=== PATIENT | male | born 1935 | race Caucasian/White ===

== ENCOUNTER 2017-01-25 05:20 | Day surgery (SDC) | payer OTHER, MEDICARE ==
[2017-01-24 17:25] VITALS: BMI 24.3
[2017-01-25 08:02] VITALS: TEMP 98.2
[2017-01-25] MEDS ORDERED: methylPREDNISolone ACET (DEPO) 80 MG/1 ML VIAL ONE (09:23)
[2017-01-25] MEDS ORDERED: BUPIVACAINE HCL/PF 0.25% (2.5MG/ML) 10 ML VIAL ONE (09:23)
[2017-01-25] MEDS ORDERED: BUPIVACAINE HCL/PF 0.5% (5MG/ML) 10 ML VIAL ONE (09:23)
[2017-01-25] MEDS ORDERED: methylPREDNISolone ACET (DEPO) 80 MG/1 ML VIAL IJ ONE ×2 (09:42→09:46)
[2017-01-25] MEDS ORDERED: LIDOCAINE HCL 1%, 10 MG/ML (50 mL VIAL) IJ ONE ×2 (09:42→09:44)
[2017-01-25] MEDS ORDERED: BUPIVACAINE HCL/PF 0.5% (5MG/ML) 10 ML VIAL IJ ONE ×2 (09:43→09:46)
[2017-01-25 12:53] VITALS: BP 100/60; PULSE 85
--- NOTE | 2017-01-25 22:59 | OP ---
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 ATTENDING SURGEON: Jorden Stone M.D. PROCEDURE: Right L5 epidural steroid injection under intraoperative fluoroscopy. ANESTHESIA: Local anesthesia with monitored anesthesia care. ANESTHESIOLOGIST: Radha Dutton M.D. INDICATION: The patient is a 81-year-old male with intractable lower back pain, lumbar radiculopathy. He has previously undergone 1 epidural steroid injection with partial relief of his symptoms. The pain has now recurred. He did experience some urinary incontinence after last injection, but he did receive IV anesthetic agent at that time. He is going to try this injection without IV sedation. The risks of procedure including but not limited to bleeding, infection, spinal headache, and neurologic injury. The patient understands indication for the procedure, procedure in detail, risks and benefits and alternative for treatment of his lumbar condition and wishes to proceed. No guarantee was given for a favorable outcome. PROCEDURE IN DETAIL: The patient was taken to the operating room. He was placed in prone position with a pillow under his hips. Lumbar region was cleaned with alcohol and prepped with Betadine. A skin wheal was raised with 5 mL of 1% Xylocaine. A 22-gauge spinal needle was inserted under AP and lateral fluoroscopic guidance from right-sided approach to L5-S1. Loss of resistance technique was utilized. There was no CSF or blood backflow. Then 80 mg of Depo-Medrol and 1 mL of 0.25% Marcaine was injected. The needle was withdrawn and sterile bandage applied. The patient tolerated the procedure well and was returned back into the supine position, moving both upper and lower extremities well. He did not complain of headache. Interlaminar approach was used with this L5-S1 injection. OR timeout procedure was followed. JORDEN STONE M.D. [id number]
== END 2017-01-25 11:30 | disposition home or self-care (01) ==
LOC: JASU-SURG 05:20
PROVIDERS: ATTEND Neurological Surgery
PROC: 3E0S33Z Introduction of Anti-inflammatory into Epidural Space, Percutaneous Approach (ICD-10-PCS; 2017-01-25)
PROC: B01BYZZ Fluoroscopy of Spinal Cord using Other Contrast (ICD-10-PCS; 2017-01-25)
PROC: 3E0S3BZ Introduction of Anesthetic Agent into Epidural Space, Percutaneous Approach (ICD-10-PCS; principal; 2017-01-25 09:00)
DX: M51.16 Intervertebral disc disorders with radiculopathy, lumbar region (principal)
CPT/HCPCS: 76000-TC

== ENCOUNTER 2017-03-07 12:03 | Inpatient (IN) | payer OTHER, MEDICARE ==
--- NOTE | 2017-03-07 12:18 | PDOC ---
History of Present Illness - General History Source: Patient, Family Exam Limitations: No Limitations - History of Present Illness Initial Comments: 03/07/17 14:06 The patient is a 81 year old male, with significant past medical history of Parkinsons disease, BPH, chronic back pain, who presents today complaining of a left hip injury s/p fall. The patient explains that he was in the backyard when he accidentally tripped on a pail and fell onto his left side onto a scalloped brick garden bed. He states that the left hip pain is 8/10 in severity and notes that he has some scrapes on the lateral left thigh. He denies head trauma and LOC. He denies chest pain, palpitations, SOB. He denies dizziness, lightheadedness, changes in vision. He denies fever, nausea, vomiting, chills. Allergies: none reported Surgical Hx: hernia repairs, ulcer repairs PCP- Dr. Vogel <Haritha Parra - Last Filed: 03/07/17 18:31> - General History Source: Patient Exam Limitations: No Limitations <Lizzie Cardoza - Last Filed: 03/09/17 07:56> - General Stated Complaint: FELL Time Seen by Provider: 03/07/17 12:16 Past History <Haritha Parra - Last Filed: 03/07/17 18:31> - Past Medical History Anemia: No Asthma: No Cancer: No Cardiac Disorders: No CVA: No COPD: No CHF: No Dementia: No Diabetes: No GI Disorders: No Disorders: No HTN: No Hypercholesterolemia: No Liver Disease: No Seizures: No Thyroid Disease: No - Surgical History Abdominal Surgery: Yes (HERNIA X2) Appendectomy: No Cardiac Surgery: No Cholecystectomy: No Lung Surgery: No Neurologic Surgery: No Orthopedic Surgery: No - Psycho/Social/Smoking Cessation Hx Anxiety: No Suicidal Ideation: No Smoking History: Never smoked Hx Alcohol Use: No Drug/Substance Use Hx: No Hx Substance Use Treatment: No <Lizzie Cardoza - Last Filed: 03/09/17 07:56> - Past Medical History Allergies/Adverse Reactions: Allergies Allergy/AdvReac Type Severity Reaction Status Date / Time No Known Allergies Allergy Verified 03/07/17 12:28 Home Medications: Ambulatory Orders Carbidopa/Levodopa [Carbidopa-Levodopa 25-250 Tab] 1 each PO TID 03/07/17 Entacapone [Comtan -] 200 mg PO TID 03/07/17 Pramipexole Di-HCl [Pramipexole ER] 1.5 mg PO TID 03/07/17 Review of Systems - Review of Systems Able to Perform ROS?: Yes Comments:: 03/07/17 14:09 GENERAL/CONSTITUTIONAL: No: fever, chills, weakness, loss of appetite. HEAD, EYES, EARS, NOSE AND THROAT: No: change in vision, ear pain, discharge, sore throat, throat swelling. CARDIOVASCULAR: No: chest pain, lightheadedness, palpitations, syncope RESPIRATORY: No: cough, shortness of breath, wheezing, hemoptysis, stridor. GASTROINTESTINAL: No: nausea, vomiting, abdominal cramping, diarrhea, rectal bleeding, constipation. GENITOURINARY: No: dysuria, hematuria, frequency, urgency, flank pain. MUSCULOSKELETAL: +left hip injury s/p fall. No: back pain, neck pain, joint pain, muscle swelling or pain SKIN: No: lesions, pallor, rash or easy bruising. NEUROLOGIC: No: headache, vertigo, paresthesias, weakness ENDOCRINE: No: unexplained weight gain or loss HEMATOLOGIC/LYMPHATIC: No: anemia, easy bleeding, swelling nodes <Haritha Parra - Last Filed: 03/07/17 18:31> *Physical Exam - Vital Signs Last Vital Signs Temp Pulse Resp BP Pulse Ox 97.5 F L 83 17 151/81 100 03/07/17 12:25 03/07/17 12:25 03/07/17 12:25 03/07/17 12:25 03/07/17 12:25 - Physical Exam Comments: 03/07/17 14:09 GENERAL: The patient is in no acute distress. HEAD: Normal with no signs of trauma. EYES: PERRLA, EOMI, sclera anicteric, conjunctiva clear. ENT: Ears normal, nares patent, oropharynx clear without exudates. Moist mucous membranes. NECK: Normal range of motion, supple without lymphadenopathy, JVD, or masses. LUNGS: Breath sounds equal, clear to auscultation bilaterally. No wheezes, and no crackles. HEART:Regular rate and rhythm, normal S1 and S2 without murmur, rub or gallop. ABDOMEN: Soft, nontender, normoactive bowel sounds. No guarding, no rebound. EXTREMITIES: +Left hip deformity. no edema. No clubbing or cyanosis. No erythema.. NEUROLOGICAL: +Baseline non-intentional tremor. Cranial nerves II through XII grossly intact. Normal speech. MUSCULOSKELETAL: Back nontender to palpation, no CVA tenderness SKIN: Warm, Dry, normal turgor, no rashes or lesions noted. <Haritha Parra - Last Filed: 03/07/17 18:31> Heart Score/ECG Review #1 ECG reviewed & interpreted by me at: 15:16 03/07/17 15:16 Twelve-lead EKG was performed and reviewed by me. There is normal sinus rhythm with a normal rate of 76 bpm. The intervals are abnormal - pr: 184ms, QRS:142ms , QTc:490ms. RBBB <Lizzie Cardoza - Last Filed: 03/09/17 07:56> ED Treatment Course - LABORATORY CBC & Chemistry Diagram: 03/07/17 13:00 03/07/17 13:00 - ADDITIONAL ORDERS Additional order review: Laboratory Results 03/07/17 13:00 Sodium 139 Potassium 4.1 Chloride 103 Carbon Dioxide 25 Anion Gap 11 BUN 19 H Creatinine 0.9 Creat Clearance w eGFR > 60 Random Glucose 120 H Calcium 8.8 Total Bilirubin 0.6 AST 27 ALT 13 Alkaline Phosphatase 193 H Creatine Kinase 234 Troponin I < 0.02 Total Protein 7.2 Albumin 4.0 03/07/17 13:00 RBC 4.22 MCV 91.7 MCHC 33.4 RDW 12.5 MPV 6.6 L Neutrophils % 84.5 H D Lymphocytes % 8.9 D Monocytes % 6.1 Eosinophils % 0.1 D Basophils % 0.4 - RADIOLOGY Radiograph Interpretation: 03/07/17 15:07 EXAM#: TYPE/EXAM: RESULT: [id number] CT/CERVICAL SPINE CT W/O CONTR Reason for the study. Fall with hip trauma CT scan of the cervical spine C-. Direct axial images were obtained from the base of the skull through T1-T2. The study was supplemented with computer-generated sagittal, coronal reconstruction images. Findings. No acute fracture, compression deformity, of subluxation is seen. Normal spinolaminar line. Normal relationship of odontoid to anterior arch of C1. Intact odontoid. Normal symmetrical articulation of atlantoaxial and occipito atlantal joints. A normal variant unfused posterior arch of C1 is noted The visualized portion of the posterior fossa, skull base, and uppermost of the thoracic spine show no abnormality. Normal height of vertebral bodies. No evidence of central spinal canal stenosis. Normal alignment of the facet joints. The intraspinal contents cannot be adequately evaluated due to the beam hardening artifacts. The airways are patent. No evidence of prevertebral soft tissue swelling. The lung apices are clear. Impression. No evidence of acute fracture, compression deformities, subluxation, prevertebral soft tissue swelling. Reported By: Dmitry Rodriguez MD 03/07/17 1432 EXAM#: TYPE/EXAM: RESULT: [id number] CT/HEAD CT WITHOUT CONTRAST CT scan of the brain c-. Status post fall. Findings. Serial axial images of the brain were obtained from foramen magnum to the cranial vertex without intravenous contrast. The study was supplemented with computer-generated coronal and sagittal reconstruction images. [employer] image was reviewed. There is no evidence of acute subarachnoid hemorrhage, acute intra-axial or extra-axial fluid collection consistent with subdural or epidural hematoma. No mass effect, midline shift, acute territorial ischemic changes, herniation or edema is present. Normal tam matter white matter differentiation. Age-related involutional changes are noted. Examination of the bone windows show no fracture. The visualized paranasal sinuses and mastoid air cells are clear. Hypoplastic right matter sinus. Intact facial bones Symmetrical ocular globes. Unremarkable retro-orbital soft tissues. Impression. No evidence of acute intracranial hemorrhage, edema, midline shift, mass effect , or skull fracture. No CT evidence of acute territorial infarction. Reported By: Dmitry Rodriguez MD 03/07/17 1413 EXAM#: TYPE/EXAM: RESULT: [id number] RAD/HIP PELVIS-LEFT Fall with hip pain. Single AP of the pelvis. 2. Views of the left hip. Chronic discogenic disease with scoliosis is seen in the visualized lower lumbosacral spine. Comminuted intertrochanteric fracture is seen with avulsion of the lesser trochanter. The left femoral head maintains normal relationship to the acetabulum. No acute bony abnormality seen in the visualized osseous structure and pelvis. Normal articulation of the right hip joint. Impression. Left intertrochanteric comminuted fracture with avulsion of the lesser trochanter. The left femoral head maintains normal relationship to the acetabulum. Reported By: Dmitry Rodriguez MD 03/07/17 1445 EXAM#: TYPE/EXAM: RESULT: [id number] RAD/KNEE 3 POS-LEFT Fall from standing. Left knee 2 views. No acute bony abnormalities are seen. Normal articular surfaces. No meniscal calcifications are seen. No large suprapatellar joint effusion is seen. Impression. No acute bony abnormalities are seen Reported By: Dmitry Rodriguez MD 03/07/17 [id number] - Medications Given in the ED: ED Medications Discontinued Medications Generic Name Dose Route Start Last Admin Trade Name Freq PRN Reason Stop Dose Admin Acetaminophen 975 mg 03/07/17 12:45 03/07/17 12:56 Tylenol - PO 03/07/17 12:46 975 mg ONCE ONE Administration <Haritha Parra - Last Filed: 03/07/17 18:31> - LABORATORY CBC & Chemistry Diagram: 03/08/17 06:20 03/08/17 06:20 <Lizzie Cardoza - Last Filed: 03/09/17 07:56> Medical Decision Making - Medical Decision Making 03/07/17 18:31 Dr. Mcfarlane was paged via office at 2:03pm. Dr. Munson is space controller. Awaiting call back. Dr. Munson was paged at 2:18pm. Dr. Munson called back at 2:20pm and spoke with Dr. Cardoza regarding the patient's care. <Haritha Parra - Last Filed: 03/07/17 18:31> - Medical Decision Making 03/07/17 12:17 A portion of this note was documented by scribe services under my direction. I have reviewed the details of the note, within reason, and agree with the documentation with the following case summary and management plan written by me. Nursing documentation reviewed and incorporated into medical decision making 03/07/17 13:06 This patient is a 81-year-old male with a history of Parkinson's disease, BPH, spinal stenosis/chronic back pain. Patient presents emergency department from home status post a fall from standing. Patient hit a pail by accident fell to the side landing on a [employer] garden bed. Patient denies head trauma. He denies loss of consciousness. Patient states he had no preceding headache, chest pain, palpitations, shortness of breath, focal weakness or numbness. In general patient is ambulatory with an unsteady gait. Currently patient complains of left hip pain, left knee pain. Will do: Basic labs CT head and Cervical spine Xray Hip and left knee Will give tylenol for pain (pt initially refused pain medications) 03/07/17 14:32 xray demonstrates left inter trochanteric fracture Case reviewed with Dr. Munson the patient will be seen by Dr Parsons this evening 03/07/17 14:33 Laboratory Tests 03/07/17 03/07/17 13:00 13:00 WBC 11.3 H D Hgb 12.9 Hct 38.7 Plt Count 253 Neutrophils % 84.5 H D Lymphocytes % 8.9 D BUN 19 H Creatinine 0.9 Creatine Kinase 234 Troponin I < 0.02 Pt in NPO 03/07/17 14:34 Case reviewed with admitting team Will admit to med surg Pending: Jovanny MADDOX PT/Type and screen Clinical Impression: Left hip fracture <Lizzie Cardoza - Last Filed: 03/09/17 07:56> *DC/Admit/Observation/Transfer - Attestations Scribe Attestion: 03/07/17 14:09 Documentation prepared by RAPHAEL Carver, acting as medical scientific officer for Lizzie Cardoza MD. <Haritha Parra - Last Filed: 03/07/17 18:31> - Discharge Dispostion Admit: Yes <Lizzie Cardoza - Last Filed: 03/09/17 07:56> Diagnosis at time of Disposition: Hip fracture, left Qualifiers: Encounter type: initial encounter Fracture type: closed Qualified Code(s): S72.002A - Fracture of unspecified part of neck of left femur, initial encounter for closed fracture - Discharge Dispostion Condition at time of disposition: Stable - Referrals
[2017-03-07 12:28] VITALS: BMI 25.8
[2017-03-07] MEDS ORDERED: ACETAMINOPHEN 325 MG TABLET (FP) PO ONE ×2 (12:45→19:00)
[2017-03-07] MEDS ORDERED: ACETAMINOPHEN 325 MG TABLET (FP) ONE ×2 (12:56→18:10)
[2017-03-07 13:21] LABS: BASOPHIL 0.4 % (0-2.0); EOSINOPHIL 0.1 % (0-4.5); MCH 30.6 pg (25.7-33.7); MCHC 33.4 g/dl (32.0-35.9); MEAN CELL VOLUME 91.7 fl (80-96); MEAN PLT VOLUME 6.6 fl (7.5-11.1); NEUTROPHILS 84.5 % (42.8-82.8); PLATELET COUNT 253 K/MM3 (134-434); RDW 12.5 % (11.9-15.9); WHITE BLOOD COUNT 11.3 K/mm3 (4.0-10.0)
[2017-03-07 13:47] LABS: ANION GAP 11 (8-16); CALCIUM 8.8 mg/dL (8.5-10.1); CO2 25 mmol/L (21-32); COCKROFT - GAULT 70.45; CREATININE 0.9 mg/dL (0.7-1.3); GLUCOSE,RANDOM 120 mg/dL (74-106); SGOT/AST 27 U/L (15-37); SGPT/ALT 13 U/L (12-78)
[2017-03-07 13:51] LABS: ALK PHOS 193 U/L (45-117); BILIRUBIN,TOTAL 0.6 mg/dL (0.2-1.0); TOT PROT 7.2 g/dl (6.4-8.2); TROPONIN I < 0.02 ng/ml (0.00-0.05)
--- NOTE | 2017-03-07 14:22 | HP ---
CHIEF COMPLAINT: "My left hip hurts." PCP: Lela HISTORY OF PRESENT ILLNESS: This is a 81 yo man with PMH Parkinson's and BPH who present for care today with left hip pain s/p trip and fall over bucket onto scalloped garden bricks. HE states that he landed on his left hip and did not strike his head. He then tried to stand but was unable to bear weight. He denies head trauma, LOC, dizziness, SOB or chest pain prior to fall. ER course was notable for: (1) Left trochanter fx (2) negative head CT (3) mild leukocytosis Recent Travel: denies PAST MEDICAL HISTORY: Parkinson's, BPH PAST SURGICAL HISTORY: inguinal hernia repair x2, appendectomy Social History: Smoking: denies Alcohol: denies Drugs: denies Family History: noncontributory Allergies No Known Allergies Allergy (Verified 03/07/17 12:28) HOME MEDICATIONS: Home Medications 3 Medication Instructions Recorded Carbidopa/Levodopa [Carbidopa-Levo 1 each PO Q3H 02/06/14 25-250 Tab] Entacapone [Comtan -] 200 mg PO Q3H 02/06/14 Pramipexole Dihydrochloride 1.5 mg PO TID 02/06/14 [Mirapex -] Ubidecarenone [Co Q-10] 300 mg PO DAILY 01/24/17 Tamsulosin HCl [Flomax] 0.4 mg PO HS 01/25/17 REVIEW OF SYSTEMS CONSTITUTIONAL: Absent: fever, chills, diaphoresis, generalized weakness, malaise, loss of appetite, weight change HEENT: Absent: rhinorrhea, nasal congestion, throat pain, throat swelling, difficulty swallowing, mouth swelling, ear pain, eye pain, visual changes CARDIOVASCULAR: Absent: chest pain, syncope, palpitations, irregular heart rate, lightheadedness , peripheral edema RESPIRATORY: Absent: cough, shortness of breath, dyspnea with exertion, orthopnea, wheezing, stridor, hemoptysis GASTROINTESTINAL: Absent: abdominal pain, abdominal distension, nausea, vomiting, diarrhea, constipation, melena, hematochezia GENITOURINARY: Absent: dysuria, frequency, urgency, hesitancy, hematuria, flank pain, genital pain MUSCULOSKELETAL: left hip pain Absent: myalgia, joint swelling, back pain, neck pain SKIN: Absent: rash, itching, pallor HEMATOLOGIC/IMMUNOLOGIC: Absent: easy bleeding, easy bruising, lymphadenopathy, frequent infections ENDOCRINE: Absent: unexplained weight gain, unexplained weight loss, heat intolerance, cold intolerance NEUROLOGIC: Absent: headache, focal weakness or paresthesias, dizziness, unsteady gait, seizure, mental status changes, bladder or bowel incontinence PSYCHIATRIC: Absent: anxiety, depression, suicidal or homicidal ideation, hallucinations. PHYSICAL EXAMINATION Vital Signs - 24 hr 3 03/07/17 12:25 Temperature 97.5 F L Pulse Rate 83 Respiratory 17 Rate Blood Pressure 151/81 O2 Sat by Pulse 100 Oximetry (%) GENERAL: Awake, alert, and fully oriented, in no acute distress. HEAD: Normal with no signs of trauma. EYES: Pupils equal, round and reactive to light, extraocular movements intact, sclera anicteric, conjunctiva clear. No lid lag. EARS, NOSE, THROAT: Ears normal, nares patent, oropharynx clear without exudates. Moist mucous membranes. NECK: Normal range of motion, supple without lymphadenopathy, JVD, or masses. LUNGS: Breath sounds equal, clear to auscultation bilaterally. No wheezes, and no crackles. No accessory muscle use. HEART: Regular rate and rhythm, normal S1 and S2 without murmur, rub or gallop. ABDOMEN: Soft, nontender, not distended, normoactive bowel sounds, no guarding, no rebound, no masses. No hepatomegaly or splenomegaly. MUSCULOSKELETAL: Normal range of motion at all joints. No bony deformities or tenderness. No CVA tenderness. UPPER EXTREMITIES: 2+ pulses, warm, well-perfused. No cyanosis. No clubbing. No peripheral edema. LOWER EXTREMITIES: 2+ pulses, warm, well-perfused. No calf tenderness. No peripheral edema. LLE shortened and externally rotated. Posterior deformity palpated with crepitus. NEUROLOGICAL: Cranial nerves II-XII intact. Normal speech. Gait not tested. Tremulous. PSYCHIATRIC: Cooperative. Good eye contact. Appropriate mood and affect. SKIN: Warm, dry, normal turgor, no rashes or lesions noted, normal capillary refill. Laboratory Results - last 24 hr 3 03/07/17 03/07/17 13:00 13:00 WBC 11.3 H D RBC 4.22 Hgb 12.9 Hct 38.7 MCV 91.7 MCHC 33.4 RDW 12.5 Plt Count 253 MPV 6.6 L Neutrophils % 84.5 H D Lymphocytes % 8.9 D Monocytes % 6.1 Eosinophils % 0.1 D Basophils % 0.4 Sodium 139 Potassium 4.1 Chloride 103 Carbon Dioxide 25 Anion Gap 11 BUN 19 H Creatinine 0.9 Creat Clearance w eGFR > 60 Random Glucose 120 H Calcium 8.8 Total Bilirubin 0.6 AST 27 ALT 13 Alkaline Phosphatase 193 H Creatine Kinase 234 CK-MB (CK-2) 2.439 Troponin I < 0.02 Total Protein 7.2 Albumin 4.0 IMAGING: CTH as read by MD Rodriguez: No evidence of acute intracranial hemorrhage, edema, midline shift, mass effect or skull fracture. No CT evidence of territorial infarction. CT c-spine as read by MD Rodriguez: No evidence of acute fracture, compression deformities, subluxation or prevertebral soft tissue swelling. Left hip/pelvis: LEft intertrochanteric comminuted fracture with avulsion of the lesser trochanter. The left femoral head maintains relationship to the acetabulum. ASSESSMENT/PLAN: A: This is a 81 yo man with PMH Parkinson's and BPH who present for care today with left hip pain s/p trip and fall over bucket onto scalloped garden bricks. He states that he landed on his left hip and did not strike his head. He then tried to stand but was unable to bear weight. He denies head trauma, LOC, dizziness, SOB or chest pain prior to fall. Given deformity and radiologic findings, pt has fractured left trochanter. P: 1. left trochanter fracture -rest -ice -tylenol PRN -ortho Oh consulted -NPO for ORIF 2. Leukocytosis -likely inflammatory response from trauma -trend WBC 3. Parkinson's disease -home meds 4. BPH -home Flomax 5. F/E/N -NS@75 -NPO for ORIF 03/08 6. PPX -hold Lovenox until after surgery Dispo: This patient requires inpatient admission for acute medical condition. Code Status: FULL CODE Visit type - Emergency Visit Emergency Visit: Yes ED Registration Date: 03/07/17 Care time: The patient presented to the Emergency Department on the above date and was hospitalized for further evaluation of their emergent condition. - New Patient This patient is new to me today: Yes Date on this admission: 03/08/17 - Critical Care Critical Care patient: No
[2017-03-07] MEDS ORDERED: SODIUM CHLORIDE 1,000 ML IV STA (14:33)
[2017-03-07] MEDS ORDERED: morphine CARPU-JECT 2 MG/1 ML DISP.SYRIN IVPUSH ONE (15:09)
[2017-03-07 15:26] LABS: INR 1.1 (0.82-1.09); PROTHROMBIN TIME (PATIENT) 12.1 SEC (9.98-11.88)
[2017-03-07] MEDS ORDERED: morphine CARPU-JECT 2 MG/1 ML DISP.SYRIN ONE (15:36)
[2017-03-07 16:16] LABS: URINE APPEARANCE CLEAR; URINE BILIRUBIN NEGATIVE (NEGATIVE); URINE BLOOD NEGATIVE (NEGATIVE); URINE COLOR AMBER; URINE GLUCOSE (UA) NEGATIVE (NEGATIVE); URINE KETONE 1+ (NEGATIVE); URINE LEUK ESTERASE NEGATIVE (NEGATIVE); URINE NITRITE NEGATIVE (NEGATIVE); URINE PROTEIN NEGATIVE (NEGATIVE); URINE UROBILINOGEN NEGATIVE E.U./dl (0.2-1.0)
--- NOTE | 2017-03-07 17:07 | CONSULT ---
Consult - text type - Consultation Consultation Note: HISTORY OF PRESENT ILLNESS: Asked to eval this 81M who sustained a left hip fracture after fall onto bricks doing work outside his house. In ER with daughter, , and brother at bedside PAST MEDICAL HISTORY: Parkinson's, BPH PAST SURGICAL HISTORY: inguinal hernia repair x2, appendectomy Social History: Smoking: denies Alcohol: denies Drugs: denies Family History: noncontributory Allergies: NKDA ROS: No recent fevers/chills/weight loss PHYSICAL EXAMINATION: AOx3 in no apparent distress, breathing comfortably, obvious tremor No obvious skin lesions, NTTP through spine B/L UE FROM without pain, distal pulses 2+, no deficits LLE shortened B/L LE well hydrated, NTTP, no peripheral edema, distal pulses 2+ RLE hip ROM without pain IMAGING: Left displaced Intertrochanteric Prox Femur Fracture, Unstable PLAN: For IMN in the morning pending medical clearance venodynes b/L for DVT prophylaxis, hold pharmacologic anticoagulation until post op NPO p midnight R/B/A discussed with patient and family: Risks include anesthesia complications , infection, non union, malunion, limb length discrepancy, persistent pain, hardware failure, NV injury.
[2017-03-07] MEDS ORDERED: oxyCODONE HCL 5 MG TABLET PO PRN (20:14)
[2017-03-07] MEDS ORDERED: ACETAMINOPHEN 325 MG TABLET (FP) PO PRN (20:14)
[2017-03-08 07:16] LABS: BASOPHIL 0.3 % (0-2.0); EOSINOPHIL 0.2 % (0-4.5); MCH 30.6 pg (25.7-33.7); MCHC 33.5 g/dl (32.0-35.9); MEAN CELL VOLUME 91.3 fl (80-96); MEAN PLT VOLUME 6.8 fl (7.5-11.1); NEUTROPHILS 70.4 % (42.8-82.8); PLATELET COUNT 246 K/MM3 (134-434); RDW 12.8 % (11.9-15.9); WHITE BLOOD COUNT 8.6 K/mm3 (4.0-10.0)
[2017-03-08 07:35] LABS: CALCIUM 8.6 mg/dL (8.5-10.1)
[2017-03-08 07:38] LABS: COCKROFT - GAULT 73.73; CREATININE 0.8 mg/dL (0.7-1.3)
[2017-03-08] MEDS ORDERED: morphine CARPU-JECT 2 MG/1 ML DISP.SYRIN IVPUSH PRN ×2 (08:16→13:21)
[2017-03-08] MEDS ORDERED: ENOXAPARIN NA (PORCINE) 40 MG/0.4 ML DISP.SYRIN SQ SCH (10:00)
[2017-03-08] MEDS ORDERED: LIDOCAINE HCL/PF 2% SDV 5ML VIAL ONE (11:24)
[2017-03-08] MEDS ORDERED: PROPOFOL 20 ML ONE (11:25)
[2017-03-08] MEDS ORDERED: MIDAZOLAM HCL 2 MG/2 ML SINGLE DOSE VIAL ONE (11:26)
[2017-03-08] MEDS ORDERED: ceFAZolin SODIUM 1 GM VIAL ONE (11:26)
[2017-03-08] MEDS ORDERED: ceFAZolin SODIUM 1 GM VIAL IVPB ONE ×2 (11:36)
[2017-03-08] MEDS ORDERED: DEXAMETHASONE SOD PHOSPHATE 4 MG/1 ML VIAL ONE (11:42)
--- NOTE | 2017-03-08 12:35 | EKG ---
Test Reason : Blood Pressure : / mmHG Vent. Rate : 076 BPM Atrial Rate : 076 BPM P-R Int : 184 ms QRS Dur : 142 ms QT Int : 436 ms P-R-T Axes : 026 003 031 degrees QTc Int : 490 ms NORMAL SINUS RHYTHM RIGHT BUNDLE BRANCH BLOCK ABNORMAL ECG NO PREVIOUS ECGS AVAILABLE Confirmed by LISA WILDE, MAGDY ([id number]) on 03/08/2017 12:34:30 PM Referred By: Confirmed By:MAGDY GONZALEZ MD
[2017-03-08] MEDS ORDERED: IBUPROFEN 800 MG/8 ML IJ IVPB PRN (13:07)
[2017-03-08] MEDS ORDERED: ACETAMINOPHEN 1000 MG/100 ML VIAL (NON FORMULARY) IVPB PRN (13:08)
[2017-03-08] MEDS ORDERED: LORAZEPAM CARPU-JECT 2 MG/ML DISP.SYRIN IVPUSH ONE (13:10)
[2017-03-08] MEDS ORDERED: SODIUM CHLORIDE 0.45% 1,000 ML IV SCH (13:15)
[2017-03-08] MEDS ORDERED: oxyCODONE HCL 5 MG TABLET PO PRN (13:21)
[2017-03-08] MEDS ORDERED: ENTACAPONE 200 MG TABLET PO SCH (14:00)
[2017-03-08] MEDS ORDERED: PRAMIPEXOLE DI HCL 1.5 MG PO SCH (14:00)
[2017-03-08] MEDS ORDERED: CARBIDOPA/LEVODOPA 25/250 TABLET (FP) PO SCH (14:00)
[2017-03-08] MEDS: CARBIDOPA/LEVODOPA 25/250 TABLET (FP) PO SCH ×2 (14:26→21:09)
[2017-03-08] MEDS: ENTACAPONE 200 MG TABLET PO SCH ×2 (14:26→21:10)
[2017-03-08] MEDS ORDERED: ACETAMINOPHEN INJECTION 100 ML IVPB ONE (14:35)
--- NOTE | 2017-03-08 16:05 | PN ---
Physical Exam: SUBJECTIVE: Patient seen and examined after hip surgery. He is obtunded given ativan in PACU d/t restlessness. Now calm, family at bedside. OBJECTIVE: Vital Signs Period Temp Pulse Resp BP Sys/Bonner Pulse Ox Last 24 Hr 97.3 F-99.1 F 72-87 12-20 119-141/63-76 97 PE Neuro: arousable to touch Pulm: clear anteriorly CV: s1 s2 rrr no mrg Abd: s nt nd + bs Ext: L hip dressing, warm +dp Laboratory Results - last 24 hr 03/08/17 03/08/17 06:20 06:20 WBC 8.6 RBC 3.94 L Hgb 12.1 Hct 36.0 MCV 91.3 MCHC 33.5 RDW 12.8 Plt Count 246 MPV 6.8 L Neutrophils % 70.4 Lymphocytes % 19.1 D Monocytes % 10.0 Eosinophils % 0.2 D Basophils % 0.3 Sodium 140 Potassium 4.2 Chloride 105 Carbon Dioxide 27 Anion Gap 8 BUN 14 D Creatinine 0.8 Random Glucose 123 H Calcium 8.6 Urine Color Urine Appearance Urine pH Ur Specific [place] Urine Protein Urine Glucose (UA) Urine Ketones Urine Blood Urine Nitrite Urine Bilirubin Urine Urobilinogen Ur Leukocyte Esterase Blood Type Antibody Screen Current Medications Generic Name Dose Route Start Last Admin Trade Name Rejiq PRN Reason Stop Dose Admin Acetaminophen 1,000 mg 03/08/17 13:08 03/08/17 14:36 Ofirmev Injection - IVPB 03/09/17 07:09 1,000 mg Q6H PRN Administration FEVER OR PAIN Acetaminophen 650 mg 03/08/17 13:21 Tylenol - PO Q6H PRN FEVER OR PAIN Carbidopa/Levodopa 1 each 03/08/17 14:00 03/08/17 14:26 Sinemet 25/250 - PO Not Given TID NASIR Docusate Sodium 100 mg 03/08/17 22:00 Colace - PO BID NASIR Enoxaparin Sodium 40 mg 03/09/17 10:00 Lovenox - SQ DAILY NASIR Entacapone 200 mg 03/08/17 14:00 03/08/17 14:26 Comtan - PO Not Given TID NASIR Fentanyl 50 mcg 03/08/17 13:07 03/08/17 13:20 Sublimaze Injection - IVPUSH 03/11/17 13:08 50 mcg [id number] PRN Administration PAIN Cefazolin Sodium 50 mls @ 100 mls/hr 03/08/17 18:00 Ancef 1gm Ivpb (Pre-Docked) IVPB 03/09/17 17:59 Q8H-IV NASIR Sodium Chloride 1,000 mls @ 75 mls/hr 03/08/17 16:15 Normal Saline - IV ASDIR NASIR Ibuprofen 800 mg 03/08/17 13:07 Caldolor Injection - IVPB Q6H PRN PAIN Morphine Sulfate 1 mg 03/08/17 13:21 Morphine Injection - IVPUSH Q4H PRN PAIN Non-Formulary Medication 1.5 mg 03/08/17 14:00 Pramipexole Di-Hcl [Pramipexole Er] PO TID NASIR Oxycodone HCl 5 mg 03/08/17 13:21 Roxicodone - PO Q4H PRN PAIN Imaging: CTH : No evidence of acute intracranial hemorrhage, edema, midline shift, mass effect or skull fracture. No CT evidence of territorial infarction. CT c-spine : No evidence of acute fracture, compression deformities, subluxation or prevertebral soft tissue swelling. Left hip/pelvis: Left intertrochanteric comminuted fracture with avulsion of the lesser trochanter. The left femoral head maintains relationship to the acetabulum. Assessment: 81 year old male with PMH Parkinson's and BPH admitted s/p fall over bucket onto scalloped garden bricks. Plan: 1. Left Trochanter Fracture - Post op Left IMN - Pain control - Lovenox 40mg daily 2. Leukocytosis - Likely inflammatory response from trauma, resolved 3. Parkinson's disease - Continue Sinemet TID - Continue Entacapone TID - Continue Pramipexole Di-Hcl 4. BPH - Continue Flomax 5. F/E/N - NS @75 - Soft diet Visit type - Emergency Visit Emergency Visit: Yes ED Registration Date: 03/07/17 Care time: The patient presented to the Emergency Department on the above date and was hospitalized for further evaluation of their emergent condition. - New Patient This patient is new to me today: Yes Date on this admission: 03/08/17 - Critical Care Critical Care patient: No
[2017-03-08] MEDS ORDERED: SODIUM CHLORIDE 1,000 ML IV SCH (16:15)
[2017-03-08] MEDS: CEFAZOLIN (PRE-DOCKED) 50 ML IVPB SCH (17:13)
[2017-03-08] MEDS: PRAMIPEXOLE DIHYDROCHLORIDE 1.5 MG TABLET PO SCH (21:08)
[2017-03-08] MEDS: DOCUSATE SODIUM 100 MG CAPSULE (FP) PO SCH (21:08)
[2017-03-09] MEDS: CEFAZOLIN (PRE-DOCKED) 50 ML IVPB SCH ×2 (02:30→10:58)
[2017-03-09] MEDS: CARBIDOPA/LEVODOPA 25/250 TABLET (FP) PO SCH ×5 (05:39→21:13)
[2017-03-09] MEDS: PRAMIPEXOLE DIHYDROCHLORIDE 1.5 MG TABLET PO SCH ×3 (05:39→21:16)
[2017-03-09] MEDS: ENTACAPONE 200 MG TABLET PO SCH ×5 (05:39→21:14)
--- NOTE | 2017-03-09 08:11 | PN ---
Progress Note (short form) - Note Progress Note: Anesthesia POD#1 S/P Left Hip Gamma nail under GA VSS,sitting in the bed,no N/V ,pain is bearable. A/P No complications seen. Mae Michelle MD.
--- NOTE | 2017-03-09 10:20 | PN ---
Progress Note (short form) - Note Progress Note: S: Patient feeling well. Pain well controlled. Minimal pain. Notes some soreness at the surgical site. Was able to walk with the assistance of a walker in PT today. Denies calf pain, CP, SOB, N/V/D, abd pain, fever/chills. O: Vital Signs Temperature 97.8 F 03/09/17 08:00 Pulse Rate 76 03/09/17 08:00 Respiratory Rate 18 03/09/17 08:00 Blood Pressure 109/61 03/09/17 08:00 O2 Sat by Pulse Oximetry (%) 97 03/08/17 15:52 NAD. VSS. Afebrile. L hip exam: Dressings C/D/I. Limited ROM of the hip. FROM knee, ankle and foot. Calves soft, NT. EHL/FHL 5/5 Distal sensation intact. CBC, BMP 03/08/17 06:20 03/08/17 06:20 A/P: 81 y/o male POD #1 s/p IM nail placement left hip -patient doing well -ortho stable -OOB/PT with walker assistance -continue pain control -continue SCDS and anti-coagulation for DVT prophylaxis -dispo planning
[2017-03-09] MEDS ORDERED: PT OWN MED DRAWER 7, Y5N ONE ×3 (10:32→21:06)
[2017-03-09] MEDS: ACETAMINOPHEN 325 MG TABLET (FP) PO PRN (10:48)
[2017-03-09] MEDS: ENOXAPARIN NA (PORCINE) 40 MG/0.4 ML DISP.SYRIN SQ SCH (10:58)
[2017-03-09] MEDS: DOCUSATE SODIUM 100 MG CAPSULE (FP) PO SCH ×2 (10:59→21:14)
--- NOTE | 2017-03-09 11:26 | PN ---
Physical Exam: SUBJECTIVE: Patient seen and examined. He feeling well, he is oob to wheel chair. Denies calf pain, sob. No signs of tremors, tolerating diet. Family at bedside OBJECTIVE: Vital Signs Period Temp Pulse Resp BP Sys/Bonner Pulse Ox Last 24 Hr 97.2 F-99.1 F 73-87 11-20 109-162/61-76 97-99 PE Neuro: alert, awake, cn 2-12intact, oriented to person place time Pulm: CTAB + NC CV: s1 s2 rrr no mrg Abd: s nt nd + bs Ext: L hip dressing, warm, no le edema Active Medications Generic Name Dose Route Start Last Admin Trade Name Freq PRN Reason Stop Dose Admin Acetaminophen 650 mg 03/08/17 13:21 03/09/17 10:48 Tylenol - PO 650 mg Q6H PRN Administration FEVER OR PAIN Carbidopa/Levodopa 1 each 03/09/17 12:00 Sinemet 25/250 - PO Q3H6XD NASIR Docusate Sodium 100 mg 03/08/17 22:00 03/09/17 10:59 Colace - PO 100 mg BID NASIR Administration Enoxaparin Sodium 40 mg 03/09/17 10:00 03/09/17 10:58 Lovenox - SQ 40 mg DAILY NASIR Administration Entacapone 200 mg 03/09/17 12:00 Comtan - PO Q3H6XD NASIR Fentanyl 50 mcg 03/08/17 13:07 03/08/17 13:20 Sublimaze Injection - IVPUSH 03/11/17 13:08 50 mcg [id number] PRN Administration PAIN Cefazolin Sodium 50 mls @ 100 mls/hr 03/08/17 18:00 03/09/17 10:58 Ancef 1gm Ivpb (Pre-Docked) IVPB 03/09/17 17:59 100 mls/hr Q8H-IV NASIR Administration Ibuprofen 800 mg 03/08/17 13:07 Caldolor Injection - IVPB Q6H PRN PAIN Oxycodone HCl 5 mg 03/08/17 13:21 Roxicodone - PO Q4H PRN PAIN Pramipexole Dihydrochloride 1.5 mg 03/08/17 22:00 03/09/17 05:39 Mirapex - PO 1.5 mg TID NASIR Administration Tamsulosin HCl 0.4 mg 03/09/17 11:30 Flomax - PO DAILY@0830 [facility] Assessment: 81 year old male with PMH Parkinson's and BPH admitted s/p fall over bucket onto scalloped garden bricks. Plan: 1. Left Trochanter Fracture - s/p IM nail placement left hip 03/08 - Pain control, transition to PO - Lovenox 40mg daily - Discontinue fluids - PT daily and DC planning 2. Leukocytosis - Resolved 3. Parkinson's disease - Continue Sinemet q3hr - Continue Entacapone q3hr - Continue Mirapex TID 4. BPH - Continue Flomax daily Visit type - Emergency Visit Emergency Visit: Yes ED Registration Date: 03/07/17 Care time: The patient presented to the Emergency Department on the above date and was hospitalized for further evaluation of their emergent condition. - New Patient This patient is new to me today: No - Critical Care Critical Care patient: No
[2017-03-09] MEDS: TAMSULOSIN HCL 0.4 MG CAP.ER.24H (FP) PO SCH (11:31)
[2017-03-09 12:40] LABS: MCH 30.8 pg (25.7-33.7); MCHC 33.5 g/dl (32.0-35.9); MEAN CELL VOLUME 91.9 fl (80-96); MEAN PLT VOLUME 7.1 fl (7.5-11.1); PLATELET COUNT 257 K/MM3 (134-434); WHITE BLOOD COUNT 11.9 K/mm3 (4.0-10.0)
[2017-03-09 13:08] LABS: ALBUMIN 3.5 g/dl (3.4-5.0); ALK PHOS 167 U/L (45-117); ANION GAP 8 (8-16); BILIRUBIN,TOTAL 0.7 mg/dL (0.2-1.0); CALCIUM 8.7 mg/dL (8.5-10.1); CO2 27 mmol/L (21-32); COCKROFT - GAULT 55.98; CREATININE 1.1 mg/dL (0.7-1.3); GLUCOSE,RANDOM 208 mg/dL (74-106); SGOT/AST 37 U/L (15-37); SGPT/ALT 14 U/L (12-78); TOT PROT 7.1 g/dl (6.4-8.2)
--- NOTE | 2017-03-09 15:00 | OP ---
DATE OF OPERATION: 03/08/2017 PREOPERATIVE DIAGNOSIS: Left intertrochanteric proximal femur fracture. POSTOPERATIVE DIAGNOSIS: Left intertrochanteric proximal femur fracture. PROCEDURE PERFORMED: Operative fixation of left intertrochanteric proximal femur fracture with intramedullary device. SURGEON: Enmanuel Parsons MD ANESTHESIA: General. INDICATION: The patient is a 81-year-old male who presented to the emergency room after a fall at home. He sustained a left displaced intertrochanteric proximal femoral fracture. He is indicated for operative fixation. Risks, benefits, and alternatives of the surgery were discussed in detail with the patient and his family. Informed consent was obtained. They understand that the risks inherent to the procedure include but are not limited to infection, neurovascular injury, nonunion, malunion, hardware failure, persistent pain. There is a significant risk of leg length discrepancy and malrotation. All questions were answered, informed consent was obtained. DESCRIPTION OF PROCEDURE: The patient was brought into the operating room by stretcher and transferred onto the fracture table. General endotracheal anesthesia was administered by the anesthesiologist. The left lower extremity was then placed in traction and internal rotation and the right lower extremity in flexion and external rotation. A fluoroscopic C-arm was brought in, and AP and lateral fluoroscopic radiographs showed excellent reduction. The hip was then prepped and draped in the usual sterile fashion and appropriate prophylactic antibiotics were administered. Timeout was performed. An incision was made in line with the proximal femur. A guidewire was then inserted under fluoroscopic guidance into the greater trochanter. A reamer was then passed with a soft tissue protector, and the assembled nail ([place] Gamma nail, 170-mm x 10-mm x 125 degrees) was assembled and passed across the proximal femur. Once it seated to appropriate level, the jig was used to place the guide for the lag screw. A small stab wound was made in the thigh and the guide was inserted. A guidewire was inserted into the center/center position, and the cannulated reamer was then passed. A 100-mm screw was then passed. The set screw was then inserted and tightened all the way and backed out 1/4 turn. The guide for the distal locking screw was then inserted under the jig through a small stab wound, and a 37.5-mm screw was then inserted. All hardware and reduction were in excellent position. The wounds were then copiously irrigated. The deep fascia was closed with No. 1 Vicryl suture. The deep dermal tissues were approximated with 2-0 Vicryl suture, and the skin was closed with hua. A sterile dressing was applied. The patient tolerated the procedure well without complications. Cuco [id number]
[2017-03-09] MEDS: POLYETHYLENE GLYCOL 3350 119 GM BTL PO SCH ×2 (18:59→21:17)
[2017-03-10] MEDS: ACETAMINOPHEN 325 MG TABLET (FP) PO PRN (01:56)
[2017-03-10] MEDS: ENTACAPONE 200 MG TABLET PO SCH ×4 (05:42→14:05)
[2017-03-10] MEDS: PRAMIPEXOLE DIHYDROCHLORIDE 1.5 MG TABLET PO SCH ×2 (05:43→13:25)
[2017-03-10] MEDS: CARBIDOPA/LEVODOPA 25/250 TABLET (FP) PO SCH ×4 (05:43→14:04)
[2017-03-10 06:47] LABS: BASOPHIL 0.7 % (0-2.0); EOSINOPHIL 0.7 % (0-4.5); MCH 31.1 pg (25.7-33.7); MCHC 33.8 g/dl (32.0-35.9); MEAN CELL VOLUME 91.9 fl (80-96); MEAN PLT VOLUME 6.8 fl (7.5-11.1); NEUTROPHILS 58.1 % (42.8-82.8); PLATELET COUNT 226 K/MM3 (134-434); WHITE BLOOD COUNT 8.3 K/mm3 (4.0-10.0)
[2017-03-10 07:21] LABS: CALCIUM 8.7 mg/dL (8.5-10.1)
[2017-03-10 07:22] LABS: COCKROFT - GAULT 74.69; CREATININE 0.8 mg/dL (0.7-1.3)
[2017-03-10] MEDS ORDERED: PT OWN MED DRAWER 7, Y5N ONE ×3 (07:37→12:00)
[2017-03-10] MEDS: TAMSULOSIN HCL 0.4 MG CAP.ER.24H (FP) PO SCH (08:12)
[2017-03-10] MEDS: ENOXAPARIN NA (PORCINE) 40 MG/0.4 ML DISP.SYRIN SQ SCH (09:00)
[2017-03-10] MEDS: POLYETHYLENE GLYCOL 3350 119 GM BTL PO SCH ×2 (09:00)
[2017-03-10] MEDS: DOCUSATE SODIUM 100 MG CAPSULE (FP) PO SCH (09:00)
--- NOTE | 2017-03-10 09:42 | PN ---
Progress Note (short form) - Note Progress Note: Subjective: The patient was seen and examined at the bedside, he has no complaints at this time. He is observed using his incentive spirometer. Current Medications Generic Name Dose Route Start Last Admin Trade Name Freq PRN Reason Stop Dose Admin Acetaminophen 650 mg 03/08/17 13:21 03/10/17 01:56 Tylenol - PO 650 mg Q6H PRN Administration FEVER OR PAIN Carbidopa/Levodopa 1 each 03/09/17 12:00 03/10/17 08:13 Sinemet 25/250 - PO 1 each Q3H6XD NASIR Administration Docusate Sodium 100 mg 03/08/17 22:00 03/10/17 09:00 Colace - PO 100 mg BID NASIR Administration Enoxaparin Sodium 40 mg 03/09/17 10:00 03/10/17 09:00 Lovenox - SQ 40 mg DAILY NASIR Administration Entacapone 200 mg 03/09/17 12:00 03/10/17 08:13 Comtan - PO 200 mg Q3H6XD NASIR Administration Ibuprofen 800 mg 03/08/17 13:07 Caldolor Injection - IVPB Q6H PRN PAIN Oxycodone HCl 5 mg 03/08/17 13:21 Roxicodone - PO Q4H PRN PAIN Polyethylene Glycol 17 gm 03/09/17 19:00 03/10/17 09:00 Miralax (For Daily Use) - PO 17 grams DAILY NASIR Administration Polyethylene Glycol 17 gm 03/09/17 19:15 03/10/17 09:00 Miralax (For Daily Use) - PO Not Given DAILY NASIR Pramipexole Dihydrochloride 1.5 mg 03/08/17 22:00 03/10/17 05:43 Mirapex - PO 1.5 mg TID NASIR Administration Tamsulosin HCl 0.4 mg 03/09/17 11:30 03/10/17 08:12 Flomax - PO 0.4 mg DAILY@0830 NASIR Administration Objective: Vital Signs Period Temp Pulse Resp BP Sys/Bonner Pulse Ox Last 24 Hr 98.0 F-98.7 F 70-75 17-20 92-138/41-74 Physical Exam: General: NAD, A&Ox3 Lungs: CTA bilaterally Heart: RRR, S1S2 Abd: Soft, non-tender, non-distended. Normoactive bowel sounds Ext: Left lateral proximal upper extremity with dressing, c/d/i. 2+ DP/PT bilaterally Neuro: CN 2-12 intact CBCD WBC 8.3 K/mm3 (4.0-10.0) D 03/10/17 06:20 RBC 3.75 M/mm3 (4.00-5.60) L 03/10/17 06:20 Hgb 11.6 GM/dL (11.7-16.9) L 03/10/17 06:20 Hct 34.5 % (35.4-49) L 03/10/17 06:20 MCV 91.9 fl (80-96) 03/10/17 06:20 MCHC 33.8 g/dl (32.0-35.9) 03/10/17 06:20 RDW 13.0 % (11.9-15.9) 03/10/17 06:20 Plt Count 226 K/MM3 (134-434) 03/10/17 06:20 MPV 6.8 fl (7.5-11.1) L 03/10/17 06:20 CMP Sodium 141 mmol/L (136-145) 03/10/17 06:20 Potassium 4.2 mmol/L (3.5-5.1) 03/10/17 06:20 Chloride 104 mmol/L (98-107) 03/10/17 06:20 Carbon Dioxide 29 mmol/L (21-32) 03/10/17 06:20 Anion Gap 8 (8-16) 03/10/17 06:20 BUN 17 mg/dL (7-18) 03/10/17 06:20 Creatinine 0.8 mg/dL (0.7-1.3) D 03/10/17 06:20 Creat Clearance w eGFR > 60 (>60) 03/09/17 12:10 Random Glucose 133 mg/dL (74-106) H D 03/10/17 06:20 Calcium 8.7 mg/dL (8.5-10.1) 03/10/17 06:20 Total Bilirubin 0.7 mg/dL (0.2-1.0) 03/09/17 12:10 AST 37 U/L (15-37) D 03/09/17 12:10 ALT 14 U/L (12-78) 03/09/17 12:10 Alkaline Phosphatase 167 U/L (45-117) H 03/09/17 12:10 Total Protein 7.1 g/dl (6.4-8.2) 03/09/17 12:10 Albumin 3.5 g/dl (3.4-5.0) 03/09/17 12:10 CARDIAC ENZYMES Creatine Kinase 234 IU/L (39-308) 03/07/17 13:00 Troponin I < 0.02 ng/ml (0.00-0.05) 03/07/17 13:00 Microbiology 03/07/17 15:36 Urine - Urine Petty Urine Culture - Final NO GROWTH OBTAINED Assessment: This is a 81 year old male with PMHx of Parkinson's disease, BPH, who presented to the ED s/p fall over bucket onto scalloped garden bricks. Plan: 1) Ortho: Left intertrocanteric fracture - S/p IM nail placement left hip on 03/08 - Pain management - Appreciate ortho consult 2) Neuro: Parkinson's disease - Continue Sinemet q3h - Continue Entacapone q3hr - Continue Mirapex TID 3) : BPH - Continue Flomax 4) F/E/N: - Monitor electrolytes - Soft diet 5) Prophylaxis: - Lovenox 40mg sq daily - PT 6) Dispo: - Awaiting SNF placement CODE STATUS: FULL CODE Visit type - Emergency Visit Emergency Visit: Yes ED Registration Date: 03/07/17 Care time: The patient presented to the Emergency Department on the above date and was hospitalized for further evaluation of their emergent condition. - New Patient This patient is new to me today: Yes Date on this admission: 03/10/17 - Critical Care Critical Care patient: No
[2017-03-10 14:03] VITALS: BP 110/65; PULSE 73; TEMP 98.4
--- NOTE | 2017-03-10 14:09 | DS ---
Physical Examination Vital Signs: Vital Signs Temperature 98.4 F 03/10/17 14:01 Pulse Rate 73 03/10/17 14:01 Respiratory Rate 18 03/10/17 14:01 Blood Pressure 110/65 03/10/17 14:01 O2 Sat by Pulse Oximetry (%) 96 03/10/17 09:00 Labs: CBC, BMP 03/10/17 06:20 03/10/17 06:20 Discharge Summary Reason For Visit: FRACTURE OF LEFT FEMUR Current Active Problems Hip fracture, left (Acute) Condition: Improved - Instructions Diet, Activity, Other Instructions: Please return to the ED with new, persistent, or worsening symptoms. Please follow-up with providers as indicated. Continue SCDs in the rehab facility. Referrals: Chema Vogel MD [Primary Care Provider] - 1 Week Enmanuel Parsons MD [Staff Physician] - (Please follow-up with Dr. Parsons within 2-3 days for post op evaluation) [facility] - Home Medications Comprehensive Discharge Medication List: Ambulatory Orders Carbidopa/Levodopa [Carbidopa-Levodopa 25-250 Tab] 1 each PO Q3H6XD 03/07/17 Entacapone [Comtan -] 200 mg PO Q3H6XD 03/07/17 Pramipexole Di-HCl [Pramipexole ER] 1.5 mg PO TID 03/07/17 Tamsulosin HCl 0.4 mg PO DAILY 03/09/17 Docusate Sodium [Colace -] 100 mg PO BID tab 03/10/17 Enoxaparin [Lovenox -] 40 mg SQ DAILY syr 03/10/17 Oxycodone HCl [Roxicodone -] 5 mg PO Q4H PRN #0 tablet MDD 20mg 03/10/17
== END 2017-03-10 15:51 | DRG 482 ==
LOC: JER 12:03 → JERBED 14:35 → J6S 18:18
PROVIDERS: ADMIT Internal Medicine; ATTEND Registered Nurse
PROC: 0QS706Z Reposition Left Upper Femur with Intramedullary Internal Fixation Device, Open Approach (ICD-10-PCS; principal; 2017-03-08 11:00)
DX: S72.142A Displaced intertrochanteric fracture of left femur, initial encounter for closed fracture (principal); W01.0XXA Fall on same level from slipping, tripping and stumbling without subsequent striking against object, initial encounter; Y93.89 Activity, other specified; Y92.238 Other place in hospital as the place of occurrence of the external cause; G20 Parkinson's disease; N40.0 Benign prostatic hyperplasia without lower urinary tract symptoms; D72.829 Elevated white blood cell count, unspecified
CPT/HCPCS: 36415; 70450-TC; 72125-TC; 73523-TC; 73562-TC-LT; 76000-TC; 80048; 80053; 81003; 82550; 82553; 84484; 85025; 85027; 85610; 86850; 86900; 86901; 87086; 93005; 93010; 94760; 97116-GP; 97161-GP; 99282-25

== ENCOUNTER 2020-05-11 07:05 | Emergency (ER) | payer OTHER, MEDICARE ==
[2020-05-11 07:25] VITALS: BMI 21.9
--- NOTE | 2020-05-11 07:28 | PDOC ---
History of Present Illness - General Chief Complaint: Urinary Problem Stated Complaint: URINARY PROBLEM Time Seen by Provider: 05/11/20 07:28 - History of Present Illness Initial Comments: 84 YOM h/o Parkinson disease presents with decreased urinary frequency of one day duration. Patient reports that last night he had the urge to urinate but was unable to produce much urine. He also experienced some pain and burning with urination. Does mention some chronic constipation as well as lower back pain. He denies blood in urine, fever/chills, chest pain, SOB, nausea, vomiting or diarrhea. Past History - Medical History Allergies/Adverse Reactions: Allergies Allergy/AdvReac Type Severity Reaction Status Date / Time No Known Allergies Allergy Verified 05/11/20 07:20 Home Medications: Ambulatory Orders Carbidopa/Levodopa [Carbidopa-Levodopa 25-250 Tab] 1 each PO Q3H6XD 03/07/17 Entacapone [Comtan -] 200 mg PO Q3H6XD 03/07/17 Pramipexole Di-HCl [Pramipexole ER] 1.5 mg PO TID 03/07/17 Tamsulosin HCl 0.4 mg PO DAILY 03/09/17 Docusate Sodium [Colace -] 100 mg PO BID tab 03/10/17 Enoxaparin [Lovenox -] 40 mg SQ DAILY syr 03/10/17 oxyCODONE HCL [Roxicodone -] 5 mg PO Q4H PRN #0 tablet MDD 20mg 03/10/17 Anemia: No Asthma: No Cancer: No Cardiac Disorders: No CVA: No COPD: No CHF: No Dementia: No Diabetes: No GI Disorders: No Disorders: Yes (PROSTATE ISSUE, UNSURE) HTN: No Hypercholesterolemia: No Liver Disease: No Seizures: No Thyroid Disease: No Other medical history: PARKINSONS - Surgical History Abdominal Surgery: Yes (HERNIA X2) Appendectomy: No Cardiac Surgery: No Cholecystectomy: No Lung Surgery: No Neurologic Surgery: No Orthopedic Surgery: No - Immunization History Immunization Up to Date: Yes - Psycho-Social/Smoking History Smoking History: Never smoked Have you smoked in the past 12 months: No - Substance Abuse Hx (Audit-C & DAST Scrn) How often the patient has a drink containing alcohol: Never Score: In Men: 4 or > Positive; In Women: 3 or > Positive: 0 Screen Result (Pos requires Nsg. Audit-10AR): Negative In the last yr the pt used illegal drug/Rx for NonMed reason: No Score: Yes response is considered Positive: 0 Screen Result (Positive result requires Nsg. DAST-10): Negative Review of Systems - Review of Systems Constitutional: No: Chills, Diaphoresis, Fever, Loss of Appetite, Night Sweats HEENTM: No: Eye Pain, Blurred Vision, Tearing, Recent change in vision, Double Vision, Cataracts Respiratory: No: Cough, Orthopnea, Shortness of Breath, SOB with Exertion, SOB at Rest, Stridor Cardiac (ROS): No: Chest Pain, Edema, Irregular Heart Rate, Lightheadedness, Palpitations ABD/GI: No: Abdominal Distended, Abd. Pain w/ defecation, Blood Streaked Bowels, Constipated, Diarrhea, Difficulty Swallowing : Yes: Burning, Dysuria Musculoskeletal: No: Back Pain, Gout, Joint Pain, Joint Swelling Neurological: No: Headache, Numbness, Paresthesia Psychiatric: No: Frequent Crying, Stressors, Sleep Pattern Change, Change in Appetite Endocrine: No: Excessive Sweating, Flushing Hematologic/Lymphatic: No: Anemia, Blood Clots, Easy Bleeding, Easy Bruising, Bleeding Diathesis *Physical Exam - Vital Signs Last Vital Signs Temp Pulse Resp BP Pulse Ox 98.5 F 120 H 20 120/79 100 05/11/20 07:20 05/11/20 07:20 05/11/20 07:20 05/11/20 07:20 05/11/20 07:20 - Physical Exam General Appearance: Yes: Appropriately Dressed, Cachetic HEENT: positive: EOMI, NAZ, Normal ENT Inspection, Normal Voice, Symmetrical Neck: positive: Trachea midline, Normal Thyroid Respiratory/Chest: positive: Lungs Clear, Normal Breath Sounds Cardiovascular: positive: Regular Rhythm, Regular Rate, S1, S2 Gastrointestinal/Abdominal: positive: Flat, Soft Extremity: positive: Normal Capillary Refill, Normal Inspection Integumentary: positive: Normal Color, Dry, Warm Neurologic: positive: director of gift planning II-XII NML intact, Fully Oriented, Alert, Normal Mood/Affect, Normal Response, Motor Strength 5/5 Medical Decision Making - Medical Decision Making 84 YOM h/o Parkinson disease presents with decreased urinary frequency of one day duration. Patient reports that last night he had the urge to urinate but was unable to produce much urine. He also experienced some pain and burning with urination. Does mention some chronic constipation as well as lower back pain. He denies blood in urine, fever/chills, chest pain, SOB, nausea, vomiting or diarrhea. Patient tachy to 120 on arrival, vitals otherwise wnl. Physical exam revealing of cachetic patient who persistently leans to right side to avoid aggravation of back pain. Physical exam otherwise wnl. ddx includes but is not limited to: UTI, BPH, urinary retention 2/2 medication. plan: UA, UC, cooper catheter, bladder scan reassess: UA and UC were wnl, cathether drained 800mls of urine, post void bladder scan reveals 0ml retained urine. Will d/c patient to home. Dispo: d/c patient to home 05/11/20 18:38 Discharge - Discharge Information Problems reviewed: Yes Clinical Impression/Diagnosis: Acute urinary retention, Urinary retention Condition: Improved Disposition: HOME - Admission No - Follow up/Referral Referrals: Mahad Harmon MD [Primary Care Provider] - - Patient Discharge Instructions Patient Printed Discharge Instructions: DI for Urinary Retention in Men Additional Instructions: You were seen in the emergency department for urinary discomfort/ retention. You received a urinanalysis which showed no evidence of infection. You also received a cooper catheter which was able to completely empty your bladder. You were considered medically stable and safe for discharge. Please follow up with your urologist/ primary care physician for further management. Please return to the emergency department for worsening of symptoms including fever, chills, nausea, vomiting, chest pain, or shortness of breath, or blood in urine or stool. - Post Discharge Activity
[2020-05-11] MEDS ORDERED: ACETAMINOPHEN 325 MG TABLET (FP) PO ONE (07:58)
--- NOTE | 2020-05-11 08:48 | PDOC ---
Attending Attestation - Resident Resident Name: Praveen Miranda - ED Attending Attestation I have performed the following: I have examined & evaluated the patient, The case was reviewed & discussed with the resident, I agree w/resident's findings & plan - HPI HPI: 05/11/20 08:31 84-year-old male with history of BPH on tamsulosin daily presents with urinary retention since last night around 9 PM. Patient was in his usual state of normal health, urinating normally throughout the day, starting at 9 PM had difficulty urinating with increasing suprapubic discomfort throughout the night, no associated nausea/vomiting/fever/dysuria/hematuria. Has had similar episodes in the past, presents for evaluation. Urologist is at [facility] in [place], cannot recall name. - Physicial Exam PE: 05/11/20 08:32 Tachycardia, afebrile, blood pressure normal Well-appearing pleasant gentleman lying in stretcher status post Petty placement Feels markedly improved Heart is regular, lungs are clear Abdomen is soft/nondistended. Previously noted suprapubic discomfort resolved 800 cc of clear urine removed from Petty catheter No CVA tenderness no edema - Medical Decision Making 05/11/20 08:33 84-year-old male with history of BPH presents with urinary retention for less than 12 hours, nonseptic appearing but with suprapubic discomfort, resolved after Petty placement. Urinalysis and urine culture Petty catheter to leg bag Monitor urine output, disposition accordingly with urology 05/11/20 09:14 hematuria without evidence of infection on UA Discharge - Discharge Information Problems reviewed: Yes Clinical Impression/Diagnosis: Acute urinary retention - Follow up/Referral Referrals: Mahad Harmon MD [Primary Care Provider] - - Patient Discharge Instructions - Post Discharge Activity
[2020-05-11 08:54] LABS: EPI CELLS 3 /uL (0-25.1); HYALINE CASTS 0 /uL (0-3.1); PH,URINE 6.5 (5.0-8.0); URINE APPEARANCE CLEAR; URINE BACTERIA 35 /uL (0-1359); URINE BILIRUBIN NEGATIVE (NEGATIVE); URINE COLOR DK YELLOW; URINE GLUCOSE (UA) NEGATIVE (NEGATIVE); URINE KETONE NEGATIVE (NEGATIVE); URINE LEUK ESTERASE NEGATIVE (NEGATIVE); URINE NITRITE NEGATIVE (NEGATIVE); URINE PROTEIN NEGATIVE (NEGATIVE); URINE RBC 220 /uL (0-23.9); URINE UROBILINOGEN 0.2 mg/dL (0.2-1.0); URINE WBC 2 /uL (0-25.8)
[2020-05-11 10:27] VITALS: BP 124/67; PULSE 92; TEMP 98
== END 2020-05-11 10:28 | disposition home or self-care (01) ==
LOC: JER 07:05
DX: R33.9 Retention of urine, unspecified (principal)
CPT/HCPCS: 81003; 87086; 99283-25

== ENCOUNTER 2020-05-25 18:30 | Inpatient (IN) | payer OTHER, MEDICARE ==
--- NOTE | 2020-05-25 18:42 | PDOC ---
Rapid Medical Evaluation Time Seen by Provider: 05/25/20 18:40 Medical Evaluation: Allergies Allergy/AdvReac Type Severity Reaction Status Date / Time No Known Allergies Allergy Verified 05/25/20 18:40 05/25/20 18:40 Pt presents for evaluation of urinary retention. Pt last urinated at 9am when cooper was removed Exam: suprapubic discomfort Orders: cooper Pt to proceed to the ER for further evaluation Discharge Disposition - Diagnosis Acute urinary retention - Referrals - Patient Instructions - Post Discharge Activity
--- NOTE | 2020-05-25 19:20 | PDOC ---
Attending Attestation - Resident Resident Name: Catherine Linder - ED Attending Attestation I have performed the following: I have examined & evaluated the patient, The case was reviewed & discussed with the resident, I agree w/resident's findings & plan - HPI HPI: 05/25/20 19:30 see resident hpi - Physicial Exam PE: 05/25/20 19:30 see resident exam - Medical Decision Making 05/25/20 19:30 84-year-old male with urinary retention after passing voiding trial earlier today at his doctor's office Petty placed by nursing without incident with immediate return of 900 cc of urine Plan for urinalysis/basic labs and eventual DC home pending results with urology outpatient follow-up 05/25/20 19:32 05/25/20 19:33 Discharge - Discharge Information Problems reviewed: Yes Clinical Impression/Diagnosis: Acute urinary retention - Follow up/Referral Referrals: Mahad Harmon MD [Primary Care Provider] - - Patient Discharge Instructions - Post Discharge Activity
--- NOTE | 2020-05-25 19:21 | PDOC ---
History of Present Illness - General Chief Complaint: Urinary Problem Stated Complaint: TROUBLE URINATING Time Seen by Provider: 05/25/20 18:40 - History of Present Illness Initial Comments: Pt is 84yo M with PMH Parkinson disease, BPH who presents with urinary retention. Patient was seen 2 weeks prior here for urinary retention and sent home with a Cooper in place. Since then, he has followed up with a urologist (Dr. Corea?). Today, the urologist removed the cooper @9am, for the patient to attempt urination. Pt was unable to urinate today and had increased suprapubic pressure/pain, told by urologist to come to ED. Reports hx of constipation, but states that he has been having regular BM. [id number] states urine has appeared dark-yellow/orange, but denies any gross hematuria, clots, cloudiness to urine. Denies any f/c, chest pain, SOB, abdominal pain, n/v, loss of appetite. PCP: Aylinucaliza Urologist: Anmol PMH: Parkinson disease, BPH Meds: see chart Allergies: NKDA Speaks Persian, [id number] by bedside Review of Systems CONSTITUTIONAL:denies fever, chills, diaphoresis, generalized weakness, malaise, loss of appetite HEENT:denies rhinorrhea, nasal congestion, sore throat CARDIOVASCULAR:denies chest pain, palpitations, irregular heart rate, lightheadedness RESPIRATORY:denies cough, shortness of breath GASTROINTESTINAL: denies abdominal pain, nausea, vomiting, diarrhea, constipation GENITOURINARY:denies dysuria, frequency, urgency MUSCULOSKELETAL:denies myalgia, arthralgia HEMATOLOGIC/IMMUNOLOGIC:denies easy bleeding, easy bruising ENDOCRINE: denies unexplained weight gain, unexplained weight loss NEUROLOGIC:denies headache, loss of consciousness, mental status changes SKIN:denies rash, itching, pallor Physical Exam General: awake, alert, in no acute distress, well developed, well nourished Head: normocephalic, atraumatic Eyes: PERRL, EOMI, anicteric sclera, conjunctiva clear ENT: Auricles normal inspection, hearing grossly normal, oropharynx clear without exudates. No nasal congestion Moist mucous membranes Neck: supple, normal ROM Lung: equal breath sounds b/l, CTA b/l, no crackles, wheezes; no distress, speaks full sentences Heart: RRR, normal S1, S2, no murmurs appreciated Abdomen: soft, non tender, normoactive bowel sounds, no guarding, rebound, masses Extremities: no edema, no erythema or tenderness, DP/PT pulses 2+ and symmetric Neuro: CN2-12 grossly intact, moves all extremities, normal speech, sensation intact Skin: warm, dry, no rashes or lesions noted MDM Pt is 84yo M with PMH Parkinson disease, BPH who presents with urinary retention. On arrival was tachycardic (120s) DDx including but not limited to: urinary retention, UTI Workup: labs (cbc, cmp, ua) TX: cooper placement ED course - Patient well appearing following placement of cooper - labs: leukocytosis, no anemia, electrolytes WNL, UA with bacteriuria, +LE - given initial HR 120, leukocytosis - Will order blood cultures, lactate - Will give 1g Rocephin Admission discussed with pt and his family who agreed with plan. Spoke with Dr. Harmon who accepted care of patient. Disposition: Admit Past History - Medical History Allergies/Adverse Reactions: Allergies Allergy/AdvReac Type Severity Reaction Status Date / Time No Known Allergies Allergy Verified 05/25/20 18:40 Home Medications: Ambulatory Orders Carbidopa/Levodopa [Carbidopa-Levodopa 25-250 Tab] 1 each PO Q3H6XD 03/07/17 Entacapone [Comtan -] 200 mg PO Q3H6XD 03/07/17 Pramipexole Di-HCl [Pramipexole ER] 1.5 mg PO TID 03/07/17 Tamsulosin HCl 0.4 mg PO DAILY 03/09/17 Docusate Sodium [Colace -] 100 mg PO BID tab 03/10/17 Enoxaparin [Lovenox -] 40 mg SQ DAILY syr 03/10/17 oxyCODONE HCL [Roxicodone -] 5 mg PO Q4H PRN #0 tablet MDD 20mg 03/10/17 Anemia: No Asthma: No Cancer: No Cardiac Disorders: No CVA: No COPD: No CHF: No Dementia: No Diabetes: No GI Disorders: No Disorders: Yes (PROSTATE ISSUE, UNSURE) HTN: No Hypercholesterolemia: No Liver Disease: No Seizures: No Thyroid Disease: No - Surgical History Abdominal Surgery: Yes (HERNIA X2) Appendectomy: No Cardiac Surgery: No Cholecystectomy: No Lung Surgery: No Neurologic Surgery: No Orthopedic Surgery: No - Immunization History Immunization Up to Date: Yes - Psycho-Social/Smoking History Smoking History: Never smoked Have you smoked in the past 12 months: No - Substance Abuse Hx (Audit-C & DAST Scrn) How often the patient has a drink containing alcohol: Never Score: In Men: 4 or > Positive; In Women: 3 or > Positive: 0 Screen Result (Pos requires Nsg. Audit-10AR): Negative In the last yr the pt used illegal drug/Rx for NonMed reason: No Score: Yes response is considered Positive: 0 Screen Result (Positive result requires Nsg. DAST-10): Negative *Physical Exam - Vital Signs Last Vital Signs Temp Pulse Resp BP Pulse Ox 99.0 F 125 H 20 127/82 100 05/25/20 18:40 05/25/20 18:40 05/25/20 18:40 05/25/20 18:40 05/25/20 18:40 ED Treatment Course - LABORATORY CBC & Chemistry Diagram: 05/27/20 08:10 05/27/20 08:10 Discharge - Discharge Information Problems reviewed: Yes Clinical Impression/Diagnosis: Acute urinary retention Condition: Stable Disposition: HOME - Admission Yes - Follow up/Referral - Patient Discharge Instructions - Post Discharge Activity
[2020-05-25 20:04] LABS: BASO % 0.4 % (0-2.0); EOS % 0.1 % (0-4.5); HEMATOCRIT 35.8 % (35.4-49); HEMOGLOBIN 11.8 GM/dL (11.7-16.9); LYMPH % 7.2 % (8-40); MCH 30.7 pg (25.7-33.7); MONO % 6.1 % (3.8-10.2); NEUT % 86.2 % (42.8-82.8); PLATELET COUNT 361 K/MM3 (134-434); RBC 3.85 M/mm3 (4.00-5.60); RDW 13.4 % (11.9-15.9); WHITE BLOOD COUNT 11.7 K/mm3 (4.0-10.0)
[2020-05-25 20:08] LABS: EPI CELLS 21 /uL (0-25.1); HYALINE CASTS 7 /uL (0-3.1); URINE APPEARANCE TURBID; URINE BACTERIA >9,000 /uL (0-1359); URINE BILIRUBIN NEGATIVE (NEGATIVE); URINE COLOR YELLOW; URINE GLUCOSE (UA) NEGATIVE (NEGATIVE); URINE KETONE NEGATIVE (NEGATIVE); URINE LEUK ESTERASE 3+ (NEGATIVE); URINE NITRITE NEGATIVE (NEGATIVE); URINE PROTEIN NEGATIVE (NEGATIVE); URINE RBC 18 /uL (0-23.9); URINE UROBILINOGEN 0.2 mg/dL (0.2-1.0); URINE WBC 1599 /uL (0-25.8)
[2020-05-25 20:23] LABS: ALBUMIN 3.4 g/dl (3.4-5.0); BILIRUBIN,TOTAL 0.6 mg/dL (0.2-1); BLOOD UREA NITROGEN 26.7 mg/dL (7-18); CALCIUM 8.8 mg/dL (8.5-10.1); CREATININE 0.9 mg/dL (0.55-1.3); POTASSIUM 4.2 mmol/L (3.5-5.1); TOT PROT 6.7 g/dl (6.4-8.2)
[2020-05-25] MEDS ORDERED: CEFTRIAXONE 1 GM in DEXTROSE 5%-WATER - 50 ML IVPB ONE ×2 (21:03→22:53)
[2020-05-25] MEDS ORDERED: CEFTRIAXONE 1 GM/50 ML BAG ONE (21:07)
[2020-05-25] MEDS ORDERED: ALPRAZolam 0.25 MG TABLET PO PRN (22:46)
[2020-05-25] MEDS ORDERED: ENTACAPONE 200 MG TABLET PO STA (22:57)
[2020-05-25] MEDS ORDERED: SODIUM CHLORIDE 0.45% 1,000 ML IV SCH (23:15)
[2020-05-25] MEDS ORDERED: CARBIDOPA/LEVODOPA 25/250 TABLET (FP) ONE (23:19)
[2020-05-25] MEDS: PRAMIPEXOLE DIHYDROCHLORIDE 1.5 MG TABLET PO SCH (23:37)
[2020-05-25] MEDS: CARBIDOPA/LEVODOPA 25/250 TABLET (FP) PO SCH (23:37)
[2020-05-26] MEDS ORDERED: CARBIDOPA/LEVODOPA 25/250 TABLET (FP) ONE (01:59)
[2020-05-26] MEDS: CARBIDOPA/LEVODOPA 25/250 TABLET (FP) PO SCH ×5 (02:15→21:35)
[2020-05-26 04:59] VITALS: BMI 19.3
[2020-05-26] MEDS: PRAMIPEXOLE DIHYDROCHLORIDE 1.5 MG TABLET PO SCH ×3 (06:36→21:35)
[2020-05-26 08:15] LABS: HEMATOCRIT 33.9 % (35.4-49); HEMOGLOBIN 11.5 GM/dL (11.7-16.9); MCH 31.4 pg (25.7-33.7); MCHC 33.8 g/dl (32.0-35.9); MEAN CELL VOLUME 92.8 fl (80-96); MEAN PLT VOLUME 6.1 fl (7.5-11.1); PLATELET COUNT 349 K/MM3 (134-434); RBC 3.65 M/mm3 (4.00-5.60); RDW 13.4 % (11.9-15.9)
[2020-05-26 08:33] LABS: BLOOD UREA NITROGEN 21.4 mg/dL (7-18); CALCIUM 8.5 mg/dL (8.5-10.1); CREATININE 0.7 mg/dL (0.55-1.3)
[2020-05-26] MEDS ORDERED: PT OWN MED DRAWER 7, Y5N ONE ×2 (09:53→13:44)
[2020-05-26] MEDS: ENOXAPARIN NA (PORCINE) 40 MG/0.4 ML DISP.SYRIN SQ SCH (10:03)
[2020-05-26] MEDS: ENTACAPONE 200 MG TABLET PO SCH ×4 (10:04→21:35)
--- NOTE | 2020-05-26 10:16 | EKG ---
Test Reason : Blood Pressure : / mmHG Vent. Rate : 095 BPM Atrial Rate : 095 BPM P-R Int : 160 ms QRS Dur : 142 ms QT Int : 392 ms P-R-T Axes : 016 -44 028 degrees QTc Int : 492 ms SINUS RHYTHM WITH PREMATURE ATRIAL COMPLEXES LEFT AXIS DEVIATION RIGHT BUNDLE BRANCH BLOCK SEPTAL INFARCT , AGE UNDETERMINED ABNORMAL ECG WHEN COMPARED WITH ECG OF 07-MAR-2017 14:49, PREMATURE ATRIAL COMPLEXES ARE NOW PRESENT QRS AXIS SHIFTED LEFT SEPTAL INFARCT IS NOW PRESENT Confirmed by MD Tj, Ramsey ([id number]) on 05/26/2020 10:16:35 AM Referred By: Confirmed By:Ramsey Spencer MD
--- NOTE | 2020-05-26 18:30 | HP ---
Admitting History and Physical - Primary Care Physician PCP: Mahad Harmon - Admission Chief Complaint: unable to void History of Present Illness: 84 yo M with PMH advanced Parkinson disease/mobility impaired, Hx BPH who presents with urinary retention. Patient was seen 2 weeks prior here for urinary retention and sent home with a Cooper in place. Since then, he has followed up with a urologist (Dr. Corea at [facility]) who has been straight catheterizing him when he stops voiding (with the intent of him regaining ability to void on his own). Today, the urologist removed the cooper @9am, for the patient to attempt urination. Pt was unable to urinate today and had increased suprapubic pressure/pain, told by urologist to come to ED. Denies any f/c, chest pain, SOB, abdominal pain, n/v, loss of appetite. 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 Gastrointestinal: Yes: Constipation Psych: Yes: Anxiety Musculoskeletal: Yes: Chronic low back pain - Past Surgical History Additional Past Surgical History: Hip ORIF - Smoking History Smoking history: Never smoked Have you smoked in the past 12 months: No - Alcohol/Substance Use Hx Alcohol Use: No History of Substance Use: reports: None - Social History Usual Living Arrangement: Yes: With Spouse ADL: Family Assistance History of Recent Travel: No Home Medications - Allergies Allergies/Adverse Reactions: Allergies Allergy/AdvReac Type Severity Reaction Status Date / Time No Known Allergies Allergy Verified 05/25/20 18:40 - Home Medications Home Medications: Ambulatory Orders Carbidopa/Levodopa [Carbidopa-Levodopa 25-250 Tab] 1 each PO Q3H6XD 03/07/17 Entacapone [Comtan -] 200 mg PO Q3H6XD 03/07/17 Pramipexole Di-HCl [Pramipexole ER] 1.5 mg PO TID 03/07/17 Tamsulosin HCl 0.4 mg PO DAILY 03/09/17 Docusate Sodium [Colace -] 100 mg PO BID tab 03/10/17 Enoxaparin [Lovenox -] 40 mg SQ DAILY syr 03/10/17 oxyCODONE HCL [Roxicodone -] 5 mg PO Q4H PRN #0 tablet MDD 20mg 03/10/17 Family Medical History Family History: Unremarkable Review of Systems - Review of Systems Constitutional: reports: Unintentional Wgt. Loss, Weakness Eyes: reports: No Symptoms HENT: reports: No Symptoms Neck: reports: No Symptoms Cardiovascular: reports: No Symptoms Respiratory: reports: No Symptoms Gastrointestinal: reports: No Symptoms Musculoskeletal: reports: No Symptoms Neurological: reports: No Symptoms Endocrine: reports: No Symptoms Hematology/Lymphatic: reports: No Symptoms Psychiatric: reports: Anxiety Physical Examination Vital Signs: Vital Signs Temperature 97.3 F L 05/26/20 13:12 Pulse Rate 71 05/26/20 13:12 Respiratory Rate 18 05/26/20 13:12 Blood Pressure 94/50 L 05/26/20 13:12 O2 Sat by Pulse Oximetry (%) 100 05/26/20 10:00 Findings/Remarks: skin--no acute lesions head--NC eyes-midline; anicteric oral--no mucosal elsions appreciated neck--no masses lungs--clear heart--RR abd--soft, NT, ND --NL anatomy; with Cooper in place back--no yuni tenderness ext--no CCE; degen changes; DP bilat palpable neuro--alert; verbal, a bit listless, no invol movements appreciated; no resting tremors, some cogwheeling noted; no gross focal motor Laboratory Results - last 24 hr 05/25/20 05/25/20 05/25/20 19:45 19:45 19:51 WBC 11.7 H RBC 3.85 L Hgb 11.8 Hct 35.8 MCV 93.0 MCH 30.7 MCHC 33.0 RDW 13.4 Plt Count 361 D MPV 6.0 L D Absolute Neuts (auto) 10.1 H Neutrophils % 86.2 H D Lymphocytes % 7.2 L D Monocytes % 6.1 Eosinophils % 0.1 D Basophils % 0.4 Nucleated RBC % 0 Sodium 137 Potassium 4.2 Chloride 103 Carbon Dioxide 26 Anion Gap 8 BUN 26.7 H Creatinine 0.9 Est GFR (CKD-EPI)AfAm 91.86 Est GFR (CKD-EPI)NonAf 79.26 Random Glucose 155 H Hemoglobin A1c % Lactic Acid Calcium 8.8 Total Bilirubin 0.6 AST 21 ALT 10 L Alkaline Phosphatase 102 Creatine Kinase Creatine Kinase Index CK-MB (CK-2) Total Protein 6.7 Albumin 3.4 Urine Color Yellow Urine Appearance Turbid Urine pH 6.0 Ur Specific [place] 1.006 L Urine Protein Negative Urine Glucose (UA) Negative Urine Ketones Negative Urine Blood 2+ H Urine Nitrite Negative Urine Bilirubin Negative Urine Urobilinogen 0.2 Ur Leukocyte Esterase 3+ H Urine WBC (Auto) 1599 Urine RBC (Auto) 18 Urine Casts (Auto) 7 U Pathogenic Cast Auto 0-2 U Epithel Cells (Auto) 21 Urine Bacteria (Auto) >9,000 05/25/20 05/26/20 05/26/20 21:20 07:46 07:46 WBC 9.0 RBC 3.65 L Hgb 11.5 L Hct 33.9 L MCV 92.8 MCH 31.4 MCHC 33.8 RDW 13.4 Plt Count 349 MPV 6.1 L Absolute Neuts (auto) Neutrophils % Lymphocytes % Monocytes % Eosinophils % Basophils % Nucleated RBC % Sodium 143 Potassium 4.0 Chloride 106 Carbon Dioxide 28 Anion Gap 8 BUN 21.4 H Creatinine 0.7 Est GFR (CKD-EPI)AfAm 101.86 Est GFR (CKD-EPI)NonAf 87.88 Random Glucose 93 Hemoglobin A1c % Lactic Acid 0.8 Calcium 8.5 Total Bilirubin AST ALT Alkaline Phosphatase Creatine Kinase 163 Creatine Kinase Index 3.5 CK-MB (CK-2) 5.8 H Total Protein Albumin Urine Color Urine Appearance Urine pH Ur Specific [place] Urine Protein Urine Glucose (UA) Urine Ketones Urine Blood Urine Nitrite Urine Bilirubin Urine Urobilinogen Ur Leukocyte Esterase Urine WBC (Auto) Urine RBC (Auto) Urine Casts (Auto) U Pathogenic Cast Auto U Epithel Cells (Auto) Urine Bacteria (Auto) 05/26/20 07:46 WBC RBC Hgb Hct MCV MCH MCHC RDW Plt Count MPV Absolute Neuts (auto) Neutrophils % Lymphocytes % Monocytes % Eosinophils % Basophils % Nucleated RBC % Sodium Potassium Chloride Carbon Dioxide Anion Gap BUN Creatinine Est GFR (CKD-EPI)AfAm Est GFR (CKD-EPI)NonAf Random Glucose Hemoglobin A1c % 5.8 Lactic Acid Calcium Total Bilirubin AST ALT Alkaline Phosphatase Creatine Kinase Creatine Kinase Index CK-MB (CK-2) Total Protein Albumin Urine Color Urine Appearance Urine pH Ur Specific [place] Urine Protein Urine Glucose (UA) Urine Ketones Urine Blood Urine Nitrite Urine Bilirubin Urine Urobilinogen Ur Leukocyte Esterase Urine WBC (Auto) Urine RBC (Auto) Urine Casts (Auto) U Pathogenic Cast Auto U Epithel Cells (Auto) Urine Bacteria (Auto) deficits Labs: CBC, BMP 05/26/20 07:46 05/26/20 07:46 Imaging - Results Chest X-ray: Report Reviewed EKG: Report Reviewed Problem List - Problems (1) Acute urinary retention Assessment/Plan: 2nd prostatic enlargement; has been under Urologic care howver, now unable to void at all inspite of Max dose Flomax. Condition not new and has been slowly worsening over the last few yrs. PLAN: may need surg intervention. Code(s): R33.8 - OTHER RETENTION OF URINE (2) Bacteriuria with pyuria Assessment/Plan: together w/ obstructive Uropathy, likely 2/2 instrumentation, afebrile. PLAN: IV Abs Code(s): R82.71 - BACTERIURIA; R82.81 - PYURIA (3) Parkinson disease, symptomatic Assessment/Plan: advanced w/ severe Movement dz; not new and has been under Neurol care. PLAN: cont all 3 agents he has been taking for now. Code(s): G20 - PARKINSON'S DISEASE (4) Abnormal EKG Assessment/Plan: RBBB, but now describes the presence of an (non acute infarct pattern) No Hx of Htn PLAN: check ECHO Code(s): R94.31 - ABNORMAL ELECTROCARDIOGRAM [ECG] [EKG] (5) Weight loss, unintentional Assessment/Plan: eats well (according to family); likely 2nd in creased caloric consumption, as he is very hyperkinetic 2/2 his movement disorder (is constantly in motion) though his ability to ambulate has deteriorated: Plan: may need BUCKLE ASSEMBLER eval Code(s): R63.4 - ABNORMAL WEIGHT LOSS (6) Declining mobility Assessment/Plan: 2/2 to his advanced movement Dz; and has been more dependent on his for his ADLs. PLAN: Pt eval. Code(s): Z74.09 - OTHER REDUCED MOBILITY (7) Anxiety and depression Assessment/Plan: likley in reaction to his decling condition; will Rx trial of SSRI Code(s): F41.9 - ANXIETY DISORDER, UNSPECIFIED; F32.9 - MAJOR DEPRESSIVE DISORDER, SINGLE EPISODE, UNSPECIFIED (8) Dehydration Assessment/Plan: mild; will start IVF Code(s): E86.0 - DEHYDRATION Assessment/Plan debilitated and mobil;ity impaired M with Obstructive Uropathy and UTI who will need further intervention; Mgmt as outlined above. ~~~~~~~~~~~~~~~~~~~~~~~~~~ D/w daughter ````````````````````` Dr Harmon
[2020-05-26] MEDS ORDERED: POLYETHYLENE GLYCOL 3350 119 GM BTL PO PRN (18:48)
[2020-05-26] MEDS ORDERED: CEFTRIAXONE 1 GM in DEXTROSE 5%-WATER - 50 ML IVPB ONE (20:00)
[2020-05-26] MEDS ORDERED: BISACODYL 10 MG SUPP.RECT PR ONE (20:20)
[2020-05-26] MEDS ORDERED: SENNOSIDES 8.6MG TABLET (FP) PO PRN (20:20)
[2020-05-26] MEDS ORDERED: cefTRIAXone SODIUM 1 GM VIAL ONE (21:00)
[2020-05-26] MEDS ORDERED: DEXTROSE 5%-WATER - 50 ML IVPB ONE (21:00)
[2020-05-27] MEDS ORDERED: SODIUM CHLORIDE 0.45% 1,000 ML IV SCH (00:19)
[2020-05-27] MEDS: CARBIDOPA/LEVODOPA 25/250 TABLET (FP) PO SCH ×6 (01:21→21:04)
[2020-05-27] MEDS: ENTACAPONE 200 MG TABLET PO SCH ×6 (01:21→21:06)
[2020-05-27] MEDS: PRAMIPEXOLE DIHYDROCHLORIDE 1.5 MG TABLET PO SCH ×3 (06:53→21:05)
[2020-05-27 09:36] LABS: HEMOGLOBIN 11.9 GM/dL (11.7-16.9); MCH 31.5 pg (25.7-33.7); MEAN CELL VOLUME 92.8 fl (80-96); MEAN PLT VOLUME 6.3 fl (7.5-11.1); PLATELET COUNT 368 K/MM3 (134-434); RBC 3.77 M/mm3 (4.00-5.60); RDW 13.3 % (11.9-15.9); WHITE BLOOD COUNT 6.8 K/mm3 (4.0-10.0)
[2020-05-27] MEDS ORDERED: ESCITALOPRAM OXALATE 10 MG TABLET PO ONE (10:00)
[2020-05-27 10:08] LABS: BLOOD UREA NITROGEN 19.1 mg/dL (7-18); CALCIUM 8.5 mg/dL (8.5-10.1); CREATININE 0.7 mg/dL (0.55-1.3); POTASSIUM 4.4 mmol/L (3.5-5.1)
--- NOTE | 2020-05-27 10:15 | CONSULT ---
Admitting History and Physical - Admission History of Present Illness: 84 yo M with PMH advanced Parkinson disease/mobility impaired, Hx BPH who presents with urinary retention. Patient was seen 2 weeks prior here for urinary retention and sent home with a Cooper in place. Since then, he has followed up with a urologist (Dr. Corea at [facility]) who has been straight catheterizing him when he stops voiding (with the intent of him regaining ability to void on his own). Today, the urologist removed the cooper @9am, for the patient to attempt urination. Pt was unable to urinate today and had increased suprapubic pressure/pain, told by urologist to come to ED. Denies any f/c, chest pain, SOB, abdominal pain, n/v, loss of appetite. Selected Entries 05/26/20 05/26/20 05/26/20 04:00 09:27 13:12 Breakfast 75% Eating (Feeding Independent ) Ability Lunch 100% Supper Temperature Pulse Rate Blood Pressure 05/26/20 05/27/20 05/27/20 23:00 02:00 06:00 Breakfast Eating (Feeding ) Ability Lunch Supper 75% Temperature 97.5 F L 97.6 F Pulse Rate 69 74 Blood Pressure 142/80 126/90 Laboratory Tests 05/25/20 05/26/20 05/27/20 19:45 07:46 08:10 WBC 11.7 H 9.0 6.8 Laboratory Tests 05/25/20 21:20 COVID-19 (KENISHA) Pending This is my first consult with this pt Family report pt on reg diet/thin liquids at home and they would like diet up graded History Source: Medical Record Limitations to Obtaining History: Clinical Condition, Language Barrier - Past Medical History 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 Gastrointestinal: Yes: Constipation Psych: Yes: Anxiety Musculoskeletal: Yes: Chronic low back pain - Past Surgical History Additional Past Surgical History: Hip ORIF - Smoking History Smoking history: Never smoked Have you smoked in the past 12 months: No - Alcohol/Substance Use Hx Alcohol Use: No History of Substance Use: reports: None - Social History ADL: Family Assistance History of Recent Travel: No History - Admission Reason For Visit: COMPLICATED UTI,RETENSION OF URINE,SEPSIS - Diagnostics X-ray: Report Reviewed - General Mental Status: Awake and Alert, Able to Follow Commands, Intermittently Confused Attention: Intact Ability to Follow Directions: Fair Head/Neck Control: Fair - Hearing Hearing: Functional Hearing: Normal Speech Evaluation - Communication Primary Language: MALAYSIAN Communication: Yes: Within Normal Limits - Speech Production Able to Make Needs Known: Yes: WNL Intelligibility: Yes: WNL - Speech Characteristics Voice Loudness: Normal Voice Pitch: Yes: Normal Voice Phonatory-based Quality: Yes: Normal Speech Pattern: Normal Speech Clarity: < 100% Nasal Resonance: Normal Articulation: Yes: Precise Rate of Speech: Intact - Language/Auditory Comprehension Follows: Yes: 1 Stage Simple Commands Observation: Able to respond to yes/no queries: Yes, Yes/No Confusion: No, Comprehends Conversational Speech: Yes - Language/Verbal Expression Able to Communicate Wants and Needs: Yes: WNL (in [place]itanian) - Swallow Evaluation/Bedside Assessment Current Nutritional Intake: Dysphagia Pureed, Meridian Textured Liquids Oral Secretions: Yes: WFL Dentition: Yes: Adequate Facial Symmetry at Rest: Symmetrical Facial Symmetry on Retraction: Symmetrical Facial Movement: Controlled Against Resistance Opening: Normal Against Resistance Closing: Normal Pucker Lips: Normal Smile: Normal Lingual Movement: Normal, Symmetric Lingual Speed of Movement: Normal Lingual Movement Strgth Against Opposition: Normal Lingual Movement Characteristics: Normal Velopharyngeal Movement: Normal Laryngeal Elevation: WFL Laryngeal Movement: Able to Palpate Rate of Intake: WFL Bolus Size: WFL Labial Seal: WFL Chewing: WFL Oral Prep Time: WFL A-P Transit: WFL Pocketing: None Timing of Swallow: WFL Coughing/Throat Clear: No Change in Voice: No Recommendations - Speech Evaluation, Impression/Plan Impression: Verbal in Mauritanian.Choreic movements, feeds self. Overtly good mastication and tolerance of thin liquid with (-) 3 oz water test. - Disposition Discharge to: Rehabilitation Center - Dysphagia Impressions/Plan Dysphagia Impressions: Minimal Impairment, Ongoing Evaluation *Silent aspiration: cannot be R/O at bedside Dysphagia Treatment Plan: OOB for meals (if possible. Pt continuously pulls himself to midline in bed), OOB for 1 h. after meals Recommendations: Modified Barium Swallow (if cough, congestion, fever) - Recommendations Diet Consistency: Regular (soft) Medication Administration: Whole with water Liquids: Thin Liquids
[2020-05-27] MEDS ORDERED: PT OWN MED DRAWER 7, Y5N ONE ×3 (10:38→20:48)
[2020-05-27] MEDS: ENOXAPARIN NA (PORCINE) 40 MG/0.4 ML DISP.SYRIN SQ SCH (10:45)
--- NOTE | 2020-05-27 11:00 | ECHO ---
Version: 1 Name: DELIA ALAS Exam: Adult Echocardiogram Study Date: 05/27/2020, 9:17 AM Age: 84 Years MMode/2D Measurements & Calculations IVSd: 0.97 cm LVIDs: 2.5 cm LVIDd: 3.9 cm LVPWd: 0.92 cm LAV (MOD-bp): 79.5 ml LVOT diam: 2.37 cm Ao root diam: 3.2 cm LA dimension: 3.8 cm Doppler Measurements & Calculations MV E max paul: 34.9 cm/sec Med E/e': 7.1 MV A max paul: 46.5 cm/sec Med Peak E' Paul: 4.9 cm/sec MV E/A: 0.75 Lat E/e': 3.5 Lat Peak E' Paul: 9.9 cm/sec Ao max P.2 mmHg Ao V2 max: 134.4 cm/sec TR max paul: 217.2 cm/sec TR max P.9 mmHg Left Ventricle The left ventricular size, thickness and function are normal. EF 66%. Abnormal diastolic compliance (Grade 1). Right Ventricle The right ventricle is normal in size and function. Atria Normal left and right atrial size and function. Mitral Valve The mitral valve is normal in structure and function. Tricuspid Valve The tricuspid valve is normal in structure and function. Mild TR, PASP 24 mmHg. Aortic Valve The aortic valve is normal in structure and function. Pulmonic Valve The pulmonic valve is normal in structure and function. Great Vessels The aortic root is normal size. Pericardium/Pleura There is no pericardial effusion. Summary Statements The left ventricular size, thickness and function are normal Abnormal diastolic compliance (Grade 1) The right ventricle is normal in size and function. Normal left and right atrial size and function. The mitral valve is normal in structure and function. The tricuspid valve is normal in structure and function. The aortic valve is normal in structure and function. Mild TR, PASP 24 mmHg EF 66% MD Ramsey Spencer 05/27/2020, 10:59 AM Ordering Physician: Mahad Harmon Performed By: Kiara Ziegler
[2020-05-27] MEDS ORDERED: CEFTRIAXONE 1 GM in DEXTROSE 5%-WATER 100 ML IVPB SCH (15:30)
[2020-05-27] MEDS ORDERED: SODIUM CHLORIDE 1,000 ML IV SCH (15:30)
--- NOTE | 2020-05-27 15:33 | PN ---
Progress Note (short form) - Note Progress Note: Active Medications Carbidopa/Levodopa (Sinemet 25/250 -) 1 each PO Q4HPO [facility] Last Admin: 05/27/20 13:44 Dose: 1 each Documented by: Enoxaparin Sodium (Lovenox -) 40 mg SQ DAILY [facility] Last Admin: 05/27/20 10:45 Dose: 40 mg Documented by: Entacapone (Comtan -) 200 mg PO Q4HPO [facility] Last Admin: 05/27/20 13:44 Dose: 200 mg Documented by: Ceftriaxone Sodium 1 gm/ (Dextrose) 100 mls @ 200 mls/hr IVPB DAILY [facility] Ceftriaxone Sodium 1 gm/ (Dextrose) 50 mls @ 200 mls/hr IVPB DAILY [facility]; Protocol Sodium Chloride (Normal Saline -) 1,000 mls @ 50 mls/hr IV ASDIR NASIR Stop: 05/28/20 15:23 Pramipexole Dihydrochloride (Mirapex -) 1.5 mg PO TID [facility] Last Admin: 05/27/20 13:44 Dose: 1.5 mg Documented by: Senna (Senna -) 2 tab PO HS PRN PRN Reason: CONSTIPATION Laboratory Results - last 24 hr 05/25/20 05/27/20 05/27/20 21:20 08:10 08:10 WBC 6.8 RBC 3.77 L Hgb 11.9 Hct 35.0 L MCV 92.8 MCH 31.5 MCHC 34.0 RDW 13.3 Plt Count 368 MPV 6.3 L Sodium 142 Potassium 4.4 Chloride 106 Carbon Dioxide 28 Anion Gap 7 L BUN 19.1 H Creatinine 0.7 Est GFR (CKD-EPI)AfAm 101.86 Est GFR (CKD-EPI)NonAf 87.88 Random Glucose 116 H Calcium 8.5 Troponin I TSH 1.00 COVID-19 (KENISHA) Not detected 05/27/20 08:10 WBC RBC Hgb Hct MCV MCH MCHC RDW Plt Count MPV Sodium Potassium Chloride Carbon Dioxide Anion Gap BUN Creatinine Est GFR (CKD-EPI)AfAm Est GFR (CKD-EPI)NonAf Random Glucose Calcium Troponin I 0.11 H TSH COVID-19 ([facility]ISHA) Vital Signs Temperature 97.8 F 05/27/20 15:03 Pulse Rate 70 05/27/20 15:03 Respiratory Rate 18 05/27/20 15:03 Blood Pressure 85/53 L 05/27/20 15:03 O2 Sat by Pulse Oximetry (%) 95 05/27/20 06:00 CC: none ````````````````` skin--IV w/o redness heart--RR lungs--clear abd--benign ext--no edema Neuro--awake; confused (lapses in and out); good eye contact; follows commands; moves all Extrem; displays choreiform movements at times. `````````````````````````````````````````````````````````````` Summ > Obstructive Uropath--unable to void; has failed on high dose Flomax and has been given trial off Petty w/o success. PLAN: Urol consult > Dehydration--improved with IVF > Hypotension--episodic; likely 2/2 Parkinson meds > High Tropinin--mild with high CKmB; echo appears benign; no Hx of Htn or high Lipids as OP; ASHD; will get Cardio consult. 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 (PD), cont PD meds ```````````````````````````````````` d/w daughter at bedside ~~~~~~~~~~~~~~~~~~~~~~~ End Dr Harmon Problem List - Problems (1) Acute urinary retention Code(s): R33.8 - OTHER RETENTION OF URINE (2) Bacteriuria with pyuria Code(s): R82.71 - BACTERIURIA; R82.81 - PYURIA (3) Parkinson disease, symptomatic Code(s): G20 - PARKINSON'S DISEASE (4) Abnormal EKG Code(s): R94.31 - ABNORMAL ELECTROCARDIOGRAM [ECG] [EKG] (5) Weight loss, unintentional Code(s): R63.4 - ABNORMAL WEIGHT LOSS (6) Declining mobility Code(s): Z74.09 - OTHER REDUCED MOBILITY (7) Anxiety and depression Code(s): F41.9 - ANXIETY DISORDER, UNSPECIFIED; F32.9 - MAJOR DEPRESSIVE DISORDER, SINGLE EPISODE, UNSPECIFIED (8) Dehydration Code(s): E86.0 - DEHYDRATION
--- NOTE | 2020-05-27 16:07 | CON.CARD ---
Consult Consult Specialty:: Cardiology - History of Present Illness History of Present Illness: Pt is 84yo M with PMH Parkinson disease, BPH who presents with urinary retention. Patient was seen 2 weeks prior here for urinary retention and sent home with a Cooper in place. Since then, he has followed up with a urologist (Dr. Corea?). Today, the urologist removed the cooper @9am, for the patient to att empt urination. Pt was unable to urinate today and had increased suprapubic pressure/pain, told by urologist to come to ED. Reports hx of constipation, but states that he has been having regular BM. Wzdwjoka-[id number] states urine has appeared dark-yellow/orange, but denies any gross hematuria, clots, cloudiness to urine. Denies any f/c, chest pain, SOB, abdominal pain, n/v, loss of appetite. 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 Gastrointestinal: Yes: Constipation Psych: Yes: Anxiety Musculoskeletal: Yes: Chronic low back pain - Alcohol/Substance Use Hx Alcohol Use: No History of Substance Use: reports: None - Smoking History Smoking history: Never smoked Have you smoked in the past 12 months: No - Social History ADL: Family Assistance History of Recent Travel: No Home Medications - Allergies Allergies/Adverse Reactions: Allergies Allergy/AdvReac Type Severity Reaction Status Date / Time No Known Allergies Allergy Verified 05/25/20 18:40 - Home Medications Home Medications: Ambulatory Orders Carbidopa/Levodopa [Carbidopa-Levodopa 25-250 Tab] 1 each PO Q3H6XD 03/07/17 Entacapone [Comtan -] 200 mg PO Q3H6XD 03/07/17 Pramipexole Di-HCl [Pramipexole ER] 1.5 mg PO TID 03/07/17 Tamsulosin HCl 0.4 mg PO DAILY 03/09/17 Docusate Sodium [Colace -] 100 mg PO BID tab 03/10/17 Enoxaparin [Lovenox -] 40 mg SQ DAILY syr 03/10/17 oxyCODONE HCL [Roxicodone -] 5 mg PO Q4H PRN #0 tablet MDD 20mg 03/10/17 Family Medical History Family History: Unremarkable Review of Systems - Review of Systems Constitutional: reports: No Symptoms Eyes: reports: No Symptoms HENT: reports: No Symptoms Neck: reports: No Symptoms Cardiovascular: reports: No Symptoms Gastrointestinal: reports: No Symptoms Genitourinary: reports: Other (urinary retention) Breasts: reports: No Symptoms Reported Musculoskeletal: reports: No Symptoms Integumentary: reports: No Symptoms Neurological: reports: No Symptoms Endocrine: reports: No Symptoms Hematology/Lymphatic: reports: No Symptoms Psychiatric: reports: No Symptoms Vital Signs: Vital Signs Temperature 97.8 F 05/27/20 15:03 Pulse Rate 70 05/27/20 15:03 Respiratory Rate 18 05/27/20 15:03 Blood Pressure 85/53 L 05/27/20 15:03 O2 Sat by Pulse Oximetry (%) 95 05/27/20 06:00 Constitutional: Yes: Well Nourished, No Distress, Calm Eyes: Yes: WNL, Conjunctiva Clear, EOM Intact HENT: Yes: WNL, Atraumatic, Normocephalic Neck: Yes: WNL, Supple, Trachea Midline Respiratory: Yes: WNL, Regular, CTA Bilaterally Gastrointestinal: Yes: WNL, Normal Bowel Sounds Renal/: Yes: WNL Cardiovascular: Yes: WNL, Regular Rate and Rhythm Musculoskeletal: Yes: WNL Extremities: Yes: WNL Integumentary: Yes: WNL Psychiatric: Yes: Alert, Oriented - Other Data Labs, Other Data: CBC, BMP 05/27/20 08:10 05/27/20 08:10 Troponin, BNP 05/27/20 08:10 Troponin I 0.11 H Troponin, BNP 05/27/20 08:10 Troponin I 0.11 H Imaging - Results Chest X-ray: Image Reviewed (no i/e) EKG: Image Reviewed (sr apcs rbbb LDEA ne ?septal GA) Other: Report Reviewed (ECHO WNL) Problem List - Problems (1) Abnormal EKG Code(s): R94.31 - ABNORMAL ELECTROCARDIOGRAM [ECG] [EKG] (2) Acute urinary retention Code(s): R33.8 - OTHER RETENTION OF URINE (3) Anxiety and depression Code(s): F41.9 - ANXIETY DISORDER, UNSPECIFIED; F32.9 - MAJOR DEPRESSIVE DISORDER, SINGLE EPISODE, UNSPECIFIED (4) Bacteriuria with pyuria Code(s): R82.71 - BACTERIURIA; R82.81 - PYURIA (5) Declining mobility Code(s): Z74.09 - OTHER REDUCED MOBILITY (6) Dehydration Code(s): E86.0 - DEHYDRATION (7) Parkinson disease, symptomatic Code(s): G20 - PARKINSON'S DISEASE (8) Weight loss, unintentional Code(s): R63.4 - ABNORMAL WEIGHT LOSS (9) Hip fracture, left Code(s): S72.002A - FRACTURE OF UNSP PART OF NECK OF LEFT FEMUR, INIT Qualifiers: Encounter type: initial encounter Fracture type: closed Qualified Code(s): S72.002A - Fracture of unspecified part of neck of left femur, initial encounter for closed fracture (10) Urinary retention Code(s): R33.9 - RETENTION OF URINE, UNSPECIFIED Assessment/Plan Parkinson ds mildly elevated TNIs NO CP ECHO wnl new old septal GA on EKG Plan; Transfer to telemetry cycle enzymes serial EKG ASA 81 QD
[2020-05-27] MEDS ORDERED: cefTRIAXone SODIUM 1 GM VIAL ONE (16:45)
[2020-05-27] MEDS ORDERED: DEXTROSE 5%-WATER - 50 ML IVPB ONE (16:45)
[2020-05-27] MEDS: ASPIRIN COATED 81 MG TABLET.EC PO SCH (17:28)
[2020-05-27] MEDS: CEFTRIAXONE 1 GM in DEXTROSE 5%-WATER - 50 ML IVPB SCH (17:29)
[2020-05-28] MEDS: CARBIDOPA/LEVODOPA 25/250 TABLET (FP) PO SCH ×6 (01:12→23:36)
[2020-05-28] MEDS: ENTACAPONE 200 MG TABLET PO SCH ×6 (01:12→23:35)
[2020-05-28] MEDS: PRAMIPEXOLE DIHYDROCHLORIDE 1.5 MG TABLET PO SCH ×3 (06:29→23:35)
[2020-05-28 07:40] LABS: BLOOD UREA NITROGEN 23.3 mg/dL (7-18); CALCIUM 8.2 mg/dL (8.5-10.1); CREATININE 0.7 mg/dL (0.55-1.3)
[2020-05-28] MEDS ORDERED: PT OWN MED DRAWER 7, Y5N ONE (08:55)
[2020-05-28] MEDS ORDERED: cefTRIAXone SODIUM 1 GM VIAL ONE (08:55)
[2020-05-28] MEDS ORDERED: DEXTROSE 5%-WATER - 50 ML IVPB ONE (08:55)
[2020-05-28] MEDS ORDERED: CEFTRIAXONE 1 GM in DEXTROSE 5%-WATER - 50 ML IVPB SCH (10:00)
[2020-05-28] MEDS: CEFTRIAXONE 1 GM in DEXTROSE 5%-WATER - 50 ML IVPB SCH (10:18)
[2020-05-28] MEDS: ASPIRIN COATED 81 MG TABLET.EC PO SCH (10:18)
[2020-05-28] MEDS: ENOXAPARIN NA (PORCINE) 40 MG/0.4 ML DISP.SYRIN SQ SCH (10:19)
--- NOTE | 2020-05-28 10:47 | CON.GU ---
Consult - History of Present Illness History of Present Illness: 84 yo male with Parkinsons, h/o BPH on flomax for years. In the past 2 weeks has been having problems with recurrent urinary retention despite doubling dose of Flomax. Sees Dr Sams at [facility]. Now admitted with retention and tachycardia. 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 Gastrointestinal: Yes: Constipation Psych: Yes: Anxiety Musculoskeletal: Yes: Chronic low back pain - Alcohol/Substance Use Hx Alcohol Use: No History of Substance Use: reports: None - Smoking History Smoking history: Never smoked Have you smoked in the past 12 months: No - Social History ADL: Family Assistance History of Recent Travel: No Home Medications - Allergies Allergies/Adverse Reactions: Allergies Allergy/AdvReac Type Severity Reaction Status Date / Time No Known Allergies Allergy Verified 05/25/20 18:40 - Home Medications Home Medications: Ambulatory Orders Carbidopa/Levodopa [Carbidopa-Levodopa 25-250 Tab] 1 each PO Q3H6XD 03/07/17 Entacapone [Comtan -] 200 mg PO Q3H6XD 03/07/17 Pramipexole Di-HCl [Pramipexole ER] 1.5 mg PO TID 03/07/17 Tamsulosin HCl 0.4 mg PO DAILY 03/09/17 Docusate Sodium [Colace -] 100 mg PO BID tab 03/10/17 Enoxaparin [Lovenox -] 40 mg SQ DAILY syr 03/10/17 oxyCODONE HCL [Roxicodone -] 5 mg PO Q4H PRN #0 tablet MDD 20mg 03/10/17 Family Medical History Family History: Unremarkable Physical Exam- Vital Signs: Vital Signs Temperature 98.1 F 05/27/20 23:00 Pulse Rate 80 05/28/20 06:15 Respiratory Rate 20 05/28/20 06:15 Blood Pressure 141/76 05/28/20 06:15 O2 Sat by Pulse Oximetry (%) 95 05/28/20 00:01 Renal/: Yes: Cooper Present (urine clear) Labs: CBC, BMP 05/27/20 08:10 05/28/20 05:22 Problem List - Problems (1) Acute urinary retention Assessment/Plan: Urinary retention may be secondary to the BPH vs worsening of Parkinsons, or combo of both. Urine culture now positive. Recommend to continue cooper for now and treat uti. Once uti has cleared will f/u as outpt with either myself or Dr Sams for urodynamic testing and cysto before making any additional treatment recommendations Code(s): R33.8 - OTHER RETENTION OF URINE
--- NOTE | 2020-05-28 11:27 | PN ---
Progress Note, LOFTSMAN/WOMAN - Note Progress Note: Selected Entries 05/27/20 05/27/20 05/27/20 10:34 15:03 16:50 Breakfast 75% Diet Tolerated Well Well Well Lunch 75% Supper 75% Pulse Rate Blood Pressure 05/28/20 06:15 Breakfast Diet Tolerated Lunch Supper Pulse Rate 80 Blood Pressure 141/76 Laboratory Tests 05/27/20 08:10 WBC 6.8 Nursing feels unsafe to be OOB for meals with choreic movements - Recommendations Diet Consistency: Regular (soft) Medication Administration: Whole with water Liquids: Thin Liquids
--- NOTE | 2020-05-28 12:34 | EKG ---
Test Reason : Blood Pressure : / mmHG Vent. Rate : 064 BPM Atrial Rate : 064 BPM P-R Int : 166 ms QRS Dur : 136 ms QT Int : 470 ms P-R-T Axes : 048 -19 183 degrees QTc Int : 484 ms NORMAL SINUS RHYTHM RIGHT BUNDLE BRANCH BLOCK ABNORMAL ECG WHEN COMPARED WITH ECG OF 25-MAY-2020 22:30, PREMATURE ATRIAL COMPLEXES ARE NO LONGER PRESENT VENT. RATE HAS DECREASED BY 31 BPM CRITERIA FOR SEPTAL INFARCT ARE NO LONGER PRESENT NONSPECIFIC T WAVE ABNORMALITY, WORSE IN INFERIOR LEADS NONSPECIFIC T WAVE ABNORMALITY NOW EVIDENT IN LATERAL LEADS Confirmed by ROSEANNE MATOS MD ([id number]) on 05/28/2020 12:34:40 PM Referred By: LISA CURRAN DR Confirmed By:ROSEANNE MATOS MD
--- NOTE | 2020-05-28 15:49 | PN ---
Progress Note (short form) - Note Progress Note: Laboratory Results - last 24 hr 05/27/20 05/28/20 16:15 05:22 Sodium 140 Potassium 4.0 Chloride 107 Carbon Dioxide 30 Anion Gap 3 L BUN 23.3 H Creatinine 0.7 Est GFR (CKD-EPI)AfAm 101.86 Est GFR (CKD-EPI)NonAf 87.88 Random Glucose 93 Calcium 8.2 L Creatine Kinase 125 Troponin I 0.08 H 0.05 Triglycerides 69 Cholesterol 123 Total LDL Cholesterol 58 HDL Cholesterol 58 Active Medications Aspirin (Ecotrin -) 81 mg PO DAILY [facility] Last Admin: 05/28/20 10:18 Dose: 81 mg Documented by: Carbidopa/Levodopa (Sinemet 25/250 -) 1 each PO Q4HPO [facility] Last Admin: 05/28/20 14:02 Dose: 1 each Documented by: Enoxaparin Sodium (Lovenox -) 40 mg SQ DAILY [facility] Last Admin: 05/28/20 10:19 Dose: 40 mg Documented by: Entacapone (Comtan -) 200 mg PO Q4HPO [facility] Last Admin: 05/28/20 14:04 Dose: 200 mg Documented by: Ceftriaxone Sodium 1 gm/ (Dextrose) 50 mls @ 200 mls/hr IVPB DAILY [facility]; Protocol Last Admin: 05/28/20 10:18 Dose: 200 mls/hr Documented by: Pramipexole Dihydrochloride (Mirapex -) 1.5 mg PO TID [facility] Last Admin: 05/28/20 14:02 Dose: 1.5 mg Documented by: Senna (Senna -) 2 tab PO HS PRN PRN Reason: CONSTIPATION CC: none `````````````````` skin--NL color eyes--midline lungs--clear heart--RR abd--benign ext--no edema of the LE's neuro--awake; good eye contact; but confused; he does know his family; and is able to follow commands; displays choreiform movements at times ``````````````````````````` Summ > Obstructive Uropathy--2nd prost enlargement; seen by Urlogy who recommend keeping in Petty and to f/u as OP > UTI--sensitive E. coli; on Rocephin > High troponins--ECho shows NL Ej Fx and motion; ? diastolic issues. Lipids WNL, F/u Trp were WNL; will Rx Low dose BB to offset periods of Tachycardia > PD--progressing; w/ failure to thrive; has little ability to carry out his ADLs and requires much help from his . PLAN: will get Neuro eval > anxiety dz--Rx low dose Mirtazapine; in order to help him sleep better ~~~~~~~~~~~~~~~~~~~~~~~~~~~~~~~~~~~~~ DR Harmon (spoke w/ son at the Bedside Problem List - Problems (1) Acute urinary retention Code(s): R33.8 - OTHER RETENTION OF URINE (2) Bacteriuria with pyuria Code(s): R82.71 - BACTERIURIA; R82.81 - PYURIA (3) Parkinson disease, symptomatic Code(s): G20 - PARKINSON'S DISEASE (4) Abnormal EKG Code(s): R94.31 - ABNORMAL ELECTROCARDIOGRAM [ECG] [EKG] (5) Weight loss, unintentional Code(s): R63.4 - ABNORMAL WEIGHT LOSS (6) Declining mobility Code(s): Z74.09 - OTHER REDUCED MOBILITY (7) Anxiety and depression Code(s): F41.9 - ANXIETY DISORDER, UNSPECIFIED; F32.9 - MAJOR DEPRESSIVE DISORDER, SINGLE EPISODE, UNSPECIFIED (8) Dehydration Code(s): E86.0 - DEHYDRATION
[2020-05-28] MEDS ORDERED: ALPRAZolam 0.25 MG TABLET PO ONE (21:00)
[2020-05-28] MEDS ORDERED: MIRTAZAPINE 15 MG TABLET (FP) PO SCH (22:00)
[2020-05-29] MEDS: ENTACAPONE 200 MG TABLET PO SCH ×5 (03:00→17:56)
[2020-05-29] MEDS: CARBIDOPA/LEVODOPA 25/250 TABLET (FP) PO SCH ×5 (03:00→17:55)
[2020-05-29] MEDS ORDERED: QUEtiapine FUMARATE 25 MG TABLET PO ONE (04:00)
--- NOTE | 2020-05-29 04:53 | PN ---
Progress Note, Physician Chief Complaint: Pt confused; aggressive. History of Present Illness: Mr. Collins is an 84yo man (b. [place]) with PMH Parkinson disease, ,HTN, diastolic LV dysfunction, RBBB, BPH, who presents with urinary retention. Patient was seen 2 weeks prior here for urinary retention and sent home with a Cooper in place. Since then, he has followed up with a urologist (Dr. Corea?). Today, the urologist removed the cooper @9am, for the patient to attempt urination. Pt was unable to urinate today and had increased suprapubic pressure/pain, told by urologist to come to ED. Reports hx of constipation, but states that he has been having regular BM. Aavshngo-dc-vlc states urine has appeared dark-yellow/orange, but denies any gross hematuria, clots, cloudiness to urine. Denies any f/c, chest pain, SOB, abdominal pain, n/v, loss of appetite. - Current Medication List Current Medications: Active Medications Aspirin (Ecotrin -) 81 mg PO DAILY [facility] Last Admin: 05/28/20 10:18 Dose: 81 mg Documented by: Carbidopa/Levodopa (Sinemet 25/250 -) 1 each PO Q4HPO [facility] Last Admin: 05/29/20 03:00 Dose: 1 each Documented by: Enoxaparin Sodium (Lovenox -) 40 mg SQ DAILY [facility] Last Admin: 05/28/20 10:19 Dose: 40 mg Documented by: Entacapone (Comtan -) 200 mg PO Q4HPO [facility] Last Admin: 05/29/20 03:00 Dose: 200 mg Documented by: Ceftriaxone Sodium 1 gm/ (Dextrose) 50 mls @ 200 mls/hr IVPB DAILY [facility]; Protocol Last Admin: 05/28/20 10:18 Dose: 200 mls/hr Documented by: Metoprolol Succinate (Toprol Xl -) 12.5 mg PO DAILY [facility] Mirtazapine (Remeron -) 7.5 mg PO HS [facility] Last Admin: 05/28/20 23:36 Dose: 7.5 mg Documented by: Pramipexole Dihydrochloride (Mirapex -) 1.5 mg PO TID [facility] Last Admin: 05/28/20 23:35 Dose: 1.5 mg Documented by: Senna (Senna -) 2 tab PO HS PRN PRN Reason: CONSTIPATION - Objective Vital Signs: Vital Signs Temperature 97.6 F 05/29/20 02:00 Pulse Rate 61 05/29/20 02:00 Respiratory Rate 20 05/29/20 02:00 Blood Pressure 135/67 05/29/20 02:00 O2 Sat by Pulse Oximetry (%) 96 05/28/20 21:00 Constitutional: Yes: Anxious, Thin Eyes: Yes: WNL HENT: Yes: WNL Cardiovascular: Yes: S1, S2 (split), S4 Respiratory: Yes: Regular Gastrointestinal: Yes: Soft Genitourinary: Yes: Anuria Musculoskeletal: Yes: Muscle Weakness Extremities: Yes: Cool Edema: No Peripheral Pulses WNL: Yes Integumentary: Yes: WNL Psychiatric: Yes: Other Labs: CBC, BMP 05/27/20 08:10 05/28/20 05:22 - ....Imaging Chest X-ray: Image Reviewed EKG: Image Reviewed Assessment/Plan Parkinson's disease mildly elevated TNIs No chest pain ECHO wnl EKG: septal "AL" no longer present (? lead placement precordially); +nonspecific T wave abnormalities HTN UTI anxiety/depression Plan; Transferred to telemetry; f/u EKG. TNI 0.11-->0.05 Continue ASA 81 QD On metoprolol ER. On Sinemet. On antibiotics. Maintain hydration.
[2020-05-29] MEDS: PRAMIPEXOLE DIHYDROCHLORIDE 1.5 MG TABLET PO SCH ×2 (06:41→15:30)
[2020-05-29 08:09] LABS: BLOOD UREA NITROGEN 32.6 mg/dL (7-18); CALCIUM 8.8 mg/dL (8.5-10.1); CREATININE 1.3 mg/dL (0.55-1.3); MAGNESIUM 2.4 mg/dL (1.8-2.4); POTASSIUM 4.1 mmol/L (3.5-5.1)
--- NOTE | 2020-05-29 08:20 | PN ---
Progress Note, Physician History of Present Illness: Pt is 84yo M with PMH Parkinson disease, BPH who presents with urinary retention. Patient was seen 2 weeks prior here for urinary retention and sent home with a Cooper in place. Since then, he has followed up with a urologist (Dr. Corea?). Today, the urologist removed the cooper @9am, for the patient to attempt urination. Pt was unable to urinate today and had increased suprapubic pressure/pain, told by urologist to come to ED. Reports hx of constipation, but states that he has been having regular BM. Yedpjzyj-oa-rkd states urine has appeared dark-yellow/orange, but denies any gross hematuria, clots, cloudiness to urine. Denies any f/c, chest pain, SOB, abdominal pain, n/v, loss of appetite. - Current Medication List Current Medications: Active Medications Aspirin (Ecotrin -) 81 mg PO DAILY [facility] Last Admin: 05/28/20 10:18 Dose: 81 mg Documented by: Carbidopa/Levodopa (Sinemet 25/250 -) 1 each PO Q4HPO [facility] Last Admin: 05/29/20 06:41 Dose: 1 each Documented by: Enoxaparin Sodium (Lovenox -) 40 mg SQ DAILY [facility] Last Admin: 05/28/20 10:19 Dose: 40 mg Documented by: Entacapone (Comtan -) 200 mg PO Q4HPO [facility] Last Admin: 05/29/20 06:42 Dose: 200 mg Documented by: Ceftriaxone Sodium 1 gm/ (Dextrose) 50 mls @ 200 mls/hr IVPB DAILY [facility]; Protocol Last Admin: 05/28/20 10:18 Dose: 200 mls/hr Documented by: Metoprolol Succinate (Toprol Xl -) 12.5 mg PO DAILY [facility] Mirtazapine (Remeron -) 7.5 mg PO HS [facility] Last Admin: 05/28/20 23:36 Dose: 7.5 mg Documented by: Pramipexole Dihydrochloride (Mirapex -) 1.5 mg PO TID [facility] Last Admin: 05/29/20 06:41 Dose: 1.5 mg Documented by: Senna (Senna -) 2 tab PO HS PRN PRN Reason: CONSTIPATION - Objective Vital Signs: Vital Signs Temperature 97.6 F 05/29/20 06:00 Pulse Rate 92 H 05/29/20 06:00 Respiratory Rate 20 05/29/20 06:00 Blood Pressure 146/93 05/29/20 06:00 O2 Sat by Pulse Oximetry (%) 96 05/28/20 21:00 Eyes: Yes: WNL, Conjunctiva Clear, EOM Intact HENT: Yes: WNL, Atraumatic, Normocephalic Neck: Yes: WNL, Supple, Trachea Midline Cardiovascular: Yes: WNL, Regular Rate and Rhythm Respiratory: Yes: WNL, Regular, CTA Bilaterally Gastrointestinal: Yes: WNL, Normal Bowel Sounds Genitourinary: Yes: WNL Musculoskeletal: Yes: WNL Extremities: Yes: WNL Edema: No Integumentary: Yes: WNL Neurological: Yes: Alert Labs: CBC, BMP 05/27/20 08:10 05/29/20 05:48 Problem List - Problems (1) Abnormal EKG Code(s): R94.31 - ABNORMAL ELECTROCARDIOGRAM [ECG] [EKG] (2) Acute urinary retention Code(s): R33.8 - OTHER RETENTION OF URINE (3) Anxiety and depression Code(s): F41.9 - ANXIETY DISORDER, UNSPECIFIED; F32.9 - MAJOR DEPRESSIVE DISORDER, SINGLE EPISODE, UNSPECIFIED (4) Bacteriuria with pyuria Code(s): R82.71 - BACTERIURIA; R82.81 - PYURIA (5) Declining mobility Code(s): Z74.09 - OTHER REDUCED MOBILITY (6) Dehydration Code(s): E86.0 - DEHYDRATION (7) Parkinson disease, symptomatic Code(s): G20 - PARKINSON'S DISEASE (8) Weight loss, unintentional Code(s): R63.4 - ABNORMAL WEIGHT LOSS (9) Hip fracture, left Code(s): S72.002A - FRACTURE OF UNSP PART OF NECK OF LEFT FEMUR, INIT Qualifiers: Encounter type: initial encounter Fracture type: closed Qualified Code(s): S72.002A - Fracture of unspecified part of neck of left femur, initial encounter for closed fracture (10) Urinary retention Code(s): R33.9 - RETENTION OF URINE, UNSPECIFIED Assessment/Plan Parkinson's disease mildly elevated TNIs No chest pain ECHO wnl EKG: septal "[place]" no longer present (? lead placement precordially); +nonspecific T wave abnormalities HTN UTI anxiety/depression Plan; Transferred to telemetry; f/u EKG. TNI 0.11-->0.05 Continue ASA 81 QD On metoprolol ER. On Sinemet. On antibiotics. Maintain hydration. Due to advance Parkinsons ds, poor mental status and inability to cooperate with advance testing [facility] D/c telemetry
--- NOTE | 2020-05-29 08:46 | CONSULT ---
Consult - text type - Consultation Consultation Note: Neurology - Primary Care Physician PCP: Mahad Harmon History Source: Medical Record Limitations to Obtaining History: Poor Historian, minimally verbal - Admission Chief Complaint: unable to void History of Present Illness: Covering for Dr. Lanier 84 yo M with PMH advanced Parkinson disease/mobility impaired, Hx BPH who presented with urinary retention. Patient was seen 2 weeks prior here for urinary retention and sent home with a Cooper in place. Since then, he has follow ed up with a urologist (Dr. Corea at [facility]) who has been straight catheterizing him when he stops voiding (with the intent of him regaining ability to void on his own). On day of admission, the urologist removed the cooper @9am, for the patient to attempt urination. Pt was unable to urinate and had increased suprapubic pressure/pain, told by urologist to go to ED. Denied any f/c, chest pain, SOB, abdominal pain, n/v, loss of appetite. Patient consulted for evaluation and management of Parkinson's disease and is currently on combination of 3 medications as listed below including Comtan, Sinemet, pramipexole. During my encounter, the patient did have psychomotor agitation and diffuse tremulousness. appears to have very advanced parkinson's disease. Typically deep brain stimulation is considered but he may even be too advanced for that at this point. At this point, medication addition would likely be palliative. Will try amantadine 100mg twice daily to see if any benefit, though low likelihood for success considering how advances presentation is. 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 Loss, Weakness Eyes: reports: No Symptoms HENT: reports: No Symptoms Neck: reports: No Symptoms Cardiovascular: reports: No Symptoms Respiratory: reports: No Symptoms Gastrointestinal: reports: No Symptoms Musculoskeletal: reports: No Symptoms Neurological: reports: No Symptoms Endocrine: reports: No Symptoms Hematology/Lymphatic: reports: No Symptoms Psychiatric: reports: Anxiety Home Medications - Allergies Allergies/Adverse Reactions: Allergies Allergy/AdvReac Type Severity Reaction Status Date / Time No Known Allergies Allergy Verified 05/25/20 18:40 - Home Medications Home Medications: Ambulatory Orders Carbidopa/Levodopa [Carbidopa-Levodopa 25-250 Tab] 1 each PO Q3H6XD 03/07/17 Entacapone [Comtan -] 200 mg PO Q3H6XD 03/07/17 Pramipexole Di-HCl [Pramipexole ER] 1.5 mg PO TID 03/07/17 Tamsulosin HCl 0.4 mg PO DAILY 03/09/17 Docusate Sodium [Colace -] 100 mg PO BID tab 03/10/17 Enoxaparin [Lovenox -] 40 mg SQ DAILY syr 03/10/17 oxyCODONE HCL [Roxicodone -] 5 mg PO Q4H PRN #0 tablet MDD 20mg 03/10/17 Active Medications Aspirin (Ecotrin -) 81 mg PO DAILY [facility] Last Admin: 05/28/20 10:18 Dose: 81 mg Documented by: Carbidopa/Levodopa (Sinemet 25/250 -) 1 each PO Q4HPO [facility] Last Admin: 05/29/20 06:41 Dose: 1 each Documented by: Enoxaparin Sodium (Lovenox -) 40 mg SQ DAILY [facility] Last Admin: 05/28/20 10:19 Dose: 40 mg Documented by: Entacapone (Comtan -) 200 mg PO Q4HPO [facility] Last Admin: 05/29/20 06:42 Dose: 200 mg Documented by: Ceftriaxone Sodium 1 gm/ (Dextrose) 50 mls @ 200 mls/hr IVPB DAILY [facility]; Protocol Last Admin: 05/28/20 10:18 Dose: 200 mls/hr Documented by: Metoprolol Succinate (Toprol Xl -) 12.5 mg PO DAILY [facility] Pramipexole Dihydrochloride (Mirapex -) 1.5 mg PO TID [facility] Last Admin: 05/29/20 06:41 Dose: 1.5 mg Documented by: Quetiapine Fumarate (Seroquel -) 25 mg PO TID [facility] Senna (Senna -) 2 tab PO HS PRN PRN Reason: CONSTIPATION Physical Examination Vital Signs: Vital Signs Period Temp Pulse Resp BP Sys/Bonner Pulse Ox Last 24 Hr 97.6 F-98.5 F 61-128 20-20 106-146/42-93 96-98 Gen: Awake, alert, responds to questions appropriately Card: RRR, nml S1,S2 Resp: Normal symmetric effort, lungs clear to auscultation Abdomen: Soft, nontender, bowel sounds active Head atraumatic and normocephalic CN: PERRL, EOMI intact, no apparent facial droop, no abnormalities in facial sensation, palate elevates, uvula and tongue midline Motor: Rapid movement, bilateral in upper and lower extremity tremors, strength appears to be intact Sensory: Intact to touch Reflexes: 2+ biceps, brachioradialis, patellar, achillies CBCD WBC 6.8 K/mm3 (4.0-10.0) 05/27/20 08:10 RBC 3.77 M/mm3 (4.00-5.60) L 05/27/20 08:10 Hgb 11.9 GM/dL (11.7-16.9) 05/27/20 08:10 Hct 35.0 % (35.4-49) L 05/27/20 08:10 MCV 92.8 fl (80-96) 05/27/20 08:10 MCHC 34.0 g/dl (32.0-35.9) 05/27/20 08:10 RDW 13.3 % (11.9-15.9) 05/27/20 08:10 Plt Count 368 K/MM3 (134-434) 05/27/20 08:10 MPV 6.3 fl (7.5-11.1) L 05/27/20 08:10 CMP Sodium 141 mmol/L (136-145) 05/29/20 05:48 Potassium 4.1 mmol/L (3.5-5.1) 05/29/20 05:48 Chloride 106 mmol/L (98-107) 05/29/20 05:48 Carbon Dioxide 28 mmol/L (21-32) 05/29/20 05:48 Anion Gap 8 MMOL/L (8-16) 05/29/20 05:48 BUN 32.6 mg/dL (7-18) H 05/29/20 05:48 Creatinine 1.3 mg/dL (0.55-1.3) 05/29/20 05:48 Random Glucose 157 mg/dL (74-106) H 05/29/20 05:48 Calcium 8.8 mg/dL (8.5-10.1) 05/29/20 05:48 Total Bilirubin 0.6 mg/dL (0.2-1) 05/25/20 19:45 AST 21 U/L (15-37) 05/25/20 19:45 ALT 10 U/L (13-61) L 05/25/20 19:45 Alkaline Phosphatase 102 U/L (45-117) 05/25/20 19:45 Total Protein 6.7 g/dl (6.4-8.2) 05/25/20 19:45 Albumin 3.4 g/dl (3.4-5.0) 05/25/20 19:45 CARDIAC ENZYMES Creatine Kinase 125 U/L (26-308) 05/27/20 16:15 Troponin I 0.05 ng/ml (0.00-0.05) 05/28/20 05:22 Assessment/Plan 84 yo M with PMH advanced Parkinson disease/mobility impaired, Hx BPH who presented with urinary retention. Patient was seen 2 weeks prior here for urinary retention and sent home with a Cooper in place. Since then, he has followed up with a urologist (Dr. Corea at [facility]) who has been straight catheterizing him when he stops voiding (with the intent of him regaining ability to void on his own). On day of admission, the urologist removed the cooper @9am, for the patient to attempt urination. Pt was unable to urinate and had increased suprapubic pressure/pain, told by urologist to go to ED. Denied any f/c, chest pain, SOB, abdominal pain, n/v, loss of appetite. Typically deep brain stimulation is considered but he may even be too advanced for that at this point. At this point, medication addition would likely be palliative. Will try amantadine 100mg twice daily to see if any benefit, though low likelihood for success considering how advances presentation is.
[2020-05-29] MEDS ORDERED: DEXTROSE 5%-WATER - 50 ML IVPB ONE (10:32)
[2020-05-29] MEDS ORDERED: cefTRIAXone SODIUM 1 GM VIAL ONE (10:32)
--- NOTE | 2020-05-29 10:57 | PN ---
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 Breakfast held Suggest NPO until improved, then trial of puree/nectar until back to baseline
[2020-05-29] MEDS ORDERED: AMANTADINE HCL 100 MG TABLET PO SCH (11:00)
[2020-05-29] MEDS: ASPIRIN COATED 81 MG TABLET.EC PO SCH ×2 (11:10→11:47)
[2020-05-29] MEDS: metoPROLOL SUCCINATE 25 MG TAB.SR.24H (FP) PO SCH ×2 (11:11→11:47)
[2020-05-29] MEDS: ENOXAPARIN NA (PORCINE) 40 MG/0.4 ML DISP.SYRIN SQ SCH (11:11)
[2020-05-29] MEDS: CEFTRIAXONE 1 GM in DEXTROSE 5%-WATER - 50 ML IVPB SCH (11:19)
[2020-05-29] MEDS ORDERED: SODIUM CHLORIDE 1,000 ML IV SCH ×2 (12:30→17:24)
--- NOTE | 2020-05-29 12:30 | PN ---
Progress Note (short form) - Note Progress Note: Active Medications Amantadine HCl (Symmetrel -) 100 mg PO DAILY [facility] Amantadine HCl (Symmetrel -) 100 mg PO BID [facility] Stop: 05/29/20 22:01 Last Admin: 05/29/20 11:47 Dose: Not Given Documented by: Aspirin (Ecotrin -) 81 mg PO DAILY [facility] Last Admin: 05/29/20 11:47 Dose: Not Given Documented by: Carbidopa/Levodopa (Sinemet 25/250 -) 1 each PO Q4HPO [facility] Last Admin: 05/29/20 11:47 Dose: Not Given Documented by: Enoxaparin Sodium (Lovenox -) 40 mg SQ DAILY [facility] Last Admin: 05/29/20 11:11 Dose: 40 mg Documented by: Entacapone (Comtan -) 200 mg PO Q4HPO [facility] Last Admin: 05/29/20 11:46 Dose: Not Given Documented by: Ceftriaxone Sodium 1 gm/ (Dextrose) 50 mls @ 200 mls/hr IVPB DAILY [facility]; Protocol Last Admin: 05/29/20 11:19 Dose: 200 mls/hr Documented by: Sodium Chloride (Normal Saline -) 1,000 mls @ 125 mls/hr IV ASDIR [facility] Metoprolol Succinate (Toprol Xl -) 12.5 mg PO DAILY [facility] Last Admin: 05/29/20 11:47 Dose: Not Given Documented by: Pramipexole Dihydrochloride (Mirapex -) 1.5 mg PO TID [facility] Last Admin: 05/29/20 06:41 Dose: 1.5 mg Documented by: Senna (Senna -) 2 tab PO HS PRN PRN Reason: CONSTIPATION Laboratory Results - last 24 hr 05/29/20 05:48 Sodium 141 Potassium 4.1 Chloride 106 Carbon Dioxide 28 Anion Gap 8 BUN 32.6 H Creatinine 1.3 Est GFR (CKD-EPI)AfAm 58.89 Est GFR (CKD-EPI)NonAf 50.81 Random Glucose 157 H Calcium 8.8 Magnesium 2.4 Vital Signs Temperature 98 F 05/29/20 14:05 Pulse Rate 81 05/29/20 14:05 Respiratory Rate 22 H 05/29/20 14:05 Blood Pressure 142/69 05/29/20 14:05 O2 Sat by Pulse Oximetry (%) 96 05/28/20 21:00 CC: none ````````````````````` heart--RR lungs--bilat BS neuro--severely confused and restless, agitated, at times combative ext--no edema --with Petty `````````````````````````` Summ >Obstructive uropathy--2nd enlarged prostate; will keep Petty as he was unable to void on his own today.Would need surg intervention but not stable at this time > UTI--E Coli; sensitive to Rocephin; will repeat culture > Hypotension--this Am; post voiding 3L of urine when Petty re-inserted; likely 2nd dehydration. PLAN: NS > PD--adv or end stage; seen bu Neuro but has little to be offered > delirium--full blown; not responded to PO benzodiazepam PO; will increase dose of Seroquel now that BP has improved > Hyperglycemia--A1c was WNL > fail thrive--taking PO poorly; level of confusion preclude adequate nutritional intake and ability to safely take his PD meds. Prognosis is poor; dsicussed with son & daughter. ```````````````````````````````````` Dr Harmon Problem List - Problems (1) Acute urinary retention Code(s): R33.8 - OTHER RETENTION OF URINE (2) Bacteriuria with pyuria Code(s): R82.71 - BACTERIURIA; R82.81 - PYURIA (3) Parkinson disease, symptomatic Code(s): G20 - PARKINSON'S DISEASE (4) Abnormal EKG Code(s): R94.31 - ABNORMAL ELECTROCARDIOGRAM [ECG] [EKG] (5) Weight loss, unintentional Code(s): R63.4 - ABNORMAL WEIGHT LOSS (6) Declining mobility Code(s): Z74.09 - OTHER REDUCED MOBILITY (7) Anxiety and depression Code(s): F41.9 - ANXIETY DISORDER, UNSPECIFIED; F32.9 - MAJOR DEPRESSIVE DISORDER, SINGLE EPISODE, UNSPECIFIED (8) Dehydration Code(s): E86.0 - DEHYDRATION
[2020-05-29] MEDS ORDERED: QUEtiapine FUMARATE 50 MG TABLET PO SCH (14:00)
[2020-05-29] MEDS ORDERED: PT OWN MED DRAWER 7, Y5N ONE (17:54)
[2020-05-29] MEDS: LORazepam 2 MG/ML SDV VIAL IVPUSH PRN (22:36)
[2020-05-30] MEDS: ENTACAPONE 200 MG TABLET PO SCH ×5 (06:59→22:36)
[2020-05-30] MEDS: CARBIDOPA/LEVODOPA 25/250 TABLET (FP) PO SCH ×5 (07:00→22:34)
[2020-05-30] MEDS ORDERED: cefTRIAXone SODIUM 1 GM VIAL ONE (08:41)
[2020-05-30] MEDS ORDERED: DEXTROSE 5%-WATER - 50 ML IVPB ONE (08:41)
[2020-05-30] MEDS: ASPIRIN COATED 81 MG TABLET.EC PO SCH (09:20)
[2020-05-30] MEDS: AMINO ACIDS 4.25%/D5W 1,000 ML IV SCH (09:20)
[2020-05-30] MEDS: metoPROLOL SUCCINATE 25 MG TAB.SR.24H (FP) PO SCH (09:20)
[2020-05-30] MEDS: ENOXAPARIN NA (PORCINE) 40 MG/0.4 ML DISP.SYRIN SQ SCH (09:20)
[2020-05-30] MEDS: CEFTRIAXONE 1 GM in DEXTROSE 5%-WATER - 50 ML IVPB SCH (09:21)
[2020-05-30] MEDS ORDERED: PT OWN MED DRAWER 7, Y5N ONE ×4 (09:23→22:33)
[2020-05-30] MEDS: AMANTADINE HCL 100 MG TABLET PO SCH (09:24)
[2020-05-30] MEDS: LORazepam 2 MG/ML SDV VIAL IVPUSH PRN (09:25)
--- NOTE | 2020-05-30 15:37 | PN ---
Progress Note (short form) - Note Progress Note: Active Medications Amantadine HCl (Symmetrel -) 100 mg PO DAILY [facility] Last Admin: 05/30/20 09:24 Dose: 100 mg Documented by: Aspirin (Ecotrin -) 81 mg PO DAILY [facility] Last Admin: 05/30/20 09:20 Dose: 81 mg Documented by: Carbidopa/Levodopa (Sinemet 25/250 -) 1 each PO Q4HPO [facility] Last Admin: 05/30/20 13:23 Dose: 1 each Documented by: Clonazepam (Clonazepam) 0.5 mg PO Q12H [facility] Enoxaparin Sodium (Lovenox -) 40 mg SQ DAILY [facility] Last Admin: 05/30/20 09:20 Dose: 40 mg Documented by: Entacapone (Comtan -) 200 mg PO Q4HPO [facility] Last Admin: 05/30/20 13:24 Dose: 200 mg Documented by: Ceftriaxone Sodium 1 gm/ (Dextrose) 50 mls @ 200 mls/hr IVPB DAILY [facility]; Protocol Last Admin: 05/30/20 09:21 Dose: 200 mls/hr Documented by: Amino Acids (Clinimix -) 1,000 mls @ 42 mls/hr IV Q24H [facility] Last Admin: 05/30/20 09:20 Dose: 42 mls/hr Documented by: Lorazepam (Ativan Injection -) 0.5 mg IVPUSH BID PRN PRN Reason: ANXIETY Last Admin: 05/30/20 09:25 Dose: 0.5 mg Documented by: Propranolol HCl (Inderal -) 10 mg PO BID [facility] Senna (Senna -) 2 tab PO HS PRN PRN Reason: CONSTIPATION Vital Signs Temperature 98 F 05/30/20 14:10 Pulse Rate 61 05/30/20 14:10 Respiratory Rate 20 05/30/20 14:10 Blood Pressure 128/70 05/30/20 14:10 O2 Sat by Pulse Oximetry (%) 96 05/30/20 08:22 CC: none `````````````````````` eyes--midline heart--RR lungs--bilat BS neuro--severely confused and restless, agitated, at times combative ext--no edema --with Petty `````````````````````````` Summ >Obstructive uropathy--2nd enlarged prostate; will keep Petty as he is unable to void without it. Would need surg intervention but not sufficiently stable at this time > UTI--E Coli; sensitive to Rocephin; will repeat culture > Hypotension--corrected; likely 2nd dehydration. > PD--adv or end stage; seen bu Neuro but has little to be offered; trial of amantadine; will also try Inderal at low dose to see if it can dampen tremors > delirium--improved; not responded to PO benzodiazepam, but attenuated with IV ativan which he got this AM. Less delirious, will try low dose Klonopin Q12H to manage his agitation & restlessness > feeding problem--on Clinimix for now; was able to eat soft foods that his brought; will rx on puree diet and hope to advance if remains stable enough > fail thrive--less capable of caring for himself in past few months 2nd to adv PD; Prognosis is poor; family aware. ```````````````````````````````````` Dr Harmon Problem List - Problems (1) Acute urinary retention Code(s): R33.8 - OTHER RETENTION OF URINE (2) Bacteriuria with pyuria Code(s): R82.71 - BACTERIURIA; R82.81 - PYURIA (3) Parkinson disease, symptomatic Code(s): G20 - PARKINSON'S DISEASE (4) Abnormal EKG Code(s): R94.31 - ABNORMAL ELECTROCARDIOGRAM [ECG] [EKG] (5) Weight loss, unintentional Code(s): R63.4 - ABNORMAL WEIGHT LOSS (6) Declining mobility Code(s): Z74.09 - OTHER REDUCED MOBILITY (7) Anxiety and depression Code(s): F41.9 - ANXIETY DISORDER, UNSPECIFIED; F32.9 - MAJOR DEPRESSIVE DISORDER, SINGLE EPISODE, UNSPECIFIED (8) Dehydration Code(s): E86.0 - DEHYDRATION
[2020-05-30] MEDS: clonazePAM 0.5 MG TABLET PO SCH (18:07)
[2020-05-31] MEDS: CARBIDOPA/LEVODOPA 25/250 TABLET (FP) PO SCH ×6 (02:17→23:55)
[2020-05-31] MEDS: ENTACAPONE 200 MG TABLET PO SCH ×6 (02:18→23:55)
[2020-05-31] MEDS ORDERED: PT OWN MED DRAWER 7, Y5N ONE ×5 (05:51→23:52)
[2020-05-31] MEDS: clonazePAM 0.5 MG TABLET PO SCH ×2 (05:54→17:31)
[2020-05-31] MEDS: AMINO ACIDS 4.25%/D5W 1,000 ML IV SCH ×2 (07:10→10:04)
[2020-05-31 08:48] LABS: HEMATOCRIT 32.7 % (35.4-49); HEMOGLOBIN 11.3 GM/dL (11.7-16.9); MCH 32.3 pg (25.7-33.7); MCHC 34.5 g/dl (32.0-35.9); MEAN CELL VOLUME 93.8 fl (80-96); MEAN PLT VOLUME 6.6 fl (7.5-11.1); PLATELET COUNT 309 K/MM3 (134-434); RBC 3.49 M/mm3 (4.00-5.60); WHITE BLOOD COUNT 5.7 K/mm3 (4.0-10.0)
[2020-05-31 09:10] LABS: ALBUMIN 2.9 g/dl (3.4-5.0); BILIRUBIN,TOTAL 0.6 mg/dL (0.2-1); BLOOD UREA NITROGEN 28.9 mg/dL (7-18); CALCIUM 8.5 mg/dL (8.5-10.1); CREATININE 0.7 mg/dL (0.55-1.3); POTASSIUM 4.4 mmol/L (3.5-5.1); TOT PROT 5.9 g/dl (6.4-8.2)
[2020-05-31] MEDS ORDERED: cefTRIAXone SODIUM 1 GM VIAL ONE (09:16)
[2020-05-31] MEDS ORDERED: DEXTROSE 5%-WATER - 50 ML IVPB ONE (09:17)
[2020-05-31] MEDS: CEFTRIAXONE 1 GM in DEXTROSE 5%-WATER - 50 ML IVPB SCH (09:20)
[2020-05-31] MEDS: ENOXAPARIN NA (PORCINE) 40 MG/0.4 ML DISP.SYRIN SQ SCH ×2 (09:21→09:35)
[2020-05-31] MEDS: ASPIRIN COATED 81 MG TABLET.EC PO SCH (09:21)
[2020-05-31] MEDS: AMANTADINE HCL 100 MG TABLET PO SCH (09:24)
--- NOTE | 2020-05-31 11:43 | PN ---
Progress Note (short form) - Note Progress Note: Neurology - Primary Care Physician PCP: Mahad Harmon History Source: Medical Record Limitations to Obtaining History: Poor Historian, minimally verbal - Admission Chief Complaint: unable to void History of Present Illness: Covering for Dr. Lanier 84 yo M with PMH advanced Parkinson disease/mobility impaired, Hx BPH who presented with urinary retention. Patient was seen 2 weeks prior here for urinary retention and sent home with a Cooper in place. Since then, he has followed up with a urologist (Dr. Corea at [facility]) who has been straight catheterizing him when he stops voiding (with the intent of him regaining ability to void on his own). On day of admission, the urologist removed the cooper @9am, for the patient to attempt urination. Pt was unable to urinate and had increased suprapubic pressure/pain, told by urologist to go to ED. Denied any f/c, chest pain, SOB, abdominal pain, n/v, loss of appetite. Patient consulted for evaluation and management of Parkinson's disease and is currently on combination of 3 medications as listed below including Comtan, Sinemet, pr amipexole. During my encounter, the patient did have psychomotor agitation and diffuse tremulousness. appears to have very advanced parkinson's disease. Typically deep brain stimulation is considered but he may even be too advanced for that at this point. At this point, medication addition would likely be palliative. Patient started on amantadine 100mg daily, verified with pharmacist that max dose of amantadine is 100mg based on renal function and creatinine clearance; patient does appear to have slight reduced psychomotor activity but remains severe in symptoms. Conversive this AM. Active Medications Amantadine HCl (Symmetrel -) 100 mg PO DAILY [facility] Last Admin: 05/31/20 09:24 Dose: 100 mg Documented by: Aspirin (Ecotrin -) 81 mg PO DAILY [facility] Last Admin: 05/31/20 09:21 Dose: 81 mg Documented by: Carbidopa/Levodopa (Sinemet 25/250 -) 1 each PO Q4HPO [facility] Last Admin: 05/31/20 09:21 Dose: 1 each Documented by: Clonazepam (Klonopin -) 0.5 mg PO BID@0600,1800 [facility] Last Admin: 05/31/20 05:54 Dose: 0.5 mg Documented by: Enoxaparin Sodium (Lovenox -) 40 mg SQ DAILY [facility] Last Admin: 05/31/20 09:35 Dose: 40 mg Documented by: Entacapone (Comtan -) 200 mg PO Q4HPO [facility] Last Admin: 05/31/20 09:23 Dose: 200 mg Documented by: Ceftriaxone Sodium 1 gm/ (Dextrose) 50 mls @ 200 mls/hr IVPB DAILY [facility]; Protocol Last Admin: 05/31/20 09:20 Dose: 200 mls/hr Documented by: Amino Acids (Clinimix -) 1,000 mls @ 42 mls/hr IV Q24H [facility] Last Admin: 05/31/20 10:04 Dose: Not Given Documented by: Lorazepam (Ativan Injection -) 0.5 mg IVPUSH BID PRN PRN Reason: ANXIETY Last Admin: 05/30/20 09:25 Dose: 0.5 mg Documented by: Propranolol HCl (Inderal -) 10 mg PO BID [facility] Last Admin: 05/31/20 09:22 Dose: 10 mg Documented by: Senna (Senna -) 2 tab PO HS PRN PRN Reason: CONSTIPATION Physical Examination Vital Signs: Vital Signs Period Temp Pulse Resp BP Sys/Bonner Pulse Ox Last 24 Hr 97.2 F-98 F 57-79 18-20 111-128/53-70 95-96 Gen: Awake, alert, responds to questions appropriately Card: RRR, nml S1,S2 Resp: Normal symmetric effort, lungs clear to auscultation Abdomen: Soft, nontender, bowel sounds active Head atraumatic and normocephalic CN: PERRL, EOMI intact, no apparent facial droop, no abnormalities in facial sensation, palate elevates, uvula and tongue midline Motor: Rapid movement, bilateral in upper and lower extremity tremors, strength appears to be intact Sensory: Intact to touch Reflexes: 2+ biceps, brachioradialis, patellar, achillies CBCD WBC 5.7 K/mm3 (4.0-10.0) 05/31/20 07:49 RBC 3.49 M/mm3 (4.00-5.60) L 05/31/20 07:49 Hgb 11.3 GM/dL (11.7-16.9) L 05/31/20 07:49 Hct 32.7 % (35.4-49) L 05/31/20 07:49 MCV 93.8 fl (80-96) 05/31/20 07:49 MCHC 34.5 g/dl (32.0-35.9) 05/31/20 07:49 RDW 13.0 % (11.9-15.9) 05/31/20 07:49 Plt Count 309 K/MM3 (134-434) 05/31/20 07:49 MPV 6.6 fl (7.5-11.1) L 05/31/20 07:49 CMP Sodium 143 mmol/L (136-145) 05/31/20 07:49 Potassium 4.4 mmol/L (3.5-5.1) 05/31/20 07:49 Chloride 109 mmol/L (98-107) H 05/31/20 07:49 Carbon Dioxide 32 mmol/L (21-32) 05/31/20 07:49 Anion Gap 2 MMOL/L (8-16) L 05/31/20 07:49 BUN 28.9 mg/dL (7-18) H 05/31/20 07:49 Creatinine 0.7 mg/dL (0.55-1.3) 05/31/20 07:49 Random Glucose 124 mg/dL (74-106) H 05/31/20 07:49 Calcium 8.5 mg/dL (8.5-10.1) 05/31/20 07:49 Total Bilirubin 0.6 mg/dL (0.2-1) 05/31/20 07:49 AST 27 U/L (15-37) 05/31/20 07:49 ALT 8 U/L (13-61) L 05/31/20 07:49 Alkaline Phosphatase 78 U/L (45-117) 05/31/20 07:49 Total Protein 5.9 g/dl (6.4-8.2) L 05/31/20 07:49 Albumin 2.9 g/dl (3.4-5.0) L 05/31/20 07:49 CARDIAC ENZYMES Creatine Kinase 125 U/L (26-308) 05/27/20 16:15 Troponin I 0.05 ng/ml (0.00-0.05) 05/28/20 05:22 Assessment/Plan 84 yo M with PMH advanced Parkinson disease/mobility impaired, Hx BPH who presented with urinary retention. Patient was seen 2 weeks prior here for urinary retention and sent home with a Cooper in place. Since then, he has followed up with a urologist (Dr. Corea at [facility]) who has been straight catheterizing him when he stops voiding (with the intent of him regaining ability to void on his own). On day of admission, the urologist removed the cooper @9am, for the patient to attempt urination. Pt was unable to urinate and had increased suprapubic pressure/pain, told by urologist to go to ED. Denied any f/c, chest pain, SOB, abdominal pain, n/v, loss of appetite. Typically deep brain stimulation is considered but he may even be too advanced for that at this point. At this point, medication addition would likely be palliative. Patient started on amantadine 100mg daily, verified with pharmacist that max dose of amantadine is 100mg based on renal function and creatinine clearance; patient does appear to have slight reduced psychomotor activity but remains severe in symptoms. Conversive this AM, continue medical optimization. At this time no further neurological recommendations, follow up with Dr. Lanier as outpatient.
--- NOTE | 2020-05-31 14:05 | PN ---
Progress Note (short form) - Note Progress Note: Active Medications Amantadine HCl (Symmetrel -) 100 mg PO DAILY [facility] Last Admin: 05/31/20 09:24 Dose: 100 mg Documented by: Amino Acids (Prosource No Carb Liquid Pkt) 30 ml PO BID@0800,1730 [facility] Aspirin (Ecotrin -) 81 mg PO DAILY [facility] Last Admin: 05/31/20 09:21 Dose: 81 mg Documented by: Carbidopa/Levodopa (Sinemet 25/250 -) 1 each PO Q4HPO [facility] Last Admin: 05/31/20 13:07 Dose: 1 each Documented by: Clonazepam (Klonopin -) 0.5 mg PO BID@0600,1800 [facility] Last Admin: 05/31/20 05:54 Dose: 0.5 mg Documented by: Enoxaparin Sodium (Lovenox -) 40 mg SQ DAILY [facility] Last Admin: 05/31/20 09:35 Dose: 40 mg Documented by: Entacapone (Comtan -) 200 mg PO Q4HPO [facility] Last Admin: 05/31/20 13:09 Dose: 200 mg Documented by: Ceftriaxone Sodium 1 gm/ (Dextrose) 50 mls @ 200 mls/hr IVPB DAILY [facility]; Protocol Last Admin: 05/31/20 09:20 Dose: 200 mls/hr Documented by: Amino Acids (Clinimix -) 1,000 mls @ 42 mls/hr IV Q24H [facility] Last Admin: 05/31/20 10:04 Dose: Not Given Documented by: Lorazepam (Ativan Injection -) 0.5 mg IVPUSH BID PRN PRN Reason: ANXIETY Last Admin: 05/30/20 09:25 Dose: 0.5 mg Documented by: Propranolol HCl (Inderal -) 10 mg PO BID [facility] Last Admin: 05/31/20 09:22 Dose: 10 mg Documented by: Senna (Senna -) 2 tab PO HS PRN PRN Reason: CONSTIPATION Laboratory Results - last 24 hr 05/31/20 05/31/20 07:49 07:49 WBC 5.7 RBC 3.49 L Hgb 11.3 L Hct 32.7 L MCV 93.8 MCH 32.3 MCHC 34.5 RDW 13.0 Plt Count 309 MPV 6.6 L Sodium 143 Potassium 4.4 Chloride 109 H Carbon Dioxide 32 Anion Gap 2 L BUN 28.9 H Creatinine 0.7 Est GFR (CKD-EPI)AfAm 101.86 Est GFR (CKD-EPI)NonAf 87.88 Random Glucose 124 H Calcium 8.5 Total Bilirubin 0.6 AST 27 ALT 8 L Alkaline Phosphatase 78 Total Protein 5.9 L Albumin 2.9 L Vital Signs Temperature 97.7 F 05/31/20 05:29 Pulse Rate 57 L 05/31/20 05:29 Respiratory Rate 18 05/31/20 05:29 Blood Pressure 111/53 L 05/31/20 05:29 O2 Sat by Pulse Oximetry (%) 95 05/31/20 05:29 Vital Signs Temp 97.7 F 05/31/20 05:29 Pulse 57 L 05/31/20 05:29 Resp 18 05/31/20 05:29 BP 111/53 L 05/31/20 05:29 Pulse Ox 95 05/31/20 05:29 Intake & Output 05/30/20 05/31/20 05/31/20 23:59 11:59 23:59 Intake Total 578 290 Output Total 1620 800 Balance -1042 -510 Intake: IV 528 290 Clinimix 528 290 IVPB 50 Output: Urine 1620 800 Petty 1620 800 Other: Voiding Method Indwelling Catheter Bowel Movement No No CC: none `````````````````````` eyes--midline heart--RR lungs--bilat BS neuro--confused and prone to uncontrolled movements; when aided; able to speak. ext--no edema --with Petty `````````````````````````` Summ >Obstructive uropathy--2nd enlarged prostate; will keep Petty as he is unable to void without it. Would need surg intervention but not sufficiently stable at this time > UTI--E Coli; sensitive to Rocephin; will repeat culture > Hypotension--corrected; likely 2nd dehydration. > PD--adv or end stage; Note appreciated by Neuro but has little to be offered; trial of amantadine in progress; will also try Inderal at low dose to see if it can dampen tremors; klonopin for agitated state; will still need restraints as he no longer has adequate bearings and prone to bringing harm to self > delirium--improved; on Klonopin now, Less delirious so far; but still requires restraints for stated reason > feeding problem--ate well on puree diet and hope to advance to soft diet; will stop clinimix > fail thrive--less capable of caring for himself in past few months 2nd to adv PD; Prognosis is poor; may benefit from PT; family aware. ```````````````````````````````````` Dr Harmon Problem List - Problems (1) Acute urinary retention Code(s): R33.8 - OTHER RETENTION OF URINE (2) Bacteriuria with pyuria Code(s): R82.71 - BACTERIURIA; R82.81 - PYURIA (3) Parkinson disease, symptomatic Code(s): G20 - PARKINSON'S DISEASE (4) Abnormal EKG Code(s): R94.31 - ABNORMAL ELECTROCARDIOGRAM [ECG] [EKG] (5) Weight loss, unintentional Code(s): R63.4 - ABNORMAL WEIGHT LOSS (6) Declining mobility Code(s): Z74.09 - OTHER REDUCED MOBILITY (7) Anxiety and depression Code(s): F41.9 - ANXIETY DISORDER, UNSPECIFIED; F32.9 - MAJOR DEPRESSIVE DISORDER, SINGLE EPISODE, UNSPECIFIED (8) Dehydration Code(s): E86.0 - DEHYDRATION
[2020-05-31] MEDS: AMINO ACIDS/PROTEIN HYDROLYS 30 ML LIQUID.PKT PO SCH (17:31)
[2020-05-31] MEDS: DEXTROSE 5%-0.45% SALINE 1,000 ML IV SCH (17:41)
[2020-05-31] MEDS: LORazepam 2 MG/ML SDV VIAL IVPUSH PRN (21:43)
[2020-06-01] MEDS ORDERED: PT OWN MED DRAWER 7, Y5N ONE ×2 (03:53→22:15)
[2020-06-01] MEDS: CARBIDOPA/LEVODOPA 25/250 TABLET (FP) PO SCH ×6 (03:56→22:21)
[2020-06-01] MEDS: ENTACAPONE 200 MG TABLET PO SCH ×6 (03:56→22:21)
[2020-06-01] MEDS ORDERED: LORazepam 2 MG/ML SDV VIAL IVPUSH PRN (04:30)
[2020-06-01] MEDS: clonazePAM 0.5 MG TABLET PO SCH (06:34)
[2020-06-01] MEDS: DEXTROSE 5%-0.45% SALINE 1,000 ML IV SCH ×2 (06:53→20:39)
[2020-06-01 09:26] LABS: BLOOD UREA NITROGEN 23.2 mg/dL (7-18); CALCIUM 8.8 mg/dL (8.5-10.1); CREATININE 0.7 mg/dL (0.55-1.3); POTASSIUM 4.1 mmol/L (3.5-5.1)
[2020-06-01] MEDS ORDERED: cefTRIAXone SODIUM 1 GM VIAL ONE (09:45)
[2020-06-01] MEDS ORDERED: DEXTROSE 5%-WATER - 50 ML IVPB ONE (09:45)
[2020-06-01] MEDS ORDERED: QUEtiapine FUMARATE 50 MG TABLET PO SCH ×2 (10:00→22:00)
[2020-06-01] MEDS: CEFTRIAXONE 1 GM in DEXTROSE 5%-WATER - 50 ML IVPB SCH (10:30)
[2020-06-01] MEDS: AMINO ACIDS/PROTEIN HYDROLYS 30 ML LIQUID.PKT PO SCH ×2 (10:30→17:07)
[2020-06-01] MEDS: ASPIRIN COATED 81 MG TABLET.EC PO SCH (10:30)
[2020-06-01] MEDS: ENOXAPARIN NA (PORCINE) 40 MG/0.4 ML DISP.SYRIN SQ SCH (10:31)
[2020-06-01] MEDS: AMANTADINE HCL 100 MG TABLET PO SCH (10:31)
--- NOTE | 2020-06-01 11:14 | PN ---
Progress Note (short form) - Note Progress Note: Current Medications Generic Name Dose Route Start Last Admin Trade Name Freq PRN Reason Stop Dose Admin Amantadine HCl 100 mg 05/30/20 10:00 06/01/20 10:31 Symmetrel - PO Not Given DAILY [facility] Amino Acids 30 ml 05/31/20 17:30 06/01/20 10:30 Prosource No Carb Liquid Pkt PO Not Given BID@0800,1730 [facility] Aspirin 81 mg 05/27/20 16:15 06/01/20 10:30 Ecotrin - PO Not Given DAILY [facility] Carbidopa/Levodopa 1 each 05/26/20 10:00 06/01/20 10:30 Sinemet 25/250 - PO Not Given Q4HPO NASIR Enoxaparin Sodium 40 mg 05/26/20 10:00 06/01/20 10:31 Lovenox - SQ 40 mg DAILY [facility]IR Administration Entacapone 200 mg 05/26/20 10:00 06/01/20 10:31 Comtan - PO Not Given Q4HPO NASIR Ceftriaxone Sodium 1 gm/ 50 mls @ 200 mls/hr 05/27/20 16:30 06/01/20 10:30 Dextrose IVPB 200 mls/hr DAILY [facility]IR Administration Protocol Dextrose/Sodium Chloride 1,000 mls @ 75 mls/hr 05/31/20 18:00 06/01/20 06:53 D5-1/2ns - IV 75 mls/hr ASDIR NASIR Administration Lorazepam 0.5 mg 05/29/20 17:23 05/31/20 21:43 Ativan Injection - IVPUSH 0.5 mg BID PRN Administration ANXIETY Lorazepam 0.5 mg 06/01/20 04:30 06/01/20 05:15 Ativan Injection - IVPUSH 06/02/20 04:29 0.5 mg ONCE PRN Administration AGITATION Propranolol HCl 10 mg 05/31/20 10:00 06/01/20 10:30 Inderal - PO Not Given BID NASIR Senna 2 tab 05/26/20 20:20 Senna - PO HS PRN CONSTIPATION Discontinued Medications Generic Name Dose Route Start Last Admin Trade Name Freq PRN Reason Stop Dose Admin Alprazolam 0.5 mg 05/25/20 22:46 Xanax - PO Q12H PRN ANXIETY Alprazolam 0.25 mg 05/28/20 21:00 05/28/20 23:34 Xanax - PO 05/28/20 21:01 0.25 mg ONCE ONE Administration Amantadine HCl 100 mg 05/29/20 11:00 05/29/20 11:47 Symmetrel - PO 05/29/20 22:01 Not Given BID NASIR Bisacodyl 10 mg 05/26/20 20:20 05/26/20 21:49 Dulcolax Suppository - CT 05/26/20 20:21 Not Given ONCE ONE Carbidopa/Levodopa 1 each 05/25/20 23:00 05/26/20 02:15 Sinemet 25/250 - PO 1 each Q4H NASIR Administration Clonazepam 0.5 mg 05/30/20 18:00 06/01/20 06:34 Klonopin - PO Not Given BID@0600,1800 [facility] Entacapone 200 mg 05/25/20 22:57 05/25/20 23:37 Comtan - PO 05/25/20 22:58 200 mg Q4H STA Administration Escitalopram Oxalate 5 mg 05/27/20 10:00 05/27/20 10:44 Lexapro - PO 05/27/20 10:01 5 mg ONCE ONE Administration Ceftriaxone Sodium 1 gm/ 50 mls @ 200 mls/hr 05/25/20 21:03 05/25/20 21:25 Dextrose IVPB 05/25/20 21:17 200 mls/hr ONCE ONE Administration Protocol Ceftriaxone Sodium 1 gm/ 50 mls @ 100 mls/hr 05/25/20 22:53 Dextrose IVPB 05/25/20 23:22 ONCE ONE Ceftriaxone Sodium 1 gm/ 50 mls @ 100 mls/hr 05/26/20 20:00 05/26/20 21:05 Dextrose IVPB 05/26/20 20:29 100 mls/hr DAILY ONE Administration Sodium Chloride 1,000 mls @ 75 mls/hr 05/25/20 23:15 05/26/20 02:15 1/2 Normal Saline IV 75 mls/hr ASDIR NASIR Administration Sodium Chloride 1,000 mls @ 42 mls/hr 05/27/20 00:19 05/27/20 00:51 1/2 Normal Saline IV 42 mls/hr ASDIR NASIR Administration Ceftriaxone Sodium 1 gm/ 100 mls @ 200 mls/hr 05/27/20 15:30 05/27/20 18:18 Dextrose IVPB Not Given DAILY [facility] Ceftriaxone Sodium 1 gm/ 50 mls @ 200 mls/hr 05/28/20 10:00 Dextrose IVPB DAILY [facility] Protocol Sodium Chloride 1,000 mls @ 50 mls/hr 05/27/20 15:30 05/27/20 17:29 Normal Saline - IV 05/28/20 15:23 50 mls/hr ASDIR NASIR Administration Sodium Chloride 1,000 mls @ 125 mls/hr 05/29/20 12:30 05/29/20 12:41 Normal Saline - IV 125 mls/hr ASDIR NASIR Administration Sodium Chloride 1,000 mls @ 75 mls/hr 05/29/20 17:24 05/29/20 17:56 Normal Saline - IV 05/30/20 10:00 75 mls/hr ASDIR NASIR Administration Amino Acids 1,000 mls @ 42 mls/hr 05/30/20 10:00 05/31/20 10:04 Clinimix - IV 05/31/20 18:00 Not Given Q24H NASIR Metoprolol Succinate 12.5 mg 05/29/20 10:00 05/30/20 09:20 Toprol Xl - PO 12.5 mg DAILY [facility] Administration Mirtazapine 7.5 mg 05/28/20 22:00 05/28/20 23:36 Remeron - PO 7.5 mg HS NASIR Administration Polyethylene Glycol 17 gm 05/26/20 18:48 Miralax (For Daily Use) - PO DAILY PRN CONSTIPATION Pramipexole Dihydrochloride 1.5 mg 05/25/20 23:00 05/29/20 15:30 Mirapex - PO Not Given TID NASIR Propranolol HCl 10 mg 05/30/20 22:00 Inderal - PO BID NASIR Quetiapine Fumarate 25 mg 05/29/20 04:00 05/29/20 04:00 Seroquel - PO 05/29/20 04:01 25 mg ONCE ONE Administration Quetiapine Fumarate 25 mg 05/29/20 14:00 Seroquel - PO TID NASIR Quetiapine Fumarate 50 mg 06/01/20 10:00 Seroquel - PO BID NASIR Quetiapine Fumarate 50 mg 06/01/20 22:00 Seroquel - PO HS NASIR Laboratory Results - last 24 hr 06/01/20 07:40 Sodium 142 Potassium 4.1 Chloride 106 Carbon Dioxide 33 H Anion Gap 2 L BUN 23.2 H Creatinine 0.7 Est GFR (CKD-EPI)AfAm 101.86 Est GFR (CKD-EPI)NonAf 87.88 Random Glucose 113 H Calcium 8.8 Vital Signs Temperature 98.0 F 06/01/20 09:09 Pulse Rate 67 06/01/20 09:09 Respiratory Rate 18 06/01/20 09:09 Blood Pressure 136/85 06/01/20 09:09 O2 Sat by Pulse Oximetry (%) 97 06/01/20 09:09 CC: None `````````````````` skin--no lesions appreciated eyes--midline heart --RR abd--NT, soft neuro--awake, confused, verbal `````````````````````````````` Summ > Delirium--recurrent, cause unclear; org Vs Functional, bacame combative and agitated overnight; was given IV Ativan with Temp effect; not eating or taking his meds. PLAN: Psych consult for behavior issues > PD--advanced; unable to care for himself anymore > Obst uropathy--requires Petty; otheriwise cannot void > UTI--E coli; await repeat c&S ~~~~~~~~~~~~~~~~~~~~~~ D/w daughter ``````````````````````` Dr Harmon Problem List - Problems (1) Acute urinary retention Code(s): R33.8 - OTHER RETENTION OF URINE (2) Bacteriuria with pyuria Code(s): R82.71 - BACTERIURIA; R82.81 - PYURIA (3) Parkinson disease, symptomatic Code(s): G20 - PARKINSON'S DISEASE (4) Abnormal EKG Code(s): R94.31 - ABNORMAL ELECTROCARDIOGRAM [ECG] [EKG] (5) Weight loss, unintentional Code(s): R63.4 - ABNORMAL WEIGHT LOSS (6) Declining mobility Code(s): Z74.09 - OTHER REDUCED MOBILITY (7) Anxiety and depression Code(s): F41.9 - ANXIETY DISORDER, UNSPECIFIED; F32.9 - MAJOR DEPRESSIVE DISORDER, SINGLE EPISODE, UNSPECIFIED (8) Dehydration Code(s): E86.0 - DEHYDRATION
--- NOTE | 2020-06-01 11:35 | PN ---
Progress Note, [facility] - Note Progress Note: Selected Entries 05/29/20 05/29/20 05/29/20 10:53 14:34 18:00 Breakfast 50% Diet Tolerated Lunch 25% Supper 25% 05/30/20 05/30/20 05/31/20 08:17 13:58 10:00 Breakfast NPO 100% Diet Tolerated Well Lunch NPO 100% Supper 06/01/20 10:16 Breakfast 0 Diet Tolerated Lunch Supper Laboratory Tests 05/31/20 07:49 WBC 5.7 Placed on Puree/nectar on 05/30, then advanced 05/31 to soft diet/nectar liquids More verbal No choreic movements today (PD/other medication changes). Confused,hallucinated this am but calm, verbal for me, son present. Seemed to tolerated thin liquid trials overtly. Silent aspiration can not be r/o at bedside Suggest- trial of thin liquid If cough, congestion, fever, MBS to further assess swallowing function
--- NOTE | 2020-06-01 15:39 | CON.PSY ---
Psychiatry Consult Chief Complaint: 84 year old male with 17 year history of Parkinsons Disease admiyyed with UTI and Urinary retention. Patient seen for acute agitation. Symptoms: reports: Memory Impairment, Impulsivity, Hallucinations - Previous Psychiatric Treatment Outpatient: None Inpatient: None - Previous Substance Abuse Treatment Outpatient: None Inpatient: None - Current Medications Current Medications: Active Medications Amantadine HCl (Symmetrel -) 100 mg PO DAILY [facility] Last Admin: 06/01/20 10:31 Dose: Not Given Documented by: Amino Acids (Prosource No Carb Liquid Pkt) 30 ml PO BID@0800,1730 [facility] Last Admin: 06/01/20 10:30 Dose: Not Given Documented by: Aspirin (Ecotrin -) 81 mg PO DAILY [facility] Last Admin: 06/01/20 10:30 Dose: Not Given Documented by: Carbidopa/Levodopa (Sinemet 25/250 -) 1 each PO Q4HPO [facility] Last Admin: 06/01/20 14:32 Dose: 1 each Documented by: Enoxaparin Sodium (Lovenox -) 40 mg SQ DAILY [facility] Last Admin: 06/01/20 10:31 Dose: 40 mg Documented by: Entacapone (Comtan -) 200 mg PO Q4HPO [facility] Last Admin: 06/01/20 14:33 Dose: 200 mg Documented by: Ceftriaxone Sodium 1 gm/ (Dextrose) 50 mls @ 200 mls/hr IVPB DAILY [facility]; Protocol Last Admin: 06/01/20 10:30 Dose: 200 mls/hr Documented by: Dextrose/Sodium Chloride (D5-1/2ns -) 1,000 mls @ 75 mls/hr IV ASDIR [facility] Last Admin: 06/01/20 06:53 Dose: 75 mls/hr Documented by: Lorazepam (Ativan Injection -) 0.5 mg IVPUSH BID PRN PRN Reason: ANXIETY Last Admin: 05/31/20 21:43 Dose: 0.5 mg Documented by: Lorazepam (Ativan Injection -) 0.5 mg IVPUSH ONCE PRN PRN Reason: AGITATION Stop: 06/02/20 04:29 Last Admin: 06/01/20 05:15 Dose: 0.5 mg Documented by: Olanzapine (Zyprexa -) 5 mg PO [facility] Propranolol HCl (Inderal -) 10 mg PO BID [facility] Last Admin: 06/01/20 10:30 Dose: Not Given Documented by: Ariel (Senna -) 2 tab PO HS PRN PRN Reason: CONSTIPATION - Allergies Allergies: Allergies Allergy/AdvReac Type Severity Reaction Status Date / Time No Known Allergies Allergy Verified 05/25/20 18:40 - Current Living Status Usual Living Arrangement: With Spouse - Current Mental Status Evaluation Appearance: Well Groomed Attitude: Cooperative - Affect Affect: Constrictive Appropriateness: Not Appropriate - Mood Mood: Irritable - Speech/Language Expressive: Delayed - Psychomotor Activity Psychomotor Activity: Agitated - Thought Process Thought Process: Circumstantial - Thought Content Type: Visual Delusions: Absent - Self Perception Self Perception: No Impairment - Cognition Attention: Diminished Memory, Short Term: 2/3 Memory, Remote with Promptin/3 - Concentration Serial Sevens Intact: No Simple Calculations Intact: No - Abstraction Proverb Interpretation: Impaired Judgement: Minimally Impaired - Insight Insight: Impaired - Impulse Control Impulse Control: Moderately Impaired - Suicidal Ideation Suicidal Ideation: No - Homicidal Ideation Homicidal Ideation: No Assessment/Plan 10 Zyprexa5 mg po0 hs for aggressive Behaviour.
--- NOTE | 2020-06-01 17:00 | PN ---
Progress Note, Physician History of Present Illness: Pt is 84yo M with PMH Parkinson disease, BPH who presents with urinary retention. Patient was seen 2 weeks prior here for urinary retention and sent home with a Cooper in place. Since then, he has followed up with a urologist (Dr. Corea?). Today, the urologist removed the cooper @9am, for the patient to attempt urination. Pt was unable to urinate today and had increased suprapubic pressure/pain, told by urologist to come to ED. Reports hx of constipation, but states that he has been having regular BM. Knrfdowy-[id number] states urine has appeared dark-yellow/orange, but denies any gross hematuria, clots, cloudiness to urine. Denies any f/c, chest pain, SOB, abdominal pain, n/v, loss of appetite. - Current Medication List Current Medications: Active Medications Amantadine HCl (Symmetrel -) [address] [facility] Last Admin: 06/01/20 10:31 Dose: Not Given Documented by: Amino Acids (Prosource No Carb Liquid Pkt) 30 ml PO BID@0800,1730 [facility] Last Admin: 06/01/20 10:30 Dose: Not Given Documented by: Aspirin (Ecotrin -) [address] [facility] Last Admin: 06/01/20 10:30 Dose: Not Given Documented by: Carbidopa/Levodopa (Sinemet 25/250 -) [address] [facility] Last Admin: 06/01/20 14:32 Dose: 1 each Documented by: Enoxaparin Sodium (Lovenox -) [address] [facility] Last Admin: 06/01/20 10:31 Dose: 40 mg Documented by: Entacapone (Comtan -) [address] [facility] Last Admin: 06/01/20 14:33 Dose: 200 mg Documented by: Ceftriaxone Sodium 1 gm/ (Dextrose) 50 mls @ 200 mls/hr IVPB DAILY [facility]; Protocol Last Admin: 06/01/20 10:30 Dose: 200 mls/hr Documented by: Dextrose/Sodium Chloride (D5-1/2ns -) 1,000 mls @ 75 mls/hr IV ASDIR [facility] Last Admin: 06/01/20 06:53 Dose: 75 mls/hr Documented by: Lorazepam (Ativan Injection -) 0.5 mg IVPUSH BID PRN PRN Reason: ANXIETY Last Admin: 05/31/20 21:43 Dose: 0.5 mg Documented by: Lorazepam (Ativan Injection -) 0.5 mg IVPUSH ONCE PRN PRN Reason: AGITATION Stop: 06/02/20 04:29 Last Admin: 06/01/20 05:15 Dose: 0.5 mg Documented by: Olanzapine (Zyprexa -) 5 mg PO HS [facility] Propranolol HCl (Inderal -) 10 mg PO BID [facility] Last Admin: 06/01/20 10:30 Dose: Not Given Documented by: Senna (Senna -) 2 tab PO HS PRN PRN Reason: CONSTIPATION - Objective Vital Signs: Vital Signs Temperature 98.2 F 06/01/20 14:57 Pulse Rate 92 H 06/01/20 14:57 Respiratory Rate 18 06/01/20 14:57 Blood Pressure 99/51 L 06/01/20 14:57 O2 Sat by Pulse Oximetry (%) 97 06/01/20 09:10 Eyes: Yes: WNL, Conjunctiva Clear, EOM Intact HENT: Yes: WNL, Atraumatic, Normocephalic Neck: Yes: WNL, Supple, Trachea Midline Cardiovascular: Yes: WNL, Regular Rate and Rhythm Respiratory: Yes: WNL, Regular, CTA Bilaterally Gastrointestinal: Yes: WNL, Normal Bowel Sounds Genitourinary: Yes: WNL Musculoskeletal: Yes: WNL Extremities: Yes: WNL Edema: No Integumentary: Yes: WNL Labs: CBC, BMP 05/31/20 07:49 06/01/20 07:40 Problem List - Problems (1) Abnormal EKG Code(s): R94.31 - ABNORMAL ELECTROCARDIOGRAM [ECG] [EKG] (2) Acute urinary retention Code(s): R33.8 - OTHER RETENTION OF URINE (3) Anxiety and depression Code(s): F41.9 - ANXIETY DISORDER, UNSPECIFIED; F32.9 - MAJOR DEPRESSIVE DISORDER, SINGLE EPISODE, UNSPECIFIED (4) Bacteriuria with pyuria Code(s): R82.71 - BACTERIURIA; R82.81 - PYURIA (5) Declining mobility Code(s): Z74.09 - OTHER REDUCED MOBILITY (6) Dehydration Code(s): E86.0 - DEHYDRATION (7) Parkinson disease, symptomatic Code(s): G20 - PARKINSON'S DISEASE (8) Weight loss, unintentional Code(s): R63.4 - ABNORMAL WEIGHT LOSS (9) Hip fracture, left Code(s): S72.002A - FRACTURE OF UNSP PART OF NECK OF LEFT FEMUR, INIT Qualifiers: Encounter type: initial encounter Fracture type: closed Qualified Code(s): S72.002A - Fracture of unspecified part of neck of left femur, initial encounter for closed fracture (10) Urinary retention Code(s): R33.9 - RETENTION OF URINE, UNSPECIFIED Assessment/Plan Parkinson's disease mildly elevated TNIs No chest pain ECHO wnl EKG: septal "WI" no longer present (? lead placement precordially); +nonspecific T wave abnormalities HTN UTI anxiety/depression Plan; Transferred to telemetry; f/u EKG. TNI 0.11-->0.05 Continue ASA 81 QD On metoprolol ER. On Sinemet. On antibiotics. Maintain hydration. Due to advance Parkinsons ds, poor mental status and inability to cooperate with advance testing I would recommend medical Rx. d/w son at the bedside who agrees with the plan
[2020-06-01] MEDS ORDERED: OLANZapine 5 MG TABLET PO SCH (22:00)
[2020-06-02] MEDS: LORazepam 2 MG/ML SDV VIAL IVPUSH PRN (00:08)
[2020-06-02] MEDS: CARBIDOPA/LEVODOPA 25/250 TABLET (FP) PO SCH ×6 (03:38→22:18)
[2020-06-02] MEDS: ENTACAPONE 200 MG TABLET PO SCH ×6 (03:38→22:18)
[2020-06-02] MEDS ORDERED: PT OWN MED DRAWER 7, Y5N ONE ×2 (06:44→09:19)
[2020-06-02] MEDS ORDERED: cefTRIAXone SODIUM 1 GM VIAL ONE (09:19)
[2020-06-02] MEDS ORDERED: DEXTROSE 5%-WATER - 50 ML IVPB ONE (09:20)
[2020-06-02] MEDS: CEFTRIAXONE 1 GM in DEXTROSE 5%-WATER - 50 ML IVPB SCH (09:22)
[2020-06-02] MEDS: ASPIRIN COATED 81 MG TABLET.EC PO SCH (09:22)
[2020-06-02] MEDS: ENOXAPARIN NA (PORCINE) 40 MG/0.4 ML DISP.SYRIN SQ SCH (09:23)
[2020-06-02] MEDS: AMANTADINE HCL 100 MG TABLET PO SCH (09:24)
[2020-06-02] MEDS: DEXTROSE 5%-0.45% SALINE 1,000 ML IV SCH ×2 (09:32→23:25)
[2020-06-02] MEDS ORDERED: OLANZapine 7.5 MG TABLET PO SCH (09:53)
--- NOTE | 2020-06-02 11:00 | PN ---
Progress Note (short form) - Note Progress Note: PULMONARY CONSULTATION DICTATED 06/02/20 IMP COPD STABLE PARKINSONS URINARY RETENTION BPH PLAN O2 NEEDED INHALED BRONCHODILATORS NEEDED MONITOR LYTES FURTHER W/U PER UROLOGY Problem List - Problems (1) COPD (chronic obstructive pulmonary disease) Code(s): J44.9 - CHRONIC OBSTRUCTIVE PULMONARY DISEASE, UNSPECIFIED (2) Acute urinary retention Code(s): R33.8 - OTHER RETENTION OF URINE (3) Declining mobility Code(s): Z74.09 - OTHER REDUCED MOBILITY (4) Parkinson disease, symptomatic Code(s): G20 - PARKINSON'S DISEASE (5) Weight loss, unintentional Code(s): R63.4 - ABNORMAL WEIGHT LOSS (6) Urinary retention Code(s): R33.9 - RETENTION OF URINE, UNSPECIFIED
--- NOTE | 2020-06-02 11:22 | OP ---
Operative Note - Note: Operative Date: 06/02/20 Pre-Operative Diagnosis: Stress incontinence Operation: Mid urethral sling placement Findings: BRIDGER Post-Operative Diagnosis: Same as Pre-op Surgeon: Ace Smith MD. Anesthesia: MAC Estimated Blood Loss (mls): 10
--- NOTE | 2020-06-02 11:22 | PN ---
Progress Note, [facility] - Note Progress Note: Selected Entries 06/01/20 06/01/20 06/01/20 06:00 09:09 09:10 Breakfast Diet Tolerated Lunch Supper Respiratory 18 18 Rate Respiratory Normal Depth Respiratory Non-Labored Effort O2 Sat by Pulse 97 97 97 Oximetry (%) 06/01/20 06/01/20 06/01/20 14:57 18:35 21:00 Breakfast Diet Tolerated Well Lunch 50% Supper Respiratory 18 18 18 Rate Respiratory Normal Depth Respiratory Non-Labored Effort O2 Sat by Pulse 97 97 Oximetry (%) 06/01/20 06/01/20 06/02/20 22:00 22:57 10:55 Breakfast 50% Diet Tolerated Well Well Lunch Supper 50% Respiratory 18 Rate Respiratory Depth Respiratory Effort O2 Sat by Pulse 97 Oximetry (%) Laboratory Tests 05/31/20 07:49 WBC 5.7 Suggested trial of thin liquid, however, nursing reported brief cough response. Continue nectar thick liquid for now
[2020-06-02] MEDS: AMINO ACIDS/PROTEIN HYDROLYS 30 ML LIQUID.PKT PO SCH ×2 (14:17→18:14)
--- NOTE | 2020-06-02 15:21 | PN ---
Progress Note, Physician History of Present Illness: Pt is 84yo M with PMH Parkinson disease, BPH who presents with urinary retention. Patient was seen 2 weeks prior here for urinary retention and sent home with a Cooper in place. Since then, he has followed up with a urologist (Dr. Corea?). Today, the urologist removed the cooper @9am, for the patient to attempt urination. Pt was unable to urinate today and had increased suprapubic pressure/pain, told by urologist to come to ED. Reports hx of constipation, but states that he has been having regular BM. [id number] states urine has appeared dark-yellow/orange, but denies any gross hematuria, clots, cloudiness to urine. Denies any f/c, chest pain, SOB, abdominal pain, n/v, loss of appetite. - Current Medication List Current Medications: Active Medications Amantadine HCl (Symmetrel -) 100 mg PO DAILY [facility] Last Admin: 06/02/20 09:24 Dose: 100 mg Documented by: Amino Acids (Prosource No Carb Liquid Pkt) 30 ml PO BID@0800,1730 [facility] Last Admin: 06/02/20 14:17 Dose: Not Given Documented by: Aspirin (Ecotrin -) 81 mg PO DAILY [facility] Last Admin: 06/02/20 09:22 Dose: 81 mg Documented by: Carbidopa/Levodopa (Sinemet 25/250 -) 1 each PO Q4HPO [facility] Last Admin: 06/02/20 14:04 Dose: 1 each Documented by: Enoxaparin Sodium (Lovenox -) 40 mg SQ DAILY [facility] Last Admin: 06/02/20 09:23 Dose: 40 mg Documented by: Entacapone (Comtan -) 200 mg PO Q4HPO [facility] Last Admin: 06/02/20 14:04 Dose: 200 mg Documented by: Dextrose/Sodium Chloride (D5-1/2ns -) 1,000 mls @ 75 mls/hr IV ASDIR [facility] Last Admin: 06/02/20 09:32 Dose: 75 mls/hr Documented by: Lorazepam (Ativan Injection -) 0.5 mg IVPUSH BID PRN PRN Reason: ANXIETY Last Admin: 06/02/20 00:08 Dose: 0.5 mg Documented by: Olanzapine (Zyprexa -) 7.5 mg PO HS [facility] Olanzapine 2.5 mg/ Olanzapine (5 mg) 7.5 mg PO HS [facility] Propranolol HCl (Inderal -) 10 mg PO TID [facility] Last Admin: 06/02/20 14:06 Dose: 10 mg Documented by: Ariel (Senna -) 2 tab PO HS PRN PRN Reason: CONSTIPATION - Objective Vital Signs: Vital Signs Temperature 97.6 F 06/02/20 14:46 Pulse Rate 77 06/02/20 14:46 Respiratory Rate 18 06/02/20 14:46 Blood Pressure 123/89 06/02/20 14:46 O2 Sat by Pulse Oximetry (%) 99 06/02/20 09:25 Eyes: Yes: WNL, Conjunctiva Clear, EOM Intact HENT: Yes: WNL, Atraumatic, Normocephalic Neck: Yes: WNL, Supple, Trachea Midline Cardiovascular: Yes: WNL, Regular Rate and Rhythm Respiratory: Yes: WNL, Regular, CTA Bilaterally Gastrointestinal: Yes: WNL, Normal Bowel Sounds Genitourinary: Yes: WNL Musculoskeletal: Yes: WNL Extremities: Yes: WNL Edema: No Integumentary: Yes: WNL Labs: CBC, BMP 05/31/20 07:49 06/01/20 07:40 Problem List - Problems (1) Abnormal EKG Code(s): R94.31 - ABNORMAL ELECTROCARDIOGRAM [ECG] [EKG] (2) Acute urinary retention Code(s): R33.8 - OTHER RETENTION OF URINE (3) Anxiety and depression Code(s): F41.9 - ANXIETY DISORDER, UNSPECIFIED; F32.9 - MAJOR DEPRESSIVE DISORDER, SINGLE EPISODE, UNSPECIFIED (4) Bacteriuria with pyuria Code(s): R82.71 - BACTERIURIA; R82.81 - PYURIA (5) Declining mobility Code(s): Z74.09 - OTHER REDUCED MOBILITY (6) Dehydration Code(s): E86.0 - DEHYDRATION (7) Parkinson disease, symptomatic Code(s): G20 - PARKINSON'S DISEASE (8) Weight loss, unintentional Code(s): R63.4 - ABNORMAL WEIGHT LOSS (9) Hip fracture, left Code(s): S72.002A - FRACTURE OF UNSP PART OF NECK OF LEFT FEMUR, INIT Qualifiers: Encounter type: initial encounter Fracture type: closed Qualified Code(s): S72.002A - Fracture of unspecified part of neck of left femur, initial encounter for closed fracture (10) Urinary retention Code(s): R33.9 - RETENTION OF URINE, UNSPECIFIED Assessment/Plan Parkinson's disease mildly elevated TNIs No chest pain ECHO wnl EKG: septal "AR" no longer present (? lead placement precordially); +nonspecific T wave abnormalities HTN UTI anxiety/depression Plan; TNI 0.11-->0.05 Continue ASA 81 QD On metoprolol ER. On Sinemet. On antibiotics. Maintain hydration. Due to advance Parkinsons ds, poor mental status and inability to cooperate with advance testing I would recommend medical Rx. d/w son at the bedside who agrees with the plan
--- NOTE | 2020-06-02 17:42 | PN ---
Progress Note (short form) - Note Progress Note: Active Medications Amantadine HCl (Symmetrel -) 100 mg PO DAILY [facility] Last Admin: 06/02/20 09:24 Dose: 100 mg Documented by: Amino Acids (Prosource No Carb Liquid Pkt) 30 ml PO BID@0800,1730 [facility] Last Admin: 06/02/20 14:17 Dose: Not Given Documented by: Aspirin (Ecotrin -) 81 mg PO DAILY [facility] Last Admin: 06/02/20 09:22 Dose: 81 mg Documented by: Carbidopa/Levodopa (Sinemet 25/250 -) 1 each PO Q4HPO [facility] Last Admin: 06/02/20 14:04 Dose: 1 each Documented by: Enoxaparin Sodium (Lovenox -) 40 mg SQ DAILY [facility] Last Admin: 06/02/20 09:23 Dose: 40 mg Documented by: Entacapone (Comtan -) 200 mg PO Q4HPO [facility] Last Admin: 06/02/20 14:04 Dose: 200 mg Documented by: Dextrose/Sodium Chloride (D5-1/2ns -) 1,000 mls @ 75 mls/hr IV ASDIR [facility] Last Admin: 06/02/20 09:32 Dose: 75 mls/hr Documented by: Lorazepam (Ativan Injection -) 0.5 mg IVPUSH BID PRN PRN Reason: ANXIETY Last Admin: 06/02/20 00:08 Dose: 0.5 mg Documented by: Olanzapine (Zyprexa -) 7.5 mg PO HS [facility] Olanzapine 2.5 mg/ Olanzapine (5 mg) 7.5 mg PO HS [facility] Propranolol HCl (Inderal -) 10 mg PO TID [facility] Last Admin: 06/02/20 14:06 Dose: 10 mg Documented by: Senna (Senna -) 2 tab PO HS PRN PRN Reason: CONSTIPATION Active Medications Amantadine HCl (Symmetrel -) 100 mg PO DAILY [facility] Last Admin: 06/02/20 09:24 Dose: 100 mg Documented by: Amino Acids (Prosource No Carb Liquid Pkt) 30 ml PO BID@0800,1730 [facility] Last Admin: 06/02/20 14:17 Dose: Not Given Documented by: Aspirin (Ecotrin -) 81 mg PO DAILY [facility] Last Admin: 06/02/20 09:22 Dose: 81 mg Documented by: Carbidopa/Levodopa (Sinemet 25/250 -) 1 each PO Q4HPO [facility] Last Admin: 06/02/20 14:04 Dose: 1 each Documented by: Enoxaparin Sodium (Lovenox -) 40 mg SQ DAILY [facility] Last Admin: 06/02/20 09:23 Dose: 40 mg Documented by: Entacapone (Comtan -) 200 mg PO Q4HPO [facility] Last Admin: 06/02/20 14:04 Dose: 200 mg Documented by: Dextrose/Sodium Chloride (D5-1/2ns -) 1,000 mls @ 75 mls/hr IV ASDIR [facility] Last Admin: 06/02/20 09:32 Dose: 75 mls/hr Documented by: Lorazepam (Ativan Injection -) 0.5 mg IVPUSH BID PRN PRN Reason: ANXIETY Last Admin: 06/02/20 00:08 Dose: 0.5 mg Documented by: Olanzapine (Zyprexa -) 7.5 mg PO HS [facility] Olanzapine 2.5 mg/ Olanzapine (5 mg) 7.5 mg PO HS [facility] Propranolol HCl (Inderal -) 10 mg PO TID [facility] Last Admin: 06/02/20 14:06 Dose: 10 mg Documented by: Senna (Senna -) 2 tab PO HS PRN PRN Reason: CONSTIPATION Vital Signs Temperature 97.6 F 06/02/20 14:46 Pulse Rate 77 06/02/20 14:46 Respiratory Rate 18 06/02/20 14:46 Blood Pressure 123/89 06/02/20 14:46 O2 Sat by Pulse Oximetry (%) 99 06/02/20 09:25 CC: None `````````````````` skin--no lesions appreciated eyes--midline heart --RR abd--NT, soft neuro--awake, calm focused but a bit confused, verbal `````````````````````````````` Summ > Delirium--recurrent, multifactorial, became agitated overnight; was given IV Ativan x 1; became more composed in the early Am into the PM, ate and took his Meds. Psych consult appreciated; on Olanzapine 5mg; may increase dose as needed. > PD--advanced; nearing endstage with signif neuro-psych symptoms > Obst uropathy--requires Petty; otheriwise cannot void; (Urology note by Dr Smith written in error--no procedure was performed) > UTI--E coli; repeat C&S Negative; Rocephin stopped. > fail thrive--eating inconsistently; affected by his episodic delirium. May not be able to meet nutritional needs if his agitation and degree of confusion does not caitlin and restraints cannot be removed. PLAN: cont anti-psychotic, as he cannot be managed or cared for in any effective way as of late. ~~~~~~~~~~~~~~~~~~~~~~ D/w daughter ``````````````````````` Dr Harmon Problem List - Problems (1) Acute urinary retention Code(s): R33.8 - OTHER RETENTION OF URINE (2) Bacteriuria with pyuria Code(s): R82.71 - BACTERIURIA; R82.81 - PYURIA (3) Parkinson disease, symptomatic Code(s): G20 - PARKINSON'S DISEASE (4) Abnormal EKG Code(s): R94.31 - ABNORMAL ELECTROCARDIOGRAM [ECG] [EKG] (5) Weight loss, unintentional Code(s): R63.4 - ABNORMAL WEIGHT LOSS (6) Declining mobility Code(s): Z74.09 - OTHER REDUCED MOBILITY (7) Anxiety and depression Code(s): F41.9 - ANXIETY DISORDER, UNSPECIFIED; F32.9 - MAJOR DEPRESSIVE DISORDER, SINGLE EPISODE, UNSPECIFIED (8) Dehydration Code(s): E86.0 - DEHYDRATION
[2020-06-02] MEDS ORDERED: OLANZAPINE 2.5 MG, OLANZAPINE 5 MG PO SCH (22:00)
[2020-06-02] MEDS: OLANZapine 5 MG TABLET PO SCH (22:19)
[2020-06-03] MEDS: ENTACAPONE 200 MG TABLET PO SCH ×6 (01:10→21:32)
[2020-06-03] MEDS: CARBIDOPA/LEVODOPA 25/250 TABLET (FP) PO SCH ×6 (01:10→21:32)
[2020-06-03] MEDS: DEXTROSE 5%-0.45% SALINE 1,000 ML IV SCH ×2 (06:09→08:42)
--- NOTE | 2020-06-03 07:18 | PN ---
Progress Note, Physician History of Present Illness: pulmonary awake,confused,restless - Current Medication List Current Medications: Active Medications Amantadine HCl (Symmetrel -) 100 mg PO DAILY [facility] Last Admin: 06/02/20 09:24 Dose: 100 mg Documented by: Amino Acids (Prosource No Carb Liquid Pkt) 30 ml PO BID@0800,1730 [facility] Last Admin: 06/02/20 18:14 Dose: 30 ml Documented by: Aspirin (Ecotrin -) 81 mg PO DAILY [facility] Last Admin: 06/02/20 09:22 Dose: 81 mg Documented by: Carbidopa/Levodopa (Sinemet 25/250 -) 1 each PO Q4HPO [facility] Last Admin: 06/03/20 06:04 Dose: 1 each Documented by: Enoxaparin Sodium (Lovenox -) 40 mg SQ DAILY [facility] Last Admin: 06/02/20 09:23 Dose: 40 mg Documented by: Entacapone (Comtan -) 200 mg PO Q4HPO [facility] Last Admin: 06/03/20 06:04 Dose: 200 mg Documented by: Dextrose/Sodium Chloride (D5-1/2ns -) 1,000 mls @ 75 mls/hr IV ASDIR [facility] Last Admin: 06/03/20 06:09 Dose: 75 mls/hr Documented by: Lorazepam (Ativan Injection -) 0.5 mg IVPUSH BID PRN PRN Reason: ANXIETY Last Admin: 06/02/20 00:08 Dose: 0.5 mg Documented by: Olanzapine (Zyprexa -) 5 mg PO HS [facility] Last Admin: 06/02/20 22:19 Dose: 5 mg Documented by: Propranolol HCl (Inderal -) 10 mg PO TID [facility] Last Admin: 06/03/20 06:04 Dose: 10 mg Documented by: Senna (Senna -) 2 tab PO HS PRN PRN Reason: CONSTIPATION - Objective Vital Signs: Vital Signs Temperature 98.4 F 06/03/20 05:48 Pulse Rate 86 06/03/20 05:48 Respiratory Rate 18 06/03/20 05:48 Blood Pressure 128/76 06/03/20 05:48 O2 Sat by Pulse Oximetry (%) 98 06/03/20 05:48 Constitutional: Yes: Thin, Other (confused,restless) Eyes: Yes: WNL HENT: Yes: WNL Neck: Yes: WNL Cardiovascular: Yes: Regular Rate and Rhythm, S1, S2 Respiratory: Yes: Rales (twan crackles,few rhonchi) Gastrointestinal: Yes: Normal Bowel Sounds, Soft Extremities: Yes: WNL Edema: No Labs: CBC, BMP Problem List - Problems (1) COPD (chronic obstructive pulmonary disease) Code(s): J44.9 - CHRONIC OBSTRUCTIVE PULMONARY DISEASE, UNSPECIFIED (2) Acute urinary retention Code(s): R33.8 - OTHER RETENTION OF URINE (3) Declining mobility Code(s): Z74.09 - OTHER REDUCED MOBILITY (4) Parkinson disease, symptomatic Code(s): G20 - PARKINSON'S DISEASE (5) Weight loss, unintentional Code(s): R63.4 - ABNORMAL WEIGHT LOSS (6) Urinary retention Code(s): R33.9 - RETENTION OF URINE, UNSPECIFIED Assessment/Plan IMP COPD STABLE PARKINSONS URINARY RETENTION BPH PLAN O2 NEEDED INHALED BRONCHODILATORS NEEDED MONITOR LYTES W/U PER UROLOGY Problem List - Problems (1) COPD (chronic obstructive pulmonary disease) Code(s): J44.9 - CHRONIC OBSTRUCTIVE PULMONARY DISEASE, UNSPECIFIED (2) Acute urinary retention Code(s): R33.8 - OTHER RETENTION OF URINE (3) Declining mobility Code(s): Z74.09 - OTHER REDUCED MOBILITY (4) Parkinson disease, symptomatic Code(s): G20 - PARKINSON'S DISEASE (5) Weight loss, unintentional Code(s): R63.4 - ABNORMAL WEIGHT LOSS (6) Urinary retention Code(s): R33.9 - RETENTION OF URINE, UNSPECIFIED
[2020-06-03 08:56] LABS: BLOOD UREA NITROGEN 19.6 mg/dL (7-18); CALCIUM 8.4 mg/dL (8.5-10.1); CREATININE 0.6 mg/dL (0.55-1.3); POTASSIUM 4.2 mmol/L (3.5-5.1)
[2020-06-03] MEDS: AMINO ACIDS/PROTEIN HYDROLYS 30 ML LIQUID.PKT PO SCH ×2 (08:59→18:05)
[2020-06-03] MEDS: ASPIRIN COATED 81 MG TABLET.EC PO SCH (09:02)
[2020-06-03] MEDS ORDERED: PT OWN MED DRAWER 7, Y5N ONE ×4 (09:02→21:30)
[2020-06-03] MEDS: ENOXAPARIN NA (PORCINE) 40 MG/0.4 ML DISP.SYRIN SQ SCH (09:03)
--- NOTE | 2020-06-03 11:07 | PN ---
Progress Note, [employer] - Note Progress Note: Selected Entries 06/02/20 06/02/20 06/02/20 10:55 14:46 22:00 Breakfast 50% Lunch 75% Supper 25% Temperature Pulse Rate Blood Pressure 06/03/20 06/03/20 06/03/20 05:48 10:08 10:34 Breakfast 75% Lunch Supper Temperature 98.4 F 97.9 F Pulse Rate 86 70 Blood Pressure 128/76 114/68 Laboratory Tests 05/31/20 07:49 WBC 5.7 On soft diet/nectar thick liquid Looking better, self feeding with good tolerance. More calm, verbal
[2020-06-03] MEDS ORDERED: OLANZapine 2.5 MG TABLET PO STA (11:37)
--- NOTE | 2020-06-03 11:43 | PN ---
Progress Note (short form) - Note Progress Note: Current Medications Generic Name Dose Route Start Last Admin Trade Name Rea PRN Reason Stop Dose Admin Amantadine HCl 100 mg 05/30/20 10:00 06/02/20 09:24 Symmetrel - PO 100 mg DAILY [facility] Administration Amino Acids 30 ml 05/31/20 17:30 06/03/20 08:59 Prosource No Carb Liquid Pkt PO 30 ml BID@0800,1730 [facility] Administration Aspirin 81 mg 05/27/20 16:15 06/03/20 09:02 Ecotrin - PO 81 mg DAILY [facility] Administration Carbidopa/Levodopa 1 each 05/26/20 10:00 06/03/20 09:14 Sinemet 25/250 - PO 1 each Q4HPO [facility] Administration Enoxaparin Sodium 40 mg 05/26/20 10:00 06/03/20 09:03 Lovenox - SQ 40 mg DAILY [facility] Administration Entacapone 200 mg 05/26/20 10:00 06/03/20 09:10 Comtan - PO 200 mg Q4HPO [facility] Administration Dextrose/Sodium Chloride 1,000 mls @ 75 mls/hr 05/31/20 18:00 06/03/20 08:42 D5-1/2ns - IV Not Given ASDIR [facility] Lorazepam 0.5 mg 05/29/20 17:23 06/02/20 00:08 Ativan Injection - IVPUSH 0.5 mg BID PRN Administration ANXIETY Olanzapine 5 mg 06/02/20 22:00 06/02/20 22:19 Zyprexa - PO 5 mg HS [facility] Administration Olanzapine 2.5 mg 06/03/20 11:33 Zyprexa - PO 06/03/20 11:34 ONCE STA Propranolol HCl 10 mg 06/02/20 14:00 06/03/20 06:04 Inderal - PO 10 mg TID [facility] Administration Senna 2 tab 05/26/20 20:20 Senna - PO HS PRN CONSTIPATION Discontinued Medications Generic Name Dose Route Start Last Admin Trade Name Fremadhav PRN Reason Stop Dose Admin Alprazolam 0.5 mg 05/25/20 22:46 Xanax - PO Q12H PRN ANXIETY Alprazolam 0.25 mg 05/28/20 21:00 05/28/20 23:34 Xanax - PO 05/28/20 21:01 0.25 mg ONCE ONE Administration Amantadine HCl 100 mg 05/29/20 11:00 05/29/20 11:47 Symmetrel - PO 05/29/20 22:01 Not Given BID [facility] Bisacodyl 10 mg 05/26/20 20:20 05/26/20 21:49 Dulcolax Suppository - [place] 05/26/20 20:21 Not Given ONCE ONE Carbidopa/Levodopa 1 each 05/25/20 23:00 05/26/20 02:15 Sinemet 25/250 - PO 1 each Q4H [facility] Administration Clonazepam 0.5 mg 05/30/20 18:00 06/01/20 06:34 Klonopin - PO Not Given BID@0600,1800 [facility] Entacapone 200 mg 05/25/20 22:57 05/25/20 23:37 Comtan - PO 05/25/20 22:58 200 mg Q4H [facility] Administration Escitalopram Oxalate 5 mg 05/27/20 10:00 05/27/20 10:44 Lexapro - PO 05/27/20 10:01 5 mg ONCE ONE Administration Ceftriaxone Sodium 1 gm/ 50 mls @ 200 mls/hr 05/25/20 21:03 05/25/20 21:25 Dextrose IVPB 05/25/20 21:17 200 mls/hr ONCE ONE Administration Protocol Ceftriaxone Sodium 1 gm/ 50 mls @ 100 mls/hr 05/25/20 22:53 Dextrose IVPB 05/25/20 23:22 ONCE ONE Ceftriaxone Sodium 1 gm/ 50 mls @ 100 mls/hr 05/26/20 20:00 05/26/20 21:05 Dextrose IVPB 05/26/20 20:29 100 mls/hr DAILY ONE Administration Sodium Chloride 1,000 mls @ 75 mls/hr 05/25/20 23:15 05/26/20 02:15 1/2 Normal Saline IV 75 mls/hr ASDIR [facility] Administration Sodium Chloride 1,000 mls @ 42 mls/hr 05/27/20 00:19 05/27/20 00:51 1/2 Normal Saline IV 42 mls/hr ASDIR [facility] Administration Ceftriaxone Sodium 1 gm/ 100 mls @ 200 mls/hr 05/27/20 15:30 05/27/20 18:18 Dextrose IVPB Not Given DAILY [facility] Ceftriaxone Sodium 1 gm/ 50 mls @ 200 mls/hr 05/28/20 10:00 Dextrose IVPB DAILY [facility] Protocol Sodium Chloride 1,000 mls @ 50 mls/hr 05/27/20 15:30 05/27/20 17:29 Normal Saline - IV 05/28/20 15:23 50 mls/hr ASDIR [facility] Administration Ceftriaxone Sodium 1 gm/ 50 mls @ 200 mls/hr 05/27/20 16:30 06/02/20 09:22 Dextrose IVPB 200 mls/hr DAILY [facility] Administration Protocol Sodium Chloride 1,000 mls @ 125 mls/hr 05/29/20 12:30 05/29/20 12:41 Normal Saline - IV 125 mls/hr ASDIR [facility] Administration Sodium Chloride 1,000 mls @ 75 mls/hr 05/29/20 17:24 05/29/20 17:56 Normal Saline - IV 05/30/20 10:00 75 mls/hr ASDIR [facility] Administration Amino Acids 1,000 mls @ 42 mls/hr 05/30/20 10:00 05/31/20 10:04 Clinimix - IV 05/31/20 18:00 Not Given Q24H [facility] Lorazepam 0.5 mg 06/01/20 04:30 06/01/20 05:15 Ativan Injection - IVPUSH 06/02/20 04:29 0.5 mg ONCE PRN Administration AGITATION Metoprolol Succinate 12.5 mg 05/29/20 10:00 05/30/20 09:20 Toprol Xl - PO 12.5 mg DAILY [facility] Administration Mirtazapine 7.5 mg 05/28/20 22:00 05/28/20 23:36 Remeron - PO 7.5 mg HS [facility] Administration Olanzapine 5 mg 06/01/20 22:00 06/01/20 22:21 Zyprexa - PO 5 mg HS [facility] Administration Olanzapine 7.5 mg 06/02/20 09:53 Zyprexa - PO HS [facility] Olanzapine 2.5 mg/ Olanzapine 7.5 mg 06/02/20 22:00 5 mg PO HS [facility] Polyethylene Glycol 17 gm 05/26/20 18:48 Miralax (For Daily Use) - PO DAILY PRN CONSTIPATION Pramipexole Dihydrochloride 1.5 mg 05/25/20 23:00 08/28/20 15:30 Mirapex - PO Not Given TID [facility] Propranolol HCl 10 mg 05/30/20 22:00 Inderal - PO BID [facility] Propranolol HCl 10 mg 05/31/20 10:00 06/02/20 09:23 Inderal - PO 10 mg BID [facility] Administration Quetiapine Fumarate 25 mg 05/29/20 04:00 05/29/20 04:00 Seroquel - PO 05/29/20 04:01 25 mg ONCE ONE Administration Quetiapine Fumarate 25 mg 05/29/20 14:00 Seroquel - PO TID [facility] Quetiapine Fumarate 50 mg 06/01/20 10:00 Seroquel - PO BID [facility] Quetiapine Fumarate 50 mg 06/01/20 22:00 Seroquel - PO HS [facility] Laboratory Results - last 24 hr 06/03/20 07:35 Sodium 142 Potassium 4.2 Chloride 110 H Carbon Dioxide 28 Anion Gap 4 L BUN 19.6 H Creatinine 0.6 Est GFR (CKD-EPI)AfAm 108.52 Est GFR (CKD-EPI)NonAf 93.63 Random Glucose 107 H Calcium 8.4 L Vital Signs Temperature 97.9 F 06/03/20 10:08 Pulse Rate 70 06/03/20 10:08 Respiratory Rate 18 06/03/20 10:08 Blood Pressure 114/68 06/03/20 10:08 O2 Sat by Pulse Oximetry (%) 98 06/03/20 10:08 CC: None `````````````````` skin--no lesions appreciated; IV site clean eyes--midline heart --RR abd--NT, soft neuro--awake, calm, unaware of what he is trying to do; (+) verbal; (+) chooreiform movements `````````````````````````````` Summ > Delirium--multifactorial, seems less agitated with use of Zyprexa. Nurse reports that he is still trying to "pull out" his catheter and IV, though he denies it. He appears composed and focused, but might still have subacute delirium. PLAN; 1 extra dose of Zyprexa at 2.5mg . > PD--advanced; nearing endstage with signif neuro-psych symptoms; unsure if helped by current regimen but according to nurse he was able to ambulate with assistive device. > Obst uropathy--requires Petty; otherwise cannot void > UTI--E coli; repeat C&S Negative; Rocephin stopped. > fail thrive--affected by his episodic delirium. ate well this AM but, may not be able to meet nutritional needs if his agitation and degree of confusion does not caitlin and restraints cannot be removed. PLAN: cont anti-psychotic, as he cannot be managed or cared for in any effective way thus far. ``````````````````````` Dr Harmon Problem List - Problems (1) Acute urinary retention Code(s): R33.8 - OTHER RETENTION OF URINE (2) Bacteriuria with pyuria Code(s): R82.71 - BACTERIURIA; R82.81 - PYURIA (3) Parkinson disease, symptomatic Code(s): G20 - PARKINSON'S DISEASE (4) Abnormal EKG Code(s): R94.31 - ABNORMAL ELECTROCARDIOGRAM [ECG] [EKG] (5) Weight loss, unintentional Code(s): R63.4 - ABNORMAL WEIGHT LOSS (6) Declining mobility Code(s): Z74.09 - OTHER REDUCED MOBILITY (7) Anxiety and depression Code(s): F41.9 - ANXIETY DISORDER, UNSPECIFIED; F32.9 - MAJOR DEPRESSIVE DISORDER, SINGLE EPISODE, UNSPECIFIED (8) Dehydration Code(s): E86.0 - DEHYDRATION
[2020-06-03] MEDS ORDERED: DEXTROSE 5%-0.45% SALINE 1,000 ML IV SCH (11:44)
--- NOTE | 2020-06-03 12:18 | PN ---
Progress Note, Physician History of Present Illness: Pt is 84yo M with PMH Parkinson disease, BPH who presents with urinary retention. Patient was seen 2 weeks prior here for urinary retention and sent home with a Cooper in place. Since then, he has followed up with a urologist (Dr. Corea?). Today, the urologist removed the cooper @9am, for the patient to attempt urination. Pt was unable to urinate today and had increased suprapubic pressure/pain, told by urologist to come to ED. Reports hx of constipation, but states that he has been having regular BM. Uftdveeh-do-wvz states urine has appeared dark-yellow/orange, but denies any gross hematuria, clots, cloudiness to urine. Denies any f/c, chest pain, SOB, abdominal pain, n/v, loss of appetite. - Current Medication List Current Medications: Active Medications Amantadine HCl (Symmetrel -) 100 mg PO DAILY [facility] Last Admin: 06/02/20 09:24 Dose: 100 mg Documented by: Amino Acids (Prosource No Carb Liquid Pkt) 30 ml PO BID@0800,1730 [facility] Last Admin: 06/03/20 08:59 Dose: 30 ml Documented by: Aspirin (Ecotrin -) 81 mg PO DAILY [facility] Last Admin: 06/03/20 09:02 Dose: 81 mg Documented by: Carbidopa/Levodopa (Sinemet 25/250 -) 1 each PO Q4HPO [facility] Last Admin: 06/03/20 09:14 Dose: 1 each Documented by: Enoxaparin Sodium (Lovenox -) 40 mg SQ DAILY [facility] Last Admin: 06/03/20 09:03 Dose: 40 mg Documented by: Entacapone (Comtan -) 200 mg PO Q4HPO [facility] Last Admin: 06/03/20 09:10 Dose: 200 mg Documented by: Dextrose/Sodium Chloride (D5-1/2ns -) 1,000 mls @ 42 mls/hr IV ASDIR [facility] Last Admin: 06/03/20 11:58 Dose: 42 mls/hr Documented by: Lorazepam (Ativan Injection -) 0.5 mg IVPUSH BID PRN PRN Reason: ANXIETY Last Admin: 06/02/20 00:08 Dose: 0.5 mg Documented by: Olanzapine (Zyprexa -) 5 mg PO HS [facility] Last Admin: 06/02/20 22:19 Dose: 5 mg Documented by: Propranolol HCl (Inderal -) 10 mg PO TID [facility] Last Admin: 06/03/20 06:04 Dose: 10 mg Documented by: Senna (Senna -) 2 tab PO HS PRN PRN Reason: CONSTIPATION - Objective Vital Signs: Vital Signs Temperature 97.9 F 06/03/20 10:08 Pulse Rate 70 06/03/20 10:08 Respiratory Rate 18 06/03/20 10:08 Blood Pressure 114/68 06/03/20 10:08 O2 Sat by Pulse Oximetry (%) 98 06/03/20 10:08 Eyes: Yes: WNL, Conjunctiva Clear, EOM Intact HENT: Yes: WNL, Atraumatic, Normocephalic Neck: Yes: WNL, Supple, Trachea Midline Cardiovascular: Yes: WNL, Regular Rate and Rhythm Respiratory: Yes: WNL, Regular, CTA Bilaterally Gastrointestinal: Yes: WNL, Normal Bowel Sounds Genitourinary: Yes: WNL Musculoskeletal: Yes: WNL Extremities: Yes: WNL Edema: No Integumentary: Yes: WNL Neurological: Yes: WNL, Alert, Oriented ...Motor Strength: WNL Psychiatric: Yes: WNL Labs: CBC, BMP 05/31/20 07:49 06/03/20 07:35 Problem List - Problems (1) Abnormal EKG Code(s): R94.31 - ABNORMAL ELECTROCARDIOGRAM [ECG] [EKG] (2) Acute urinary retention Code(s): R33.8 - OTHER RETENTION OF URINE (3) Anxiety and depression Code(s): F41.9 - ANXIETY DISORDER, UNSPECIFIED; F32.9 - MAJOR DEPRESSIVE DISORDER, SINGLE EPISODE, UNSPECIFIED (4) Bacteriuria with pyuria Code(s): R82.71 - BACTERIURIA; R82.81 - PYURIA (5) Declining mobility Code(s): Z74.09 - OTHER REDUCED MOBILITY (6) Dehydration Code(s): E86.0 - DEHYDRATION (7) Parkinson disease, symptomatic Code(s): G20 - PARKINSON'S DISEASE (8) Weight loss, unintentional Code(s): R63.4 - ABNORMAL WEIGHT LOSS (9) Hip fracture, left Code(s): S72.002A - FRACTURE OF UNSP PART OF NECK OF LEFT FEMUR, INIT Qualifiers: Encounter type: initial encounter Fracture type: closed Qualified Code(s): S72.002A - Fracture of unspecified part of neck of left femur, initial encounter for closed fracture (10) Urinary retention Code(s): R33.9 - RETENTION OF URINE, UNSPECIFIED Assessment/Plan Parkinson's disease mildly elevated TNIs No chest pain ECHO wnl EKG: septal "[place]" no longer present (? lead placement precordially); +nonspecific T wave abnormalities HTN UTI anxiety/depression Plan; TNI 0.11-->0.05 Continue ASA 81 QD On metoprolol ER. On Sinemet. On antibiotics. Maintain hydration. Due to advance Parkinsons ds, poor mental status and inability to cooperate with advance testing I would recommend medical Rx.
[2020-06-03] MEDS: AMANTADINE HCL 100 MG TABLET PO SCH (14:55)
[2020-06-03] MEDS: OLANZapine 5 MG TABLET PO SCH (21:34)
[2020-06-04] MEDS: ENTACAPONE 200 MG TABLET PO SCH ×6 (01:52→21:44)
[2020-06-04] MEDS: CARBIDOPA/LEVODOPA 25/250 TABLET (FP) PO SCH ×6 (01:52→21:43)
[2020-06-04] MEDS: OLANZapine 2.5 MG TABLET PO SCH (10:18)
[2020-06-04] MEDS: AMANTADINE HCL 100 MG TABLET PO SCH (10:25)
[2020-06-04] MEDS ORDERED: PT OWN MED DRAWER 7, Y5N ONE ×3 (10:26→19:46)
[2020-06-04] MEDS: AMINO ACIDS/PROTEIN HYDROLYS 30 ML LIQUID.PKT PO SCH ×2 (10:29→19:51)
[2020-06-04] MEDS: ASPIRIN COATED 81 MG TABLET.EC PO SCH (11:03)
[2020-06-04] MEDS: ENOXAPARIN NA (PORCINE) 40 MG/0.4 ML DISP.SYRIN SQ SCH (11:03)
--- NOTE | 2020-06-04 12:25 | PN ---
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
--- NOTE | 2020-06-04 13:52 | PN ---
Progress Note, Physician History of Present Illness: Pt is 84yo M with PMH Parkinson disease, BPH who presents with urinary retention. Patient was seen 2 weeks prior here for urinary retention and sent home with a Cooper in place. Since then, he has followed up with a urologist (Dr. Corea?). Today, the urologist removed the cooper @9am, for the patient to attempt urination. Pt was unable to urinate today and had increased suprapubic pressure/pain, told by urologist to come to ED. Reports hx of constipation, but states that he has been having regular BM. Uizdzkmt-er-pno states urine has appeared dark-yellow/orange, but denies any gross hematuria, clots, cloudiness to urine. Denies any f/c, chest pain, SOB, abdominal pain, n/v, loss of appetite. - Current Medication List Current Medications: Active Medications Amantadine HCl (Symmetrel -) 100 mg PO DAILY [facility] Last Admin: 06/04/20 10:25 Dose: 100 mg Documented by: Amino Acids (Prosource No Carb Liquid Pkt) 30 ml PO BID@0800,1730 [facility] Last Admin: 06/04/20 10:29 Dose: 30 ml Documented by: Aspirin (Ecotrin -) 81 mg PO DAILY [facility] Last Admin: 06/04/20 11:03 Dose: 81 mg Documented by: Carbidopa/Levodopa (Sinemet 25/250 -) 1 each PO Q4HPO [facility] Last Admin: 06/04/20 10:21 Dose: 1 each Documented by: Enoxaparin Sodium (Lovenox -) 40 mg SQ DAILY [facility] Last Admin: 06/04/20 11:03 Dose: 40 mg Documented by: Entacapone (Comtan -) 200 mg PO Q4HPO [facility] Last Admin: 06/04/20 10:20 Dose: 200 mg Documented by: Dextrose/Sodium Chloride (D5-1/2ns -) 1,000 mls @ 42 mls/hr IV ASDIR [facility] Last Admin: 06/03/20 11:58 Dose: 42 mls/hr Documented by: Lorazepam (Ativan Injection -) 0.5 mg IVPUSH BID PRN PRN Reason: ANXIETY Last Admin: 06/02/20 00:08 Dose: 0.5 mg Documented by: Olanzapine (Zyprexa -) 5 mg PO HS [facility] Last Admin: 06/03/20 21:34 Dose: 5 mg Documented by: Olanzapine (Zyprexa -) 2.5 mg PO DAILY [facility] Last Admin: 06/04/20 10:18 Dose: 2.5 mg Documented by: Propranolol HCl (Inderal -) 10 mg PO TID [facility] Last Admin: 06/04/20 05:05 Dose: 10 mg Documented by: Senna (Senna -) 2 tab PO HS PRN PRN Reason: CONSTIPATION - Objective Vital Signs: Vital Signs Temperature 98.7 F 06/04/20 05:50 Pulse Rate 60 06/04/20 05:50 Respiratory Rate 20 06/04/20 05:50 Blood Pressure 142/86 06/04/20 05:50 O2 Sat by Pulse Oximetry (%) 96 06/04/20 05:50 Eyes: Yes: WNL, Conjunctiva Clear, EOM Intact HENT: Yes: WNL, Atraumatic, Normocephalic Neck: Yes: WNL, Supple, Trachea Midline Cardiovascular: Yes: WNL, Regular Rate and Rhythm Respiratory: Yes: WNL, Regular, CTA Bilaterally Gastrointestinal: Yes: WNL, Normal Bowel Sounds Genitourinary: Yes: WNL Musculoskeletal: Yes: WNL Extremities: Yes: WNL Edema: No Integumentary: Yes: WNL Labs: CBC, BMP 05/31/20 07:49 06/03/20 07:35 Problem List - Problems (1) Abnormal EKG Code(s): R94.31 - ABNORMAL ELECTROCARDIOGRAM [ECG] [EKG] (2) Acute urinary retention Code(s): R33.8 - OTHER RETENTION OF URINE (3) Anxiety and depression Code(s): F41.9 - ANXIETY DISORDER, UNSPECIFIED; F32.9 - MAJOR DEPRESSIVE DISORDER, SINGLE EPISODE, UNSPECIFIED (4) Bacteriuria with pyuria Code(s): R82.71 - BACTERIURIA; R82.81 - PYURIA (5) Declining mobility Code(s): Z74.09 - OTHER REDUCED MOBILITY (6) Dehydration Code(s): E86.0 - DEHYDRATION (7) Parkinson disease, symptomatic Code(s): G20 - PARKINSON'S DISEASE (8) Weight loss, unintentional Code(s): R63.4 - ABNORMAL WEIGHT LOSS (9) Hip fracture, left Code(s): S72.002A - FRACTURE OF UNSP PART OF NECK OF LEFT FEMUR, INIT Qualifiers: Encounter type: initial encounter Fracture type: closed Qualified Code(s): S72.002A - Fracture of unspecified part of neck of left femur, initial encounter for closed fracture (10) Urinary retention Code(s): R33.9 - RETENTION OF URINE, UNSPECIFIED Assessment/Plan Parkinson's disease mildly elevated TNIs No chest pain ECHO wnl EKG: septal "[place]" no longer present (? lead placement precordially); +nonspecific T wave abnormalities HTN UTI anxiety/depression Plan; TNI 0.11-->0.05 Continue ASA 81 QD On metoprolol ER. On Sinemet. On antibiotics. Maintain hydration. Due to advance Parkinsons ds, poor mental status and inability to cooperate with advance testing I would recommend medical Rx.
--- NOTE | 2020-06-04 14:57 | PN ---
Progress Note, Physician History of Present Illness: PULMONARY AWAKE,LESS CONFUSED,-RESP DISTRESS - Current Medication List Current Medications: Active Medications Amantadine HCl (Symmetrel -) 100 mg PO DAILY [facility] Last Admin: 06/04/20 10:25 Dose: 100 mg Documented by: Amino Acids (Prosource No Carb Liquid Pkt) 30 ml PO BID@0800,1730 [facility] Last Admin: 06/04/20 10:29 Dose: 30 ml Documented by: Aspirin (Ecotrin -) 81 mg PO DAILY [facility] Last Admin: 06/04/20 11:03 Dose: 81 mg Documented by: Carbidopa/Levodopa (Sinemet 25/250 -) 1 each PO Q4HPO [facility] Last Admin: 06/04/20 10:21 Dose: 1 each Documented by: Enoxaparin Sodium (Lovenox -) 40 mg SQ DAILY [facility] Last Admin: 06/04/20 11:03 Dose: 40 mg Documented by: Entacapone (Comtan -) 200 mg PO Q4HPO [facility] Last Admin: 06/04/20 10:20 Dose: 200 mg Documented by: Dextrose/Sodium Chloride (D5-1/2ns -) 1,000 mls @ 42 mls/hr IV ASDIR [facility] Last Admin: 06/03/20 11:58 Dose: 42 mls/hr Documented by: Lorazepam (Ativan Injection -) 0.5 mg IVPUSH BID PRN PRN Reason: ANXIETY Last Admin: 06/02/20 00:08 Dose: 0.5 mg Documented by: Olanzapine (Zyprexa -) 5 mg PO HS [facility] Last Admin: 06/03/20 21:34 Dose: 5 mg Documented by: Olanzapine (Zyprexa -) 2.5 mg PO DAILY [facility] Last Admin: 06/04/20 10:18 Dose: 2.5 mg Documented by: Propranolol HCl (Inderal -) 10 mg PO TID [facility] Last Admin: 06/04/20 05:05 Dose: 10 mg Documented by: Senna (Senna -) 2 tab PO HS PRN PRN Reason: CONSTIPATION - Objective Vital Signs: Vital Signs Temperature 98.7 F 06/04/20 05:50 Pulse Rate 60 06/04/20 05:50 Respiratory Rate 20 06/04/20 05:50 Blood Pressure 142/86 06/04/20 05:50 O2 Sat by Pulse Oximetry (%) 96 06/04/20 05:50 Constitutional: Yes: Calm, Thin Eyes: Yes: WNL HENT: Yes: WNL Neck: Yes: WNL Cardiovascular: Yes: Regular Rate and Rhythm, S1, S2 Respiratory: Yes: Rales (GASPER CRACKLES 1/3 UP) Gastrointestinal: Yes: Normal Bowel Sounds, Soft Extremities: Yes: WNL Edema: No Labs: Problem List - Problems (1) COPD (chronic obstructive pulmonary disease) Code(s): J44.9 - CHRONIC OBSTRUCTIVE PULMONARY DISEASE, UNSPECIFIED (2) Acute urinary retention Code(s): R33.8 - OTHER RETENTION OF URINE (3) Declining mobility Code(s): Z74.09 - OTHER REDUCED MOBILITY (4) Parkinson disease, symptomatic Code(s): G20 - PARKINSON'S DISEASE (5) Weight loss, unintentional Code(s): R63.4 - ABNORMAL WEIGHT LOSS (6) Urinary retention Code(s): R33.9 - RETENTION OF URINE, UNSPECIFIED Assessment/Plan IMP COPD STABLE PARKINSONS URINARY RETENTION BPH PLAN O2 NEEDED INHALED BRONCHODILATORS NEEDED MONITOR LYTES W/U PER UROLOGY Problem List - Problems (1) COPD (chronic obstructive pulmonary disease) Code(s): J44.9 - CHRONIC OBSTRUCTIVE PULMONARY DISEASE, UNSPECIFIED (2) Acute urinary retention Code(s): R33.8 - OTHER RETENTION OF URINE (3) Declining mobility Code(s): Z74.09 - OTHER REDUCED MOBILITY (4) Parkinson disease, symptomatic Code(s): G20 - PARKINSON'S DISEASE (5) Weight loss, unintentional Code(s): R63.4 - ABNORMAL WEIGHT LOSS (6) Urinary retention Code(s): R33.9 - RETENTION OF URINE, UNSPECIFIED
--- NOTE | 2020-06-04 15:47 | PN ---
Progress Note (short form) - Note Progress Note: Active Medications Amantadine HCl (Symmetrel -) 100 mg PO DAILY [facility] Last Admin: 06/04/20 10:25 Dose: 100 mg Documented by: Amino Acids (Prosource No Carb Liquid Pkt) 30 ml PO BID@0800,1730 [facility] Last Admin: 06/04/20 10:29 Dose: 30 ml Documented by: Aspirin (Ecotrin -) 81 mg PO DAILY [facility] Last Admin: 06/04/20 11:03 Dose: 81 mg Documented by: Carbidopa/Levodopa (Sinemet 25/250 -) 1 each PO Q4HPO [facility] Last Admin: 06/04/20 10:21 Dose: 1 each Documented by: Docusate Sodium (Colace -) 100 mg PO DAILY [facility] Enoxaparin Sodium (Lovenox -) 40 mg SQ DAILY [facility] Last Admin: 06/04/20 11:03 Dose: 40 mg Documented by: Entacapone (Comtan -) 200 mg PO Q4HPO [facility] Last Admin: 06/04/20 10:20 Dose: 200 mg Documented by: Lorazepam (Ativan Injection -) 0.5 mg IVPUSH BID PRN PRN Reason: ANXIETY Last Admin: 06/02/20 00:08 Dose: 0.5 mg Documented by: Olanzapine (Zyprexa -) 5 mg PO HS [facility] Last Admin: 06/03/20 21:34 Dose: 5 mg Documented by: Olanzapine (Zyprexa -) 2.5 mg PO DAILY [facility] Last Admin: 06/04/20 10:18 Dose: 2.5 mg Documented by: Propranolol HCl (Inderal -) 10 mg PO TID [facility] Last Admin: 06/04/20 05:05 Dose: 10 mg Documented by: Senna (Senna -) 2 tab PO HS PRN PRN Reason: CONSTIPATION Vital Signs Temperature 98.8 F 06/04/20 14:00 Pulse Rate 92 H 06/04/20 14:00 Respiratory Rate 06/04/20 05:50 Blood Pressure 115/61 06/04/20 14:00 O2 Sat by Pulse Oximetry (%) 96 06/04/20 05:50 CC: None `````````````````` skin--no lesions appreciated; IV site clean eyes--midline heart --RR abd--NT, soft neuro--awake, calm, good eye contact; voice hypophonic; flat affect; some mild rigidity; no tremors or choreiform movements at this time; mood neutral; thoughts organized but still a bit confused; no gross focal motor deficits. `````````````````````````````` Summ > Delirium--multifactorial, seems less agitated with use of Zyprexa. Less restless and has not attempted to pull out any tubes w/o restraints. He seems more focused and less agitated. PLAN: cont Zyprexa as ordered > PD--advanced; nearing endstage with signif neuro-psych symptoms; unsure if helped by current regimen but according to nurse he was able to ambulate with assistive device. > Obst uropathy--requires Petty; otherwise cannot void > UTI--E coli; repeat C&S Negative; Rocephin stopped. > fail thrive--affected by his episodic delirium. Superimposed on adv PD; however, seems to be eating better and seems to be more compliant and amenable to being cared for. Prognosis guarded, but might benefit from short term rehab. ``````````````````````` Dr Harmon Problem List - Problems (1) Acute urinary retention Code(s): R33.8 - OTHER RETENTION OF URINE (2) Bacteriuria with pyuria Code(s): R82.71 - BACTERIURIA; R82.81 - PYURIA (3) Parkinson disease, symptomatic Code(s): G20 - PARKINSON'S DISEASE (4) Abnormal EKG Code(s): R94.31 - ABNORMAL ELECTROCARDIOGRAM [ECG] [EKG] (5) Weight loss, unintentional Code(s): R63.4 - ABNORMAL WEIGHT LOSS (6) Declining mobility Code(s): Z74.09 - OTHER REDUCED MOBILITY (7) Anxiety and depression Code(s): F41.9 - ANXIETY DISORDER, UNSPECIFIED; F32.9 - MAJOR DEPRESSIVE DISORDER, SINGLE EPISODE, UNSPECIFIED (8) Dehydration Code(s): E86.0 - DEHYDRATION
[2020-06-04] MEDS: OLANZapine 5 MG TABLET PO SCH (21:43)
[2020-06-05] MEDS: CARBIDOPA/LEVODOPA 25/250 TABLET (FP) PO SCH ×6 (01:17→21:24)
[2020-06-05] MEDS: ENTACAPONE 200 MG TABLET PO SCH ×6 (01:18→21:24)
--- NOTE | 2020-06-05 08:04 | PN ---
Progress Note, Physician History of Present Illness: pulmonary awake,less confused,-resp distress - Current Medication List Current Medications: Active Medications Amantadine HCl (Symmetrel -) 100 mg PO DAILY [facility] Last Admin: 06/04/20 10:25 Dose: 100 mg Documented by: Amino Acids (Prosource No Carb Liquid Pkt) 30 ml PO BID@0800,1730 [facility] Last Admin: 06/04/20 19:51 Dose: 30 ml Documented by: Aspirin (Ecotrin -) 81 mg PO DAILY [facility] Last Admin: 06/04/20 11:03 Dose: 81 mg Documented by: Carbidopa/Levodopa (Sinemet 25/250 -) 1 each PO Q4HPO [facility] Last Admin: 06/05/20 05:51 Dose: 1 each Documented by: Docusate Sodium (Colace -) 100 mg PO DAILY [facility] Enoxaparin Sodium (Lovenox -) 40 mg SQ DAILY [facility] Last Admin: 06/04/20 11:03 Dose: 40 mg Documented by: Entacapone (Comtan -) 200 mg PO Q4HPO [facility] Last Admin: 06/05/20 05:51 Dose: 200 mg Documented by: Lorazepam (Ativan Injection -) 0.5 mg IVPUSH BID PRN PRN Reason: ANXIETY Last Admin: 06/02/20 00:08 Dose: 0.5 mg Documented by: Olanzapine (Zyprexa -) 5 mg PO HS [facility] Last Admin: 06/04/20 21:43 Dose: 5 mg Documented by: Olanzapine (Zyprexa -) 2.5 mg PO DAILY [facility] Last Admin: 06/04/20 10:18 Dose: 2.5 mg Documented by: Propranolol HCl (Inderal -) 10 mg PO TID [facility] Last Admin: 06/05/20 05:51 Dose: 10 mg Documented by: Senna (Senna -) 2 tab PO HS PRN PRN Reason: CONSTIPATION - Objective Vital Signs: Vital Signs Temperature 98.4 F 06/05/20 05:21 Pulse Rate 82 06/05/20 05:21 Respiratory Rate 20 06/05/20 05:21 Blood Pressure 142/86 06/05/20 05:21 O2 Sat by Pulse Oximetry (%) 96 06/05/20 05:21 Constitutional: Yes: No Distress, Calm, Thin Eyes: Yes: WNL HENT: Yes: WNL Neck: Yes: WNL Cardiovascular: Yes: Regular Rate and Rhythm, S1, S2 Respiratory: Yes: Rales (bibasilar crackles) Gastrointestinal: Yes: Normal Bowel Sounds, Soft Extremities: Yes: WNL Edema: No Labs: CBC, BMP 05/31/20 07:49 06/03/20 07:35 Problem List - Problems (1) COPD (chronic obstructive pulmonary disease) Code(s): J44.9 - CHRONIC OBSTRUCTIVE PULMONARY DISEASE, UNSPECIFIED (2) Acute urinary retention Code(s): R33.8 - OTHER RETENTION OF URINE (3) Declining mobility Code(s): Z74.09 - OTHER REDUCED MOBILITY (4) Parkinson disease, symptomatic Code(s): G20 - PARKINSON'S DISEASE (5) Weight loss, unintentional Code(s): R63.4 - ABNORMAL WEIGHT LOSS (6) Urinary retention Code(s): R33.9 - RETENTION OF URINE, UNSPECIFIED Assessment/Plan IMP COPD STABLE PARKINSONS URINARY RETENTION BPH PLAN O2 NEEDED INHALED BRONCHODILATORS NEEDED MONITOR LYTES Problem List - Problems (1) COPD (chronic obstructive pulmonary disease) Code(s): J44.9 - CHRONIC OBSTRUCTIVE PULMONARY DISEASE, UNSPECIFIED (2) Acute urinary retention Code(s): R33.8 - OTHER RETENTION OF URINE (3) Declining mobility Code(s): Z74.09 - OTHER REDUCED MOBILITY (4) Parkinson disease, symptomatic Code(s): G20 - PARKINSON'S DISEASE (5) Weight loss, unintentional Code(s): R63.4 - ABNORMAL WEIGHT LOSS (6) Urinary retention Code(s): R33.9 - RETENTION OF URINE, UNSPECIFIED
[2020-06-05 09:23] LABS: BLOOD UREA NITROGEN 24.2 mg/dL (7-18); CALCIUM 8.8 mg/dL (8.5-10.1); CREATININE 0.6 mg/dL (0.55-1.3); POTASSIUM 4.1 mmol/L (3.5-5.1)
[2020-06-05] MEDS ORDERED: PT OWN MED DRAWER 7, Y5N ONE ×4 (10:01→21:02)
[2020-06-05] MEDS: DOCUSATE SODIUM 100 MG CAPSULE (FP) PO SCH (10:03)
[2020-06-05] MEDS: ASPIRIN COATED 81 MG TABLET.EC PO SCH (10:03)
[2020-06-05] MEDS: AMINO ACIDS/PROTEIN HYDROLYS 30 ML LIQUID.PKT PO SCH ×2 (10:03→18:10)
[2020-06-05] MEDS: ENOXAPARIN NA (PORCINE) 40 MG/0.4 ML DISP.SYRIN SQ SCH (10:05)
[2020-06-05] MEDS: AMANTADINE HCL 100 MG TABLET PO SCH (10:07)
[2020-06-05] MEDS: OLANZapine 2.5 MG TABLET PO SCH (10:08)
--- NOTE | 2020-06-05 12:54 | PN ---
Progress Note, Physician History of Present Illness: Pt is 84yo M with PMH Parkinson disease, BPH who presents with urinary retention. Patient was seen 2 weeks prior here for urinary retention and sent home with a Cooper in place. Since then, he has followed up with a urologist (Dr. Corea?). Today, the urologist removed the cooper @9am, for the patient to attempt urination. Pt was unable to urinate today and had increased suprapubic pressure/pain, told by urologist to come to ED. Reports hx of constipation, but states that he has been having regular BM. Tqxhvbeg-ar-koo states urine has appeared dark-yellow/orange, but denies any gross hematuria, clots, cloudiness to urine. Denies any f/c, chest pain, SOB, abdominal pain, n/v, loss of appetite. - Current Medication List Current Medications: Active Medications Amantadine HCl (Symmetrel -) 100 mg PO DAILY [facility] Last Admin: 06/05/20 10:07 Dose: 100 mg Documented by: Amino Acids (Prosource No Carb Liquid Pkt) 30 ml PO BID@0800,1730 [facility] Last Admin: 06/05/20 10:03 Dose: 30 ml Documented by: Aspirin (Ecotrin -) 81 mg PO DAILY [facility] Last Admin: 06/05/20 10:03 Dose: 81 mg Documented by: Carbidopa/Levodopa (Sinemet 25/250 -) 1 each PO Q4HPO [facility] Last Admin: 06/05/20 10:06 Dose: 1 each Documented by: Docusate Sodium (Colace -) 100 mg PO DAILY [facility] Last Admin: 06/05/20 10:03 Dose: 100 mg Documented by: Enoxaparin Sodium (Lovenox -) 40 mg SQ DAILY [facility] Last Admin: 06/05/20 10:05 Dose: 40 mg Documented by: Entacapone (Comtan -) 200 mg PO Q4HPO [facility] Last Admin: 06/05/20 10:04 Dose: 200 mg Documented by: Lorazepam (Ativan Injection -) 0.5 mg IVPUSH BID PRN PRN Reason: ANXIETY Last Admin: 06/02/20 00:08 Dose: 0.5 mg Documented by: Olanzapine (Zyprexa -) 5 mg PO [facility] Last Admin: 06/04/20 21:43 Dose: 5 mg Documented by: Olanzapine (Zyprexa -) 2.5 mg PO DAILY [facility] Last Admin: 06/05/20 10:08 Dose: 2.5 mg Documented by: Propranolol HCl (Inderal -) 10 mg PO TID [facility] Last Admin: 06/05/20 05:51 Dose: 10 mg Documented by: Senna (Senna -) 2 tab PO HS PRN PRN Reason: CONSTIPATION - Objective Vital Signs: Vital Signs Temperature 98.4 F 06/05/20 05:21 Pulse Rate 82 06/05/20 05:21 Respiratory Rate 06/05/20 05:21 Blood Pressure 142/86 06/05/20 05:21 O2 Sat by Pulse Oximetry (%) 96 06/05/20 05:21 Eyes: Yes: WNL, Conjunctiva Clear, EOM Intact HENT: Yes: WNL, Atraumatic, Normocephalic Neck: Yes: WNL, Supple, Trachea Midline Cardiovascular: Yes: WNL, Regular Rate and Rhythm Respiratory: Yes: WNL, Regular, CTA Bilaterally Gastrointestinal: Yes: WNL, Normal Bowel Sounds Genitourinary: Yes: WNL Musculoskeletal: Yes: WNL Extremities: Yes: WNL Edema: No Integumentary: Yes: WNL Psychiatric: Yes: WNL Labs: CBC, BMP 05/31/20 07:49 06/05/20 07:55 Problem List - Problems (1) Abnormal EKG Code(s): R94.31 - ABNORMAL ELECTROCARDIOGRAM [ECG] [EKG] (2) Acute urinary retention Code(s): R33.8 - OTHER RETENTION OF URINE (3) Anxiety and depression Code(s): F41.9 - ANXIETY DISORDER, UNSPECIFIED; F32.9 - MAJOR DEPRESSIVE DISORDER, SINGLE EPISODE, UNSPECIFIED (4) Bacteriuria with pyuria Code(s): R82.71 - BACTERIURIA; R82.81 - PYURIA (5) Declining mobility Code(s): Z74.09 - OTHER REDUCED MOBILITY (6) Dehydration Code(s): E86.0 - DEHYDRATION (7) Parkinson disease, symptomatic Code(s): G20 - PARKINSON'S DISEASE (8) Weight loss, unintentional Code(s): R63.4 - ABNORMAL WEIGHT LOSS (9) Hip fracture, left Code(s): S72.002A - FRACTURE OF UNSP PART OF NECK OF LEFT FEMUR, INIT Qualifiers: Encounter type: initial encounter Fracture type: closed Qualified Code(s): S72.002A - Fracture of unspecified part of neck of left femur, initial encounter for closed fracture (10) Urinary retention Code(s): R33.9 - RETENTION OF URINE, UNSPECIFIED Assessment/Plan Parkinson's disease mildly elevated TNIs No chest pain ECHO wnl EKG: septal "[place]" no longer present (? lead placement precordially); +nonspecific T wave abnormalities HTN UTI anxiety/depression Plan; TNI 0.11-->0.05 Continue ASA 81 QD On metoprolol ER. On Sinemet. On antibiotics. Maintain hydration. Due to advance Parkinsons ds, poor mental status and inability to cooperate with advance testing I would recommend medical Rx.
--- NOTE | 2020-06-05 13:41 | PN ---
Progress Note, CHANGE MANAGEMENT SPECIALIST - Note Progress Note: Selected Entries 06/04/20 06/04/20 06/04/20 02:11 05:50 10:41 Breakfast 75% Diet Tolerated Fair Fair Well Temperature 98.7 F 98.7 F Doing very7 well with reg diet, bnectar thick liquid. Reassessed sips of thin liquid with overtly good tolerance. Pt seems to prefer nectar thick liquid Consider free water protocol b/n meals (single sips of thin water, after mouth care)
--- NOTE | 2020-06-05 16:37 | PN ---
Progress Note (short form) - Note Progress Note: Active Medications Amantadine HCl (Symmetrel -) 100 mg PO DAILY [facility] Last Admin: 06/05/20 10:07 Dose: 100 mg Documented by: Amino Acids (Prosource No Carb Liquid Pkt) 30 ml PO BID@0800,1730 [facility] Last Admin: 06/05/20 10:03 Dose: 30 ml Documented by: Aspirin (Ecotrin -) 81 mg PO DAILY [facility] Last Admin: 06/05/20 10:03 Dose: 81 mg Documented by: Carbidopa/Levodopa (Sinemet 25/250 -) 1 each PO Q4HPO [facility] Last Admin: 06/05/20 14:51 Dose: 1 each Documented by: Docusate Sodium (Colace -) 100 mg PO DAILY [facility] Last Admin: 06/05/20 10:03 Dose: 100 mg Documented by: Enoxaparin Sodium (Lovenox -) 40 mg SQ DAILY [facility] Last Admin: 06/05/20 10:05 Dose: 40 mg Documented by: Entacapone (Comtan -) 200 mg PO Q4HPO [facility] Last Admin: 06/05/20 14:52 Dose: 200 mg Documented by: Escitalopram Oxalate (Lexapro -) 5 mg PO DAILY [facility] Lorazepam (Ativan Injection -) 0.5 mg IVPUSH BID PRN PRN Reason: ANXIETY Last Admin: 06/02/20 00:08 Dose: 0.5 mg Documented by: Olanzapine (Zyprexa -) 5 mg PO HS [facility] Last Admin: 06/04/20 21:43 Dose: 5 mg Documented by: Olanzapine (Zyprexa -) 2.5 mg PO DAILY [facility] Last Admin: 06/05/20 10:08 Dose: 2.5 mg Documented by: Propranolol HCl (Inderal -) 10 mg PO TID [facility] Last Admin: 06/05/20 14:51 Dose: 10 mg Documented by: Senna (Senna -) 2 tab PO HS PRN PRN Reason: CONSTIPATION Laboratory Results - last 24 hr 06/04/20 06/05/20 12:55 07:55 Sodium 143 Potassium 4.1 Chloride 107 Carbon Dioxide 30 Anion Gap 6 L BUN 24.2 H Creatinine 0.6 Est GFR (CKD-EPI)AfAm 108.52 Est GFR (CKD-EPI)NonAf 93.63 Random Glucose 98 Calcium 8.8 COVID-19 (KENISHA) Not detected Vital Signs Temperature 98.3 F 06/05/20 15:29 Pulse Rate 92 H 06/05/20 15:29 Respiratory Rate 18 06/05/20 15:29 Blood Pressure 101/58 L 06/05/20 15:29 O2 Sat by Pulse Oximetry (%) 98 06/05/20 15:29 CC: None `````````````````` skin--Buttock redness (Allyeven applied), IV site clean eyes--midline lungs--few rhonchi; unlabored heart --RR abd--NT, soft neuro--awake, calm, good eye contact; voice hypophonic; flat affect; some mild rigidity; no tremors or choreiform movements at this time; mood neutral; thoughts organized but still a bit confused; no gross focal motor deficits. `````````````````````````````` Summ > Delirium--multifactorial, better controlled with use of Zyprexa in split dosi ng. Has not attempted to pull out any tubes w/o restraints. He seems more focused and less agitated. PLAN: cont Zyprexa as ordered, because he poses a significant risk of self harm w/o it. > Hypotension--mild; unsure if he can meet his hydration needs now that he is off IVF. Low BP precludes attempts to increase dose of the BB. > PD--advanced; nearing endstage with signif neuro-psych symptoms; degree to which he has improved with current regimen is difficult to gauge in this setting; at this point; I feel he would benefit from PT at rehab. > Obst uropathy--requires Petty; otherwise cannot void > UTI--resolved. > fail thrive--made worse by state delirium which he seems to have come out of now; according to , he is prone to moments of agitation (at home) PLAn: will try low dose SSRI. ``````````````````````` Dr Harmon Problem List - Problems (1) Acute urinary retention Code(s): R33.8 - OTHER RETENTION OF URINE (2) Bacteriuria with pyuria Code(s): R82.71 - BACTERIURIA; R82.81 - PYURIA (3) Parkinson disease, symptomatic Code(s): G20 - PARKINSON'S DISEASE (4) Abnormal EKG Code(s): R94.31 - ABNORMAL ELECTROCARDIOGRAM [ECG] [EKG] (5) Weight loss, unintentional Code(s): R63.4 - ABNORMAL WEIGHT LOSS (6) Declining mobility Code(s): Z74.09 - OTHER REDUCED MOBILITY (7) Anxiety and depression Code(s): F41.9 - ANXIETY DISORDER, UNSPECIFIED; F32.9 - MAJOR DEPRESSIVE DISORDER, SINGLE EPISODE, UNSPECIFIED (8) Dehydration Code(s): E86.0 - DEHYDRATION
[2020-06-05] MEDS: OLANZapine 5 MG TABLET PO SCH (21:24)
[2020-06-06] MEDS: CARBIDOPA/LEVODOPA 25/250 TABLET (FP) PO SCH ×6 (01:17→22:48)
[2020-06-06] MEDS: ENTACAPONE 200 MG TABLET PO SCH ×6 (01:17→22:48)
[2020-06-06] MEDS: DOCUSATE SODIUM 100 MG CAPSULE (FP) PO SCH (10:00)
[2020-06-06] MEDS: AMINO ACIDS/PROTEIN HYDROLYS 30 ML LIQUID.PKT PO SCH ×2 (10:00→16:39)
[2020-06-06] MEDS: ESCITALOPRAM OXALATE 10 MG TABLET PO SCH (10:01)
[2020-06-06] MEDS: ASPIRIN COATED 81 MG TABLET.EC PO SCH (10:01)
[2020-06-06] MEDS: ENOXAPARIN NA (PORCINE) 40 MG/0.4 ML DISP.SYRIN SQ SCH (10:02)
[2020-06-06] MEDS: AMANTADINE HCL 100 MG TABLET PO SCH (10:03)
[2020-06-06] MEDS: OLANZapine 2.5 MG TABLET PO SCH (10:03)
--- NOTE | 2020-06-06 10:05 | PN ---
Progress Note, Physician History of Present Illness: PULMONARY AWAKE,-SOB,CP - Current Medication List Current Medications: Active Medications Amantadine HCl (Symmetrel -) 100 mg PO DAILY [facility] Last Admin: 06/05/20 10:07 Dose: 100 mg Documented by: Amino Acids (Prosource No Carb Liquid Pkt) 30 ml PO BID@0800,1730 [facility] Last Admin: 06/05/20 18:10 Dose: 30 ml Documented by: Aspirin (Ecotrin -) 81 mg PO DAILY [facility] Last Admin: 06/05/20 10:03 Dose: 81 mg Documented by: Carbidopa/Levodopa (Sinemet 25/250 -) 1 each PO Q4HPO [facility] Last Admin: 06/06/20 05:28 Dose: 1 each Documented by: Docusate Sodium (Colace -) 100 mg PO DAILY [facility] Last Admin: 06/05/20 10:03 Dose: 100 mg Documented by: Enoxaparin Sodium (Lovenox -) 40 mg SQ DAILY [facility] Last Admin: 06/05/20 10:05 Dose: 40 mg Documented by: Entacapone (Comtan -) 200 mg PO Q4HPO [facility] Last Admin: 06/06/20 05:28 Dose: 200 mg Documented by: Escitalopram Oxalate (Lexapro -) 5 mg PO DAILY [facility] Lorazepam (Ativan Injection -) 0.5 mg IVPUSH BID PRN PRN Reason: ANXIETY Last Admin: 06/02/20 00:08 Dose: 0.5 mg Documented by: Olanzapine (Zyprexa -) 5 mg PO HS [facility] Last Admin: 06/05/20 21:24 Dose: 5 mg Documented by: Olanzapine (Zyprexa -) 2.5 mg PO DAILY [facility] Last Admin: 06/05/20 10:08 Dose: 2.5 mg Documented by: Propranolol HCl (Inderal -) 10 mg PO TID [facility] Last Admin: 06/06/20 05:27 Dose: 10 mg Documented by: Senna (Senna -) 2 tab PO HS PRN PRN Reason: CONSTIPATION - Objective Vital Signs: Vital Signs Temperature 97.4 F L 06/06/20 09:23 Pulse Rate 87 06/06/20 09:23 Respiratory Rate 18 06/06/20 09:23 Blood Pressure 128/61 06/06/20 09:23 O2 Sat by Pulse Oximetry (%) 94 L 06/06/20 09:23 Constitutional: Yes: Calm, Thin Eyes: Yes: WNL HENT: Yes: WNL Neck: Yes: WNL Cardiovascular: Yes: Regular Rate and Rhythm, S1, S2 Respiratory: Yes: Rales (GASPER CRACKLES) Gastrointestinal: Yes: Normal Bowel Sounds, Soft Extremities: Yes: WNL Edema: No Labs: Problem List - Problems (1) COPD (chronic obstructive pulmonary disease) Code(s): J44.9 - CHRONIC OBSTRUCTIVE PULMONARY DISEASE, UNSPECIFIED (2) Acute urinary retention Code(s): R33.8 - OTHER RETENTION OF URINE (3) Declining mobility Code(s): Z74.09 - OTHER REDUCED MOBILITY (4) Parkinson disease, symptomatic Code(s): G20 - PARKINSON'S DISEASE (5) Weight loss, unintentional Code(s): R63.4 - ABNORMAL WEIGHT LOSS (6) Urinary retention Code(s): R33.9 - RETENTION OF URINE, UNSPECIFIED Assessment/Plan IMP COPD STABLE PARKINSONS URINARY RETENTION BPH PLAN O2 NEEDED INHALED BRONCHODILATORS NEEDED MONITOR LYTES Problem List - Problems (1) COPD (chronic obstructive pulmonary disease) Code(s): J44.9 - CHRONIC OBSTRUCTIVE PULMONARY DISEASE, UNSPECIFIED (2) Acute urinary retention Code(s): R33.8 - OTHER RETENTION OF URINE (3) Declining mobility Code(s): Z74.09 - OTHER REDUCED MOBILITY (4) Parkinson disease, symptomatic Code(s): G20 - PARKINSON'S DISEASE (5) Weight loss, unintentional Code(s): R63.4 - ABNORMAL WEIGHT LOSS (6) Urinary retention Code(s): R33.9 - RETENTION OF URINE, UNSPECIFIED
--- NOTE | 2020-06-06 10:45 | PN ---
Progress Note, Physician History of Present Illness: Pt is 84yo M with PMH Parkinson disease, BPH who presents with urinary retention. Patient was seen 2 weeks prior here for urinary retention and sent home with a Cooper in place. Since then, he has followed up with a urologist (Dr. Corea?). Today, the urologist removed the cooper @9am, for the patient to attempt urination. Pt was unable to urinate today and had increased suprapubic pressure/pain, told by urologist to come to ED. Reports hx of constipation, but states that he has been having regular BM. [id number] states urine has appeared dark-yellow/orange, but denies any gross hematuria, clots, cloudiness to urine. Denies any f/c, chest pain, SOB, abdominal pain, n/v, loss of appetite. - Current Medication List Current Medications: Active Medications Amantadine HCl (Symmetrel -) 100 mg PO DAILY [facility] Last Admin: 06/06/20 10:03 Dose: 100 mg Documented by: Amino Acids (Prosource No Carb Liquid Pkt) 30 ml PO BID@0800,1730 [facility] Last Admin: 06/06/20 10:00 Dose: 30 ml Documented by: Aspirin (Ecotrin -) 81 mg PO DAILY [facility] Last Admin: 06/06/20 10:01 Dose: 81 mg Documented by: Carbidopa/Levodopa (Sinemet 25/250 -) 1 each PO Q4HPO [facility] Last Admin: 06/06/20 10:02 Dose: 1 each Documented by: Docusate Sodium (Colace -) 100 mg PO DAILY [facility] Last Admin: 06/06/20 10:00 Dose: 100 mg Documented by: Enoxaparin Sodium (Lovenox -) 40 mg SQ DAILY [facility] Last Admin: 06/06/20 10:02 Dose: 40 mg Documented by: Entacapone (Comtan -) 200 mg PO Q4HPO [facility] Last Admin: 06/06/20 10:02 Dose: 200 mg Documented by: Escitalopram Oxalate (Lexapro -) 5 mg PO DAILY [facility] Last Admin: 06/06/20 10:01 Dose: 5 mg Documented by: Lorazepam (Ativan Injection -) 0.5 mg IVPUSH BID PRN PRN Reason: ANXIETY Last Admin: 06/02/20 00:08 Dose: 0.5 mg Documented by: Olanzapine (Zyprexa -) 5 mg PO HS [facility] Last Admin: 06/05/20 21:24 Dose: 5 mg Documented by: Olanzapine (Zyprexa -) 2.5 mg PO DAILY [facility] Last Admin: 06/06/20 10:03 Dose: 2.5 mg Documented by: Propranolol HCl (Inderal -) 10 mg PO TID [facility] Last Admin: 06/06/20 05:27 Dose: 10 mg Documented by: Senna (Senna -) 2 tab PO HS PRN PRN Reason: CONSTIPATION - Objective Vital Signs: Vital Signs Temperature 97.4 F L 06/06/20 09:23 Pulse Rate 87 06/06/20 09:23 Respiratory Rate 18 06/06/20 09:23 Blood Pressure 128/61 06/06/20 09:23 O2 Sat by Pulse Oximetry (%) 94 L 06/06/20 09:23 Eyes: Yes: WNL, Conjunctiva Clear, EOM Intact HENT: Yes: WNL, Atraumatic, Normocephalic Neck: Yes: WNL, Supple, Trachea Midline Cardiovascular: Yes: WNL, Regular Rate and Rhythm Respiratory: Yes: WNL, Regular, CTA Bilaterally Gastrointestinal: Yes: WNL, Normal Bowel Sounds Genitourinary: Yes: WNL Musculoskeletal: Yes: WNL Extremities: Yes: WNL Edema: No Integumentary: Yes: WNL Labs: CBC, BMP 05/31/20 07:49 06/05/20 07:55 Problem List - Problems (1) Abnormal EKG Code(s): R94.31 - ABNORMAL ELECTROCARDIOGRAM [ECG] [EKG] (2) Acute urinary retention Code(s): R33.8 - OTHER RETENTION OF URINE (3) Anxiety and depression Code(s): F41.9 - ANXIETY DISORDER, UNSPECIFIED; F32.9 - MAJOR DEPRESSIVE DI SORDER, SINGLE EPISODE, UNSPECIFIED (4) Bacteriuria with pyuria Code(s): R82.71 - BACTERIURIA; R82.81 - PYURIA (5) Declining mobility Code(s): Z74.09 - OTHER REDUCED MOBILITY (6) Dehydration Code(s): E86.0 - DEHYDRATION (7) Parkinson disease, symptomatic Code(s): G20 - PARKINSON'S DISEASE (8) Weight loss, unintentional Code(s): R63.4 - ABNORMAL WEIGHT LOSS (9) Hip fracture, left Code(s): S72.002A - FRACTURE OF UNSP PART OF NECK OF LEFT FEMUR, INIT Qualifiers: Encounter type: initial encounter Fracture type: closed Qualified Code(s): S72.002A - Fracture of unspecified part of neck of left femur, initial encounter for closed fracture (10) Urinary retention Code(s): R33.9 - RETENTION OF URINE, UNSPECIFIED Assessment/Plan Parkinson's disease mildly elevated TNIs No chest pain ECHO wnl EKG: septal "MN" no longer present (? lead placement precordially); +nonspecific T wave abnormalities HTN UTI anxiety/depression Plan; TNI 0.11-->0.05 Continue ASA 81 QD On metoprolol ER. On Sinemet. On antibiotics. Maintain hydration. Due to advance Parkinsons ds, poor mental status and inability to cooperate with advance testing I would recommend medical Rx.
--- NOTE | 2020-06-06 11:04 | PN ---
Progress Note (short form) - Note Progress Note: Active Medications Amantadine HCl (Symmetrel -) 100 mg PO DAILY [facility] Last Admin: 06/06/20 10:03 Dose: 100 mg Documented by: Amino Acids (Prosource No Carb Liquid Pkt) 30 ml PO BID@0800,1730 [facility] Last Admin: 06/06/20 10:00 Dose: 30 ml Documented by: Aspirin (Ecotrin -) 81 mg PO DAILY [facility] Last Admin: 06/06/20 10:01 Dose: 81 mg Documented by: Carbidopa/Levodopa (Sinemet 25/250 -) 1 each PO Q4HPO [facility] Last Admin: 06/06/20 10:02 Dose: 1 each Documented by: Docusate Sodium (Colace -) 100 mg PO DAILY [facility] Last Admin: 06/06/20 10:00 Dose: 100 mg Documented by: Enoxaparin Sodium (Lovenox -) 40 mg SQ DAILY [facility] Last Admin: 06/06/20 10:02 Dose: 40 mg Documented by: Entacapone (Comtan -) 200 mg PO Q4HPO [facility] Last Admin: 06/06/20 10:02 Dose: 200 mg Documented by: Escitalopram Oxalate (Lexapro -) 5 mg PO DAILY [facility] Last Admin: 06/06/20 10:01 Dose: 5 mg Documented by: Lorazepam (Ativan Injection -) 0.5 mg IVPUSH BID PRN PRN Reason: ANXIETY Last Admin: 06/02/20 00:08 Dose: 0.5 mg Documented by: Olanzapine (Zyprexa -) 5 mg PO HS [facility] Last Admin: 06/05/20 21:24 Dose: 5 mg Documented by: Olanzapine (Zyprexa -) 2.5 mg PO DAILY [facility] Last Admin: 06/06/20 10:03 Dose: 2.5 mg Documented by: Propranolol HCl (Inderal -) 10 mg PO TID [facility] Last Admin: 06/06/20 05:27 Dose: 10 mg Documented by: Senna (Senna -) 2 tab PO HS PRN PRN Reason: CONSTIPATION Laboratory Results - last 24 hr 06/04/20 12:55 COVID-19 (KENISHA) Not detected Vital Signs Temperature 97.4 F L 06/06/20 09:23 Pulse Rate 87 06/06/20 09:23 Respiratory Rate 18 06/06/20 09:23 Blood Pressure 128/61 06/06/20 09:23 O2 Sat by Pulse Oximetry (%) 94 L 06/06/20 09:23 CC: None `````````````````` skin--Buttock redness (Allyeven applied), IV site clean eyes--midline lungs--few rhonchi; unlabored heart --RR abd--NT, soft --with catheter in place neuro--awake, calm, good eye contact; voice hypophonic; flat affect; some mild rigidity; no tremors or choreiform movements noted at this time; no gross focal motor deficits. `````````````````````````````` Summ > Delirium--multifactorial, better controlled with use of Zyprexa in split dosing. Has not attempted to pull out any tubes w/o restraints. He seems more focused and less agitated. PLAN: cont Zyprexa as ordered, because he poses a significant risk of self harm w/o it. > Hypotension--mild; Fluctuates, Low BP precludes attempts to increase dose of the BB. > PD--advanced; nearing endstage with signif neuro-psych symptoms; degree to which he has improved with current regimen is difficult to gauge in this setting; at this point; I feel he would benefit from PT at rehab. > Obst uropathy--requires Petty cath; otherwise cannot void; PLAN: check UA > UTI--resolved. > fail thrive--main underlying cause is progressing PD. ``````````````````````` Dr Harmon Problem List - Problems (1) Acute urinary retention Code(s): R33.8 - OTHER RETENTION OF URINE (2) Bacteriuria with pyuria Code(s): R82.71 - BACTERIURIA; R82.81 - PYURIA (3) Parkinson disease, symptomatic Code(s): G20 - PARKINSON'S DISEASE (4) Abnormal EKG Code(s): R94.31 - ABNORMAL ELECTROCARDIOGRAM [ECG] [EKG] (5) Weight loss, unintentional Code(s): R63.4 - ABNORMAL WEIGHT LOSS (6) Declining mobility Code(s): Z74.09 - OTHER REDUCED MOBILITY (7) Anxiety and depression Code(s): F41.9 - ANXIETY DISORDER, UNSPECIFIED; F32.9 - MAJOR DEPRESSIVE DISORDER, SINGLE EPISODE, UNSPECIFIED (8) Dehydration Code(s): E86.0 - DEHYDRATION
[2020-06-06 15:00] LABS: EPI CELLS 6 /uL (0-25.1); HYALINE CASTS 1 /uL (0-3.1); PH,URINE 5.5 (5.0-8.0); URINE APPEARANCE CLEAR; URINE BACTERIA 18 /uL (0-1359); URINE BILIRUBIN NEGATIVE (NEGATIVE); URINE COLOR DK YELLOW; URINE GLUCOSE (UA) NEGATIVE (NEGATIVE); URINE KETONE TRACE (NEGATIVE); URINE LEUK ESTERASE 1+ (NEGATIVE); URINE NITRITE NEGATIVE (NEGATIVE); URINE PROTEIN NEGATIVE (NEGATIVE); URINE RBC 36 /uL (0-23.9); URINE UROBILINOGEN 0.2 mg/dL (0.2-1.0); URINE WBC 26 /uL (0-25.8)
[2020-06-06] MEDS ORDERED: PT OWN MED DRAWER 7, Y5N ONE (22:39)
[2020-06-06] MEDS: OLANZapine 5 MG TABLET PO SCH (22:48)
[2020-06-07] MEDS: ENTACAPONE 200 MG TABLET PO SCH ×6 (01:46→22:00)
[2020-06-07] MEDS: CARBIDOPA/LEVODOPA 25/250 TABLET (FP) PO SCH ×6 (01:46→22:00)
[2020-06-07 08:32] LABS: BLOOD UREA NITROGEN 24.6 mg/dL (7-18); CALCIUM 8.7 mg/dL (8.5-10.1); CREATININE 0.7 mg/dL (0.55-1.3); POTASSIUM 4.6 mmol/L (3.5-5.1)
--- NOTE | 2020-06-07 08:49 | PN ---
Progress Note, Physician History of Present Illness: Pt is 84yo M with PMH Parkinson disease, BPH who presents with urinary retention. Patient was seen 2 weeks prior here for urinary retention and sent home with a Cooper in place. Since then, he has followed up with a urologist (Dr. Corea?). Today, the urologist removed the cooper @9am, for the patient to attempt urination. Pt was unable to urinate today and had increased suprapubic pressure/pain, told by urologist to come to ED. Reports hx of constipation, but states that he has been having regular BM. [id number] states urine has appeared dark-yellow/orange, but denies any gross hematuria, clots, cloudiness to urine. Denies any f/c, chest pain, SOB, abdominal pain, n/v, loss of appetite. - Current Medication List Current Medications: Active Medications Amantadine HCl (Symmetrel -) 100 mg PO DAILY [facility] Last Admin: 06/06/20 10:03 Dose: 100 mg Documented by: Amino Acids (Prosource No Carb Liquid Pkt) 30 ml PO BID@0800,1730 [facility] Last Admin: 06/06/20 16:39 Dose: 30 ml Documented by: Aspirin (Ecotrin -) 81 mg PO DAILY [facility] Last Admin: 06/06/20 10:01 Dose: 81 mg Documented by: Carbidopa/Levodopa (Sinemet 25/250 -) 1 each PO Q4HPO [facility] Last Admin: 06/07/20 05:06 Dose: 1 each Documented by: Docusate Sodium (Colace -) 100 mg PO DAILY [facility] Last Admin: 06/06/20 10:00 Dose: 100 mg Documented by: Enoxaparin Sodium (Lovenox -) 40 mg SQ DAILY [facility] Last Admin: 06/06/20 10:02 Dose: 40 mg Documented by: Entacapone (Comtan -) 200 mg PO Q4HPO [facility] Last Admin: 06/07/20 05:06 Dose: 200 mg Documented by: Escitalopram Oxalate (Lexapro -) 5 mg PO DAILY [facility] Last Admin: 06/06/20 10:01 Dose: 5 mg Documented by: Lorazepam (Ativan Injection -) 0.5 mg IVPUSH BID PRN PRN Reason: ANXIETY Last Admin: 06/02/20 00:08 Dose: 0.5 mg Documented by: Olanzapine (Zyprexa -) 5 mg PO HS [facility] Last Admin: 06/06/20 22:48 Dose: 5 mg Documented by: Olanzapine (Zyprexa -) 2.5 mg PO DAILY [facility] Last Admin: 06/06/20 10:03 Dose: 2.5 mg Documented by: Propranolol HCl (Inderal -) 10 mg PO TID [facility] Last Admin: 06/07/20 05:07 Dose: 10 mg Documented by: Senna (Senna -) 2 tab PO HS PRN PRN Reason: CONSTIPATION - Objective Vital Signs: Vital Signs Temperature 97.9 F 06/07/20 04:54 Pulse Rate 74 06/07/20 04:54 Respiratory Rate 18 06/07/20 04:54 Blood Pressure 107/61 06/07/20 04:54 O2 Sat by Pulse Oximetry (%) 95 06/07/20 04:54 Eyes: Yes: WNL, Conjunctiva Clear, EOM Intact HENT: Yes: WNL, Atraumatic, Normocephalic Neck: Yes: WNL, Supple, Trachea Midline Cardiovascular: Yes: WNL, Regular Rate and Rhythm Respiratory: Yes: WNL, Regular, CTA Bilaterally Gastrointestinal: Yes: WNL, Normal Bowel Sounds Genitourinary: Yes: WNL Musculoskeletal: Yes: WNL Extremities: Yes: WNL Edema: No Integumentary: Yes: WNL Neurological: Yes: Alert Labs: CBC, BMP 05/31/20 07:49 06/07/20 06:55 Problem List - Problems (1) Abnormal EKG Code(s): R94.31 - ABNORMAL ELECTROCARDIOGRAM [ECG] [EKG] (2) Acute urinary retention Code(s): R33.8 - OTHER RETENTION OF URINE (3) Anxiety and depression Code(s): F41.9 - ANXIETY DISORDER, UNSPECIFIED; F32.9 - MAJOR DEPRESSIVE DISORDER, SINGLE EPISODE, UNSPECIFIED (4) Bacteriuria with pyuria Code(s): R82.71 - BACTERIURIA; R82.81 - PYURIA (5) Declining mobility Code(s): Z74.09 - OTHER REDUCED MOBILITY (6) Dehydration Code(s): E86.0 - DEHYDRATION (7) Parkinson disease, symptomatic Code(s): G20 - PARKINSON'S DISEASE (8) Weight loss, unintentional Code(s): R63.4 - ABNORMAL WEIGHT LOSS (9) Hip fracture, left Code(s): S72.002A - FRACTURE OF UNSP PART OF NECK OF LEFT FEMUR, INIT Qualifiers: Encounter type: initial encounter Fracture type: closed Qualified Code(s): S72.002A - Fracture of unspecified part of neck of left femur, initial encounter for closed fracture (10) Urinary retention Code(s): R33.9 - RETENTION OF URINE, UNSPECIFIED Assessment/Plan Parkinson's disease mildly elevated TNIs No chest pain ECHO wnl EKG: septal "NE" no longer present (? lead placement precordially); +nonspecific T wave abnormalities HTN UTI anxiety/depression Plan; TNI 0.11-->0.05 Continue ASA 81 QD On metoprolol ER. On Sinemet. On antibiotics. Maintain hydration. Due to advance Parkinsons ds, poor mental status and inability to cooperate with advance testing I would recommend medical Rx.
[2020-06-07] MEDS: OLANZapine 2.5 MG TABLET PO SCH (09:27)
[2020-06-07] MEDS: AMANTADINE HCL 100 MG TABLET PO SCH (09:27)
[2020-06-07] MEDS: ASPIRIN COATED 81 MG TABLET.EC PO SCH (09:27)
[2020-06-07] MEDS: DOCUSATE SODIUM 100 MG CAPSULE (FP) PO SCH (09:28)
[2020-06-07] MEDS: ESCITALOPRAM OXALATE 10 MG TABLET PO SCH (09:28)
[2020-06-07] MEDS: ENOXAPARIN NA (PORCINE) 40 MG/0.4 ML DISP.SYRIN SQ SCH (09:28)
[2020-06-07] MEDS: AMINO ACIDS/PROTEIN HYDROLYS 30 ML LIQUID.PKT PO SCH ×2 (09:29→18:06)
--- NOTE | 2020-06-07 19:24 | PN ---
Progress Note (short form) - Note Progress Note: Current Medications Generic Name Dose Route Start Last Admin Trade Name Rae PRN Reason Stop Dose Admin Amantadine HCl 100 mg 05/30/20 10:00 06/07/20 09:27 Symmetrel - PO 100 mg DAILY NASIR Administration Amino Acids 30 ml 05/31/20 17:30 06/07/20 18:06 Prosource No Carb Liquid Pkt PO 30 ml BID@0800,1730 NASIR Administration Aspirin 81 mg 05/27/20 16:15 06/07/20 09:27 Ecotrin - PO 81 mg DAILY NASIR Administration Carbidopa/Levodopa 1 each 05/26/20 10:00 06/07/20 18:07 Sinemet 25/250 - PO 1 each Q4HPO NASIR Administration Docusate Sodium 100 mg 06/05/20 10:00 06/07/20 09:28 Colace - PO 100 mg DAILY NASIR Administration Enoxaparin Sodium 40 mg 05/26/20 10:00 06/07/20 09:28 Lovenox - SQ 40 mg DAILY NASIR Administration Entacapone 200 mg 05/26/20 10:00 06/07/20 18:07 Comtan - PO 200 mg Q4HPO NASIR Administration Lorazepam 0.5 mg 05/29/20 17:23 06/02/20 00:08 Ativan Injection - IVPUSH 0.5 mg BID PRN Administration ANXIETY Olanzapine 5 mg 06/02/20 22:00 06/06/20 22:48 Zyprexa - PO 5 mg HS NASIR Administration Olanzapine 2.5 mg 06/04/20 10:00 06/07/20 09:27 Zyprexa - PO 2.5 mg DAILY NASIR Administration Propranolol HCl 10 mg 06/02/20 14:00 06/07/20 13:08 Inderal - PO 10 mg TID NASIR Administration Senna 2 tab 05/26/20 20:20 Senna - PO HS PRN CONSTIPATION Discontinued Medications Generic Name Dose Route Start Last Admin Trade Name Freq PRN Reason Stop Dose Admin Alprazolam 0.5 mg 05/25/20 22:46 Xanax - PO Q12H PRN ANXIETY Alprazolam 0.25 mg 05/28/20 21:00 05/28/20 23:34 Xanax - PO 05/28/20 21:01 0.25 mg ONCE ONE Administration Amantadine HCl 100 mg 05/29/20 11:00 05/29/20 11:47 Symmetrel - PO 05/29/20 22:01 Not Given BID NASIR Bisacodyl 10 mg 05/26/20 20:20 05/26/20 21:49 Dulcolax Suppository - SC 05/26/20 20:21 Not Given ONCE ONE Carbidopa/Levodopa 1 each 05/25/20 23:00 05/26/20 02:15 Sinemet 25/250 - PO 1 each Q4H NASIR Administration Clonazepam 0.5 mg 05/30/20 18:00 06/01/20 06:34 Klonopin - PO Not Given BID@0600,1800 NASIR Entacapone 200 mg 05/25/20 22:57 05/25/20 23:37 Comtan - PO 05/25/20 22:58 200 mg Q4H STA Administration Escitalopram Oxalate 5 mg 05/27/20 10:00 05/27/20 10:44 Lexapro - PO 05/27/20 10:01 5 mg ONCE ONE Administration Escitalopram Oxalate 5 mg 06/06/20 10:00 06/07/20 09:28 Lexapro - PO 5 mg DAILY NASIR Administration Ceftriaxone Sodium 1 gm/ 50 mls @ 200 mls/hr 05/25/20 21:03 05/25/20 21:25 Dextrose IVPB 05/25/20 21:17 200 mls/hr ONCE ONE Administration Protocol Ceftriaxone Sodium 1 gm/ 50 mls @ 100 mls/hr 05/25/20 22:53 Dextrose IVPB 05/25/20 23:22 ONCE ONE Ceftriaxone Sodium 1 gm/ 50 mls @ 100 mls/hr 05/26/20 20:00 05/26/20 21:05 Dextrose IVPB 05/26/20 20:29 100 mls/hr DAILY ONE Administration Sodium Chloride 1,000 mls @ 75 mls/hr 05/25/20 23:15 05/26/20 02:15 1/2 Normal Saline IV 75 mls/hr ASDIR NASIR Administration Sodium Chloride 1,000 mls @ 42 mls/hr 05/27/20 00:19 05/27/20 00:51 1/2 Normal Saline IV 42 mls/hr ASDIR NASIR Administration Ceftriaxone Sodium 1 gm/ 100 mls @ 200 mls/hr 05/27/20 15:30 05/27/20 18:18 Dextrose IVPB Not Given DAILY NASIR Ceftriaxone Sodium 1 gm/ 50 mls @ 200 mls/hr 05/28/20 10:00 Dextrose IVPB DAILY NASIR Protocol Sodium Chloride 1,000 mls @ 50 mls/hr 05/27/20 15:30 05/27/20 17:29 Normal Saline - IV 05/28/20 15:23 50 mls/hr ASDIR NASIR Administration Ceftriaxone Sodium 1 gm/ 50 mls @ 200 mls/hr 05/27/20 16:30 06/02/20 09:22 Dextrose IVPB 200 mls/hr DAILY NASIR Administration Protocol Sodium Chloride 1,000 mls @ 125 mls/hr 05/29/20 12:30 05/29/20 12:41 Normal Saline - IV 125 mls/hr ASDIR NASIR Administration Sodium Chloride 1,000 mls @ 75 mls/hr 05/29/20 17:24 05/29/20 17:56 Normal Saline - IV 05/30/20 10:00 75 mls/hr ASDIR NASIR Administration Amino Acids 1,000 mls @ 42 mls/hr 05/30/20 10:00 05/31/20 10:04 Clinimix - IV 05/31/20 18:00 Not Given Q24H NASIR Dextrose/Sodium Chloride 1,000 mls @ 75 mls/hr 05/31/20 18:00 06/03/20 08:42 D5-1/2ns - IV Not Given ASDIR NASIR Dextrose/Sodium Chloride 1,000 mls @ 42 mls/hr 06/03/20 11:44 06/03/20 11:58 D5-1/2ns - IV 42 mls/hr ASDIR NASIR Administration Lorazepam 0.5 mg 06/01/20 04:30 06/01/20 05:15 Ativan Injection - IVPUSH 06/02/20 04:29 0.5 mg ONCE PRN Administration AGITATION Metoprolol Succinate 12.5 mg 05/29/20 10:00 05/30/20 09:20 Toprol Xl - PO 12.5 mg DAILY NASIR Administration Mirtazapine 7.5 mg 05/28/20 22:00 05/28/20 23:36 Remeron - PO 7.5 mg HS NASIR Administration Olanzapine 5 mg 06/01/20 22:00 06/01/20 22:21 Zyprexa - PO 5 mg HS NASIR Administration Olanzapine 7.5 mg 06/02/20 09:53 Zyprexa - PO HS NASIR Olanzapine 2.5 mg/ Olanzapine 7.5 mg 06/02/20 22:00 5 mg PO HS NASIR Olanzapine 2.5 mg 06/03/20 11:37 06/03/20 14:55 Zyprexa - PO 06/03/20 11:38 2.5 mg ONCE STA Administration Polyethylene Glycol 17 gm 05/26/20 18:48 Miralax (For Daily Use) - PO DAILY PRN CONSTIPATION Pramipexole Dihydrochloride 1.5 mg 05/25/20 23:00 05/29/20 15:30 Mirapex - PO Not Given TID NASIR Propranolol HCl 10 mg 05/30/20 22:00 Inderal - PO BID NASIR Propranolol HCl 10 mg 05/31/20 10:00 06/02/20 09:23 Inderal - PO 10 mg BID NASIR Administration Quetiapine Fumarate 25 mg 05/29/20 04:00 05/29/20 04:00 Seroquel - PO 05/29/20 04:01 25 mg ONCE ONE Administration Quetiapine Fumarate 25 mg 05/29/20 14:00 Seroquel - PO TID NASIR Quetiapine Fumarate 50 mg 06/01/20 10:00 Seroquel - PO BID NASIR Quetiapine Fumarate 50 mg 06/01/20 22:00 Seroquel - PO HS NASIR Laboratory Results - last 24 hr 06/07/20 06:55 Sodium 143 Potassium 4.6 Chloride 108 H Carbon Dioxide 32 Anion Gap 3 L BUN 24.6 H Creatinine 0.7 Est GFR (CKD-EPI)AfAm 101.86 Est GFR (CKD-EPI)NonAf 87.88 Random Glucose 126 H Calcium 8.7 Vital Signs Temperature 98.2 F 06/07/20 14:32 Pulse Rate 83 06/07/20 14:32 Respiratory Rate 18 06/07/20 14:32 Blood Pressure 96/60 06/07/20 14:32 O2 Sat by Pulse Oximetry (%) 94 L 06/07/20 10:19 CC: None `````````````````` skin--Buttock redness (Allyeven applied), IV site clean eyes--midline lungs--few rhonchi; unlabored heart --RR abd--NT, soft --with catheter in place neuro--drowsy, some mild rigidity; no tremors or choreiform movements noted at this time. `````````````````````````````` Summ > Delirium--multifactorial, better controlled with use of Zyprexa in split dosing. Has mood fluctuations. PLAN: cont Zyprexa as ordered, because he poses a significant risk of self harm w/o it. Use of SSRI may be producing paradoxical effects; Will d/c it. > Hypotension--mild; Fluctuates, Low BP precludes attempts to increase dose of the BB. > PD--advanced; nearing endstage with signif neuro-psych symptoms; degree to which he has improved with current regimen is difficult to gauge in this setting ; at this point; I feel he would benefit from PT at rehab to see if he can be improved upon. Overall, Prognosis remains poor. Family is aware. > Obst uropathy--requires Petty cath; otherwise cannot void, UA appears benign > UTI--resolved. > fail thrive--main underlying cause is progressing PD, and associated Neuro- Psych dysfunction. ``````````````````````` Dr Harmon Problem List - Problems (1) Acute urinary retention Code(s): R33.8 - OTHER RETENTION OF URINE (2) Bacteriuria with pyuria Code(s): R82.71 - BACTERIURIA; R82.81 - PYURIA (3) Parkinson disease, symptomatic Code(s): G20 - PARKINSON'S DISEASE (4) Abnormal EKG Code(s): R94.31 - ABNORMAL ELECTROCARDIOGRAM [ECG] [EKG] (5) Weight loss, unintentional Code(s): R63.4 - ABNORMAL WEIGHT LOSS (6) Declining mobility Code(s): Z74.09 - OTHER REDUCED MOBILITY (7) Anxiety and depression Code(s): F41.9 - ANXIETY DISORDER, UNSPECIFIED; F32.9 - MAJOR DEPRESSIVE DISORDER, SINGLE EPISODE, UNSPECIFIED (8) Dehydration Code(s): E86.0 - DEHYDRATION
[2020-06-07] MEDS ORDERED: PT OWN MED DRAWER 7, Y5N ONE (21:51)
[2020-06-08] MEDS: CARBIDOPA/LEVODOPA 25/250 TABLET (FP) PO SCH ×6 (01:04→22:15)
[2020-06-08] MEDS: OLANZapine 5 MG TABLET PO SCH ×2 (01:04→22:15)
[2020-06-08] MEDS: ENTACAPONE 200 MG TABLET PO SCH ×6 (01:04→22:15)
[2020-06-08] MEDS ORDERED: PT OWN MED DRAWER 7, Y5N ONE ×4 (06:44→22:10)
[2020-06-08 08:59] LABS: BLOOD UREA NITROGEN 23.8 mg/dL (7-18); CALCIUM 8.5 mg/dL (8.5-10.1); CREATININE 0.8 mg/dL (0.55-1.3); MAGNESIUM 2.2 mg/dL (1.8-2.4); POTASSIUM 4.3 mmol/L (3.5-5.1); TOT PROT 6.6 g/dl (6.4-8.2)
--- NOTE | 2020-06-08 10:01 | PN ---
Progress Note, Physician History of Present Illness: Pt is 84yo M with PMH Parkinson disease, BPH who presents with urinary retention. Patient was seen 2 weeks prior here for urinary retention and sent home with a Cooepr in place. Since then, he has followed up with a urologist (Dr. Corea?). Today, the urologist removed the cooper @9am, for the patient to attempt urination. Pt was unable to urinate today and had increased suprapubic pressure/pain, told by urologist to come to ED. Reports hx of constipation, but states that he has been having regular BM. [id number] states urine has appeared dark-yellow/orange, but denies any gross hematuria, clots, cloudiness to urine. Denies any f/c, chest pain, SOB, abdominal pain, n/v, loss of appetite. - Current Medication List Current Medications: Active Medications Amantadine HCl (Symmetrel -) 100 mg PO DAILY [facility] Last Admin: 06/07/20 09:27 Dose: 100 mg Documented by: Amino Acids (Prosource No Carb Liquid Pkt) 30 ml PO BID@0800,1730 [facility] Last Admin: 06/07/20 18:06 Dose: 30 ml Documented by: Aspirin (Ecotrin -) 81 mg PO DAILY [facility] Last Admin: 06/07/20 09:27 Dose: 81 mg Documented by: Carbidopa/Levodopa (Sinemet 25/250 -) 1 each PO Q4HPO [facility] Last Admin: 06/08/20 05:49 Dose: 1 each Documented by: Docusate Sodium (Colace -) 100 mg PO DAILY [facility] Last Admin: 06/07/20 09:28 Dose: 100 mg Documented by: Enoxaparin Sodium (Lovenox -) 40 mg SQ DAILY [facility] Last Admin: 06/07/20 09:28 Dose: 40 mg Documented by: Entacapone (Comtan -) 200 mg PO Q4HPO [facility] Last Admin: 06/08/20 05:48 Dose: 200 mg Documented by: Lorazepam (Ativan Injection -) 0.5 mg IVPUSH BID PRN PRN Reason: ANXIETY Last Admin: 06/02/20 00:08 Dose: 0.5 mg Documented by: Olanzapine (Zyprexa -) 5 mg PO [facility] Last Admin: 06/08/20 01:04 Dose: 5 mg Documented by: Olanzapine (Zyprexa -) 2.5 mg PO DAILY [facility] Last Admin: 06/07/20 09:27 Dose: 2.5 mg Documented by: Propranolol HCl (Inderal -) 10 mg PO TID [facility] Last Admin: 06/08/20 06:56 Dose: 10 mg Documented by: Senna (Senna -) 2 tab PO HS PRN PRN Reason: CONSTIPATION - Objective Vital Signs: Vital Signs Temperature 98.5 F 06/08/20 06:56 Pulse Rate 81 06/08/20 06:56 Respiratory Rate 18 06/08/20 06:56 Blood Pressure 110/69 06/08/20 06:56 O2 Sat by Pulse Oximetry (%) 94 L 06/08/20 05:25 Eyes: Yes: WNL, Conjunctiva Clear, EOM Intact HENT: Yes: WNL, Atraumatic, Normocephalic Neck: Yes: WNL, Supple, Trachea Midline Cardiovascular: Yes: WNL, Regular Rate and Rhythm Respiratory: Yes: WNL, Regular, CTA Bilaterally Gastrointestinal: Yes: WNL, Normal Bowel Sounds Genitourinary: Yes: WNL Musculoskeletal: Yes: WNL Extremities: Yes: WNL Edema: No Integumentary: Yes: WNL Labs: CBC, BMP 05/31/20 07:49 06/08/20 07:59 Problem List - Problems (1) Abnormal EKG Code(s): R94.31 - ABNORMAL ELECTROCARDIOGRAM [ECG] [EKG] (2) Acute urinary retention Code(s): R33.8 - OTHER RETENTION OF URINE (3) Anxiety and depression Code(s): F41.9 - ANXIETY DISORDER, UNSPECIFIED; F32.9 - MAJOR DEPRESSIVE DISORDER, SINGLE EPISODE, UNSPECIFIED (4) Bacteriuria with pyuria Code(s): R82.71 - BACTERIURIA; R82.81 - PYURIA (5) Declining mobility Code(s): Z74.09 - OTHER REDUCED MOBILITY (6) Dehydration Code(s): E86.0 - DEHYDRATION (7) Parkinson disease, symptomatic Code(s): G20 - PARKINSON'S DISEASE (8) Weight loss, unintentional Code(s): R63.4 - ABNORMAL WEIGHT LOSS (9) Hip fracture, left Code(s): S72.002A - FRACTURE OF UNSP PART OF NECK OF LEFT FEMUR, INIT Qualifiers: Encounter type: initial encounter Fracture type: closed Qualified Code(s): S72.002A - Fracture of unspecified part of neck of left femur, initial encounter for closed fracture (10) Urinary retention Code(s): R33.9 - RETENTION OF URINE, UNSPECIFIED Assessment/Plan Parkinson's disease mildly elevated TNIs No chest pain ECHO wnl EKG: septal "LA" no longer present (? lead placement precordially); +nonspecific T wave abnormalities HTN UTI anxiety/depression Plan; TNI 0.11-->0.05 Continue ASA 81 QD On metoprolol ER. On Sinemet. On antibiotics. Maintain hydration. Due to advance Parkinsons ds, poor mental status and inability to cooperate with advance testing I would recommend medical Rx.
[2020-06-08] MEDS: AMINO ACIDS/PROTEIN HYDROLYS 30 ML LIQUID.PKT PO SCH ×2 (10:29→17:32)
[2020-06-08] MEDS: DOCUSATE SODIUM 100 MG CAPSULE (FP) PO SCH (10:29)
[2020-06-08] MEDS: ASPIRIN COATED 81 MG TABLET.EC PO SCH (10:29)
[2020-06-08] MEDS: AMANTADINE HCL 100 MG TABLET PO SCH (10:30)
[2020-06-08] MEDS: ENOXAPARIN NA (PORCINE) 40 MG/0.4 ML DISP.SYRIN SQ SCH (10:30)
[2020-06-08] MEDS: OLANZapine 2.5 MG TABLET PO SCH (10:30)
--- NOTE | 2020-06-08 10:54 | PN ---
Progress Note (short form) - Note Progress Note: PULMONARY Denies shortness of breath, cough or wheezing. Vital Signs Period Temp Pulse Resp BP Sys/Bonner Pulse Ox Last 24 Hr 98 F-98.5 F 76-97 18-18 96-133/60-77 94-96 Gen: NAD at rest Heart: RRR Lung: decreased breath sounds at the bases Abd: soft, nontender Ext: no edema CBC, BMP 05/31/20 07:49 06/08/20 07:59 Active Medications Amantadine HCl (Symmetrel -) 100 mg PO DAILY [facility] Last Admin: 06/08/20 10:30 Dose: 100 mg Documented by: Amino Acids (Prosource No Carb Liquid Pkt) 30 ml PO BID@0800,1730 [facility] Last Admin: 06/08/20 10:29 Dose: 30 ml Documented by: Aspirin (Ecotrin -) 81 mg PO DAILY [facility] Last Admin: 06/08/20 10:29 Dose: 81 mg Documented by: Carbidopa/Levodopa (Sinemet 25/250 -) 1 each PO Q4HPO [facility] Last Admin: 06/08/20 10:30 Dose: 1 each Documented by: Docusate Sodium (Colace -) 100 mg PO DAILY [facility] Last Admin: 06/08/20 10:29 Dose: 100 mg Documented by: Enoxaparin Sodium (Lovenox -) 40 mg SQ DAILY [facility] Last Admin: 06/08/20 10:30 Dose: 40 mg Documented by: Entacapone (Comtan -) 200 mg PO Q4HPO [facility] Last Admin: 06/08/20 10:29 Dose: 200 mg Documented by: Lorazepam (Ativan Injection -) 0.5 mg IVPUSH BID PRN PRN Reason: ANXIETY Last Admin: 06/02/20 00:08 Dose: 0.5 mg Documented by: Olanzapine (Zyprexa -) 5 mg PO HS [facility] Last Admin: 06/08/20 01:04 Dose: 5 mg Documented by: Olanzapine (Zyprexa -) 2.5 mg PO DAILY [facility] Last Admin: 06/08/20 10:30 Dose: 2.5 mg Documented by: Propranolol HCl (Inderal -) 10 mg PO TID [facility] Last Admin: 06/08/20 06:56 Dose: 10 mg Documented by: Senna (Senna -) 2 tab PO HS PRN PRN Reason: CONSTIPATION A/P UTI treated COPD BPH Parkinsons - completed antibiotics - inhaled bronchodilators - O2 as needed - DVT prophylaxis
--- NOTE | 2020-06-08 15:36 | DS ---
Physical Examination Vital Signs: Vital Signs Temperature 98.8 F 06/08/20 14:42 Pulse Rate 90 06/08/20 14:42 Respiratory Rate 18 06/08/20 14:42 Blood Pressure 100/57 L 06/08/20 14:42 O2 Sat by Pulse Oximetry (%) 94 L 06/08/20 14:42 Constitutional: Yes: No Distress Eyes: Yes: Conjunctiva Clear Neck: Yes: Supple Cardiovascular: Yes: Regular Rate and Rhythm Respiratory: Yes: Rhonchi Gastrointestinal: Yes: Normal Bowel Sounds, Soft ...Rectal Exam: Yes: Deferred Renal/: Yes: Petty Present Musculoskeletal: Yes: Joint Stiffness Extremities: Yes: WNL Edema: No Integumentary: Yes: Pressure Ulcer (buttock; early stage) Neurological: Yes: Pre-Existing Deficit, Tremors (periods of confusion; able to speak but hypophonic; no gross motor deficits; displays varying degrees of choreiform movements, and episodic cog-wheel rigidity) ...Motor Strength: WNL Psychiatric: Yes: Other (episodic confusion) Labs: CBC, BMP 05/31/20 07:49 06/08/20 07:59 CMP Sodium 143 mmol/L (136-145) 06/08/20 07:59 Potassium 4.3 mmol/L (3.5-5.1) 06/08/20 07:59 Chloride 108 mmol/L (98-107) H 06/08/20 07:59 Carbon Dioxide 29 mmol/L (21-32) 06/08/20 07:59 Anion Gap 5 MMOL/L (8-16) L 06/08/20 07:59 BUN 23.8 mg/dL (7-18) H 06/08/20 07:59 Creatinine 0.8 mg/dL (0.55-1.3) 06/08/20 07:59 Est GFR (CKD-EPI)AfAm 96.42 06/08/20 07:59 Est GFR (CKD-EPI)NonAf 83.19 06/08/20 07:59 Random Glucose 160 mg/dL (74-106) H 06/08/20 07:59 Hemoglobin A1c % 5.8 % (4.2-6.3) 05/26/20 07:46 Lactic Acid 0.8 mmol/L (0.4-2.0) 05/25/20 21:20 Calcium 8.5 mg/dL (8.5-10.1) 06/08/20 07:59 Magnesium 2.2 mg/dL (1.8-2.4) 06/08/20 07:59 Total Bilirubin 1.0 mg/dL (0.2-1) 06/08/20 07:59 AST 33 U/L (15-37) 06/08/20 07:59 ALT 16 U/L (13-61) 06/08/20 07:59 Alkaline Phosphatase 100 U/L (45-117) 06/08/20 07:59 Creatine Kinase 125 U/L (26-308) 05/27/20 16:15 Creatine Kinase Index 3.5 % (0.0-5.0) 05/26/20 07:46 CK-MB (CK-2) 5.8 ng/mL (0.5-3.6) H 05/26/20 07:46 Troponin I 0.05 ng/ml (0.00-0.05) 05/28/20 05:22 Total Protein 6.6 g/dl (6.4-8.2) 06/08/20 07:59 Albumin 3.0 g/dl (3.4-5.0) L 06/08/20 07:59 Triglycerides 69 mg/dL (0-150) 05/28/20 05:22 Cholesterol 123 mg/dL (50-200) 05/28/20 05:22 Total LDL Cholesterol 58 mg/dL (5-100) 05/28/20 05:22 HDL Cholesterol 58 mg/dL (40-60) 05/28/20 05:22 TSH 1.00 uIU/ml (0.358-3.74) 05/27/20 08:10 Discharge Summary Problems reviewed: Yes Reason For Visit: COMPLICATED UTI,RETENSION OF URINE,SEPSIS Current Active Problems Abnormal EKG (resolved) elevated troponin Mild diastoilic dysfunction Acute urinary retention 2nd to Prostatism Prostatic enlargement Anxiety (chronic) Bacteriuria with pyuria (Acute) mild COPD Declining mobility (Acute) Dehydration (Acute) Parkinson disease, symptomatic (Acute) Weight loss, unintentional (Acute) fail thrive delirium cerebral dysfunction (not new) Buttock decubitus; early stage Mild Hyperglycemia, (A1c is 5.8) possible Glucose intolerance Mildly low Albumin Other Procedures: echo Hospital Course: 84 YO M with adv PD, admitted for acute Urinary retention with E Coli UTI. He had been under the care of his Urologist who had been attempting to remove his Petty as OP (but was not successful). The Pt was admitted, placed on IV Abs and hydrated. Other findings showed an AbNL EKG assoc with mildly high Troponins. He was sent to Telemetry but no interventions taken. Echo showed mild diastolic rigidity but preserved Ej Fx. The Ekg abnormality resolved. The Troponin normalized. He was placed on a low dose Beta gilmar. His course was complicated by severe episodes of delirium, such that he became a danger to self and others caring for him (striking out at staff). He requires IV sedatives but the remedy was temporary, He was seen by Psych who orded Olanzapine which was effective in reducing his confusion & delirium. He was also seen by Neurology who added symmetrel to his PD regimen with hope of reducing his tremors. He was also seen by Urology who did not elect to intervene surgically at this time. he was seen by [employer] who advised thickened liquids because of potential risk of aspiration in a state of delirium, His UTI cleared completely, but had several bouts of confusion (which were likely 2nd to paradoxical effect of the SSRI that he was placed on but was then stopped) which abated as of this time. Physically, he was able to ambulate under the guidance of PT using assistive device. His BP fluctuated from NL to low (not new); as of this time his VSS, and he is able to eat and drink w/o difficulty. Health Concerns: adv Parkinsons Plan of Treatment: PT and OT Goals: improve mobility, and include /family in the rehab process Condition: Improved - Instructions Diet, Activity, Other Instructions: Continue thicken liquids (to nectar) and soft diet Get speech therapy consult to see if he is safe for thin liquids. Feed Sitting up PT & OT eval DO NOT Remove Petty catheter (he cannot void due to BPH) Decubitus care check Finger stick glucose daily before breakfast (if high reduce glucose/sugar content with his meals) Give Parkinson's meds as ordered. provide nutrition drink such as Ensure Plus Referrals: Mahad Harmon MD [Primary Care Provider] - Disposition: SNF FACILITY - Home Medications Comprehensive Discharge Medication List: Ambulatory Orders Docusate Sodium [Colace -] 100 mg PO BID tab 03/10/17 Amantadine HCl [Symmetrel -] 100 mg PO DAILY tab 06/07/20 Amino Acids/Protein Hydrolys [Prosource No Carb Liquid Pkt] 30 ml PO BID@0800,1730 packet 06/07/20 Aspirin Coated [Ecotrin -] 81 mg PO DAILY tablet.ec 06/07/20 Carbidopa/Levodopa 25/250 [Sinemet 25/250 -] 1 each PO Q4HPO tablet 06/07/20 Docusate Sodium [Colace -] 100 mg PO DAILY capsule 06/07/20 Entacapone [Comtan -] 200 mg PO Q4HPO tablet 06/07/20 Olanzapine [Zyprexa -] 2.5 mg PO DAILY tablet 06/07/20 Olanzapine [Zyprexa -] 5 mg PO HS tablet 06/07/20 Sennosides [Senna -] 2 tab PO HS PRN tablet 06/07/20 propRANOLol HCL [Inderal -] 10 mg PO TID tablet 06/07/20 Albuterol Neb Tx BID Prn for cough
[2020-06-09] MEDS: ENTACAPONE 200 MG TABLET PO SCH ×4 (01:29→14:29)
[2020-06-09] MEDS: CARBIDOPA/LEVODOPA 25/250 TABLET (FP) PO SCH ×4 (01:29→14:28)
[2020-06-09] MEDS ORDERED: PT OWN MED DRAWER 7, Y5N ONE ×3 (09:23→14:21)
[2020-06-09] MEDS: DOCUSATE SODIUM 100 MG CAPSULE (FP) PO SCH (09:27)
[2020-06-09] MEDS: ASPIRIN COATED 81 MG TABLET.EC PO SCH (09:27)
[2020-06-09] MEDS: AMINO ACIDS/PROTEIN HYDROLYS 30 ML LIQUID.PKT PO SCH (09:28)
[2020-06-09] MEDS: ENOXAPARIN NA (PORCINE) 40 MG/0.4 ML DISP.SYRIN SQ SCH (09:28)
[2020-06-09] MEDS: OLANZapine 2.5 MG TABLET PO SCH (09:29)
[2020-06-09] MEDS: AMANTADINE HCL 100 MG TABLET PO SCH (09:29)
--- NOTE | 2020-06-09 10:38 | PN ---
Progress Note (short form) - Note Progress Note: PULMONARY No events overnight. Denies shortness of breath, cough or wheezing. Vital Signs Period Temp Pulse Resp BP Sys/Bonner Pulse Ox Last 24 Hr 98.2 F-98.8 F 76-90 18-18 100-117/57-78 94-95 Gen: NAD at rest Heart: RRR Lung: decreased breath sounds at the bases Abd: soft, nontender Ext: no edema CBC, BMP 05/31/20 07:49 06/08/20 07:59 Active Medications Amantadine HCl (Symmetrel -) 100 mg PO DAILY [facility] Last Admin: 06/09/20 09:29 Dose: 100 mg Documented by: Amino Acids (Prosource No Carb Liquid Pkt) 30 ml PO BID@0800,1730 [facility] Last Admin: 06/09/20 09:28 Dose: 30 ml Documented by: Aspirin (Ecotrin -) 81 mg PO DAILY [facility] Last Admin: 06/09/20 09:27 Dose: 81 mg Documented by: Carbidopa/Levodopa (Sinemet 25/250 -) 1 each PO Q4HPO [facility] Last Admin: 06/09/20 09:28 Dose: 1 each Documented by: Docusate Sodium (Colace -) 100 mg PO DAILY [facility] Last Admin: 06/09/20 09:27 Dose: 100 mg Documented by: Enoxaparin Sodium (Lovenox -) 40 mg SQ DAILY [facility] Last Admin: 06/09/20 09:28 Dose: 40 mg Documented by: Entacapone (Comtan -) 200 mg PO Q4HPO [facility] Last Admin: 06/09/20 09:29 Dose: 200 mg Documented by: Lorazepam (Ativan Injection -) 0.5 mg IVPUSH BID PRN PRN Reason: ANXIETY Last Admin: 06/02/20 00:08 Dose: 0.5 mg Documented by: Olanzapine (Zyprexa -) 5 mg PO HS [facility] Last Admin: 06/08/20 22:15 Dose: 5 mg Documented by: Olanzapine (Zyprexa -) 2.5 mg PO DAILY [facility] Last Admin: 06/09/20 09:29 Dose: 2.5 mg Documented by: Propranolol HCl (Inderal -) 10 mg PO TID [facility] Last Admin: 06/09/20 05:07 Dose: 10 mg Documented by: Senna (Senna -) 2 tab PO HS PRN PRN Reason: CONSTIPATION A/P UTI treated COPD BPH Parkinsons - completed antibiotics - inhaled bronchodilators - O2 as needed - DVT prophylaxis
[2020-06-09 15:03] VITALS: BP 113/64; PULSE 68; TEMP 98
== END 2020-06-09 15:34 | DRG 726 ==
LOC: JER 18:30 → JERBED 21:35 → J6S 05-26 04:12 → J4W 05-28 01:46 → J6S 05-30 15:54
PROVIDERS: ADMIT Internal Medicine; ATTEND Internal Medicine
PROC: 0TH Urinary System, Insertion (ICD-10-PCS; principal; 2020-06-02)
DX: N40.1 Benign prostatic hyperplasia with lower urinary tract symptoms (principal); Z68.1 Body mass index [BMI] 19.9 or less, adult; N39.0 Urinary tract infection, site not specified; G20 Parkinson's disease; R33.9 Retention of urine, unspecified; R26.9 Unspecified abnormalities of gait and mobility; R63.4 Abnormal weight loss; E86.0 Dehydration; J44.9 Chronic obstructive pulmonary disease, unspecified; R62.7 Adult failure to thrive; B96.20 Unspecified Escherichia coli [E. coli] as the cause of diseases classified elsewhere; F41.8 Other specified anxiety disorders; R41.0 Disorientation, unspecified; N13.9 Obstructive and reflux uropathy, unspecified; I95.9 Hypotension, unspecified; R73.9 Hyperglycemia, unspecified
CPT/HCPCS: 36415; 71045-TC-FY; 80048; 80053; 80061; 81003; 82550; 82553; 83036; 83605; 83721; 83735; 84443; 84484; 85025; 85027; 87040; 87086; 87186; 93005; 93010; 93306-TC; 97116-GP; 97162-GP; 99285-25; U0003

== ENCOUNTER 2021-07-11 11:53 | Inpatient (IN) | payer OTHER, MEDICARE ==
[2021-07-11 13:53] LABS: BASO % 0.6 % (0-2.0); EOS % 0.9 % (0-4.5); HEMATOCRIT 38.3 % (35.4-49); HEMOGLOBIN 13.1 GM/dL (11.7-16.9); MCH 32.3 pg (25.7-33.7); MEAN CELL VOLUME 94.7 fl (80-96); MEAN PLT VOLUME 6.8 fl (7.5-11.1); MONO % 11.1 % (3.8-10.2); NEUT % 62.4 % (42.8-82.8); PLATELET COUNT 265 10^3/uL (134-434); RBC 4.05 M/mm3 (4.00-5.60); RDW 13.2 % (11.9-15.9); WHITE BLOOD COUNT 8.9 K/mm3 (4.0-10.0)
[2021-07-11 14:00] LABS: EPI CELLS 14 /uL (0-25.1); HYALINE CASTS 0 /uL (0-3.1); PH,URINE 6.5 (5.0-8.0); URINE APPEARANCE CLEAR; URINE BACTERIA 62 /uL (0-1359); URINE BILIRUBIN NEGATIVE (NEGATIVE); URINE COLOR YELLOW; URINE GLUCOSE (UA) NEGATIVE (NEGATIVE); URINE KETONE NEGATIVE (NEGATIVE); URINE LEUK ESTERASE 2+ (NEGATIVE); URINE NITRITE NEGATIVE (NEGATIVE); URINE PROTEIN NEGATIVE (NEGATIVE); URINE RBC 6 /uL (0-23.9); URINE UROBILINOGEN 0.2 mg/dL (0.2-1.0); URINE WBC 80 /uL (0-25.8)
[2021-07-11 14:14] LABS: CHLORIDE 103 mmol/L (98-107); SODIUM 137 mmol/L (136-145)
[2021-07-11 14:16] LABS: CALCIUM 8.5 mg/dL (8.5-10.1)
[2021-07-11 14:17] LABS: ALBUMIN 3.2 g/dl (3.4-5.0); ANION GAP 6 MMOL/L (8-16); BLOOD UREA NITROGEN 11.6 mg/dL (7-18); CO2 28 mmol/L (21-32)
[2021-07-11 14:19] LABS: GLUCOSE,RANDOM 125 mg/dL (74-106)
[2021-07-11 14:20] LABS: CREATININE 0.9 mg/dL (0.55-1.3); SGOT/AST 14 U/L (15-37); SGPT/ALT 8 U/L (13-61)
[2021-07-11 14:22] LABS: TOT PROT 6.9 g/dl (6.4-8.2)
[2021-07-11 14:23] LABS: ALK PHOS 93 U/L (45-117)
[2021-07-11] MEDS ORDERED: ACETAMINOPHEN 1000 MG/100 ML VIAL IVPB ONE (16:50)
[2021-07-11] MEDS ORDERED: PEG 3350/NA SULF BICARB CL/KCL 4000 ML SOLN.RECON PO ONE (17:49)
[2021-07-11] MEDS ORDERED: MINERAL OIL ENEMA 133 ML ENEMA PR ONE (17:49)
[2021-07-11] MEDS ORDERED: CARBIDOPA/LEVODOPA 25/250 TABLET (FP) ONE ×2 (18:29→22:47)
[2021-07-11] MEDS: CARBIDOPA/LEVODOPA 25/250 TABLET (FP) PO SCH ×2 (19:18→23:00)
[2021-07-11] MEDS: OLANZapine 2.5 MG TABLET PO SCH (23:00)
[2021-07-12 00:19] VITALS: BMI 17.8
[2021-07-12] MEDS: ENTACAPONE 200 MG TABLET PO SCH ×7 (00:58→21:42)
[2021-07-12] MEDS ORDERED: PT OWN MED DRAWER 7, Y5N ONE ×6 (01:34→22:13)
[2021-07-12] MEDS: CARBIDOPA/LEVODOPA 25/250 TABLET (FP) PO SCH ×6 (01:36→21:42)
[2021-07-12 08:47] LABS: CALCIUM 8.3 mg/dL (8.5-10.1)
[2021-07-12 08:48] LABS: BLOOD UREA NITROGEN 11.6 mg/dL (7-18)
[2021-07-12 08:51] LABS: CREATININE 0.8 mg/dL (0.55-1.3)
[2021-07-12] MEDS ORDERED: FLU VACC QS2021-22(6MOS UP)/PF 60 MCG/0.5 ML SYRINGE IM ONE (10:00)
[2021-07-12] MEDS: ENOXAPARIN NA (PORCINE) 40 MG/0.4 ML DISP.SYRIN SQ SCH (10:29)
[2021-07-12] MEDS: AMANTADINE HCL 100 MG TABLET PO SCH (14:00)
[2021-07-12] MEDS: OLANZapine 2.5 MG TABLET PO SCH (21:42)
[2021-07-13] MEDS ORDERED: PT OWN MED DRAWER 7, Y5N ONE ×6 (01:49→21:01)
[2021-07-13] MEDS: CARBIDOPA/LEVODOPA 25/250 TABLET (FP) PO SCH ×6 (01:55→21:06)
[2021-07-13] MEDS: ENTACAPONE 200 MG TABLET PO SCH ×6 (01:55→21:25)
[2021-07-13] MEDS: ENOXAPARIN NA (PORCINE) 40 MG/0.4 ML DISP.SYRIN SQ SCH (09:34)
[2021-07-13] MEDS: OLANZapine 2.5 MG TABLET PO SCH (21:06)
[2021-07-14] MEDS ORDERED: PT OWN MED DRAWER 7, Y5N ONE ×6 (01:42→21:57)
[2021-07-14] MEDS: CARBIDOPA/LEVODOPA 25/250 TABLET (FP) PO SCH ×6 (01:43→21:04)
[2021-07-14] MEDS: ENTACAPONE 200 MG TABLET PO SCH ×6 (01:44→21:52)
[2021-07-14] MEDS: AMINO ACIDS/PROTEIN HYDROLYS 30 ML LIQUID.PKT PO SCH (08:55)
[2021-07-14 09:13] LABS: CALCIUM 8.4 mg/dL (8.5-10.1)
[2021-07-14 09:14] LABS: BLOOD UREA NITROGEN 16.2 mg/dL (7-18)
[2021-07-14 09:17] LABS: CREATININE 0.9 mg/dL (0.55-1.3)
[2021-07-14] MEDS: ENOXAPARIN NA (PORCINE) 40 MG/0.4 ML DISP.SYRIN SQ SCH (09:38)
[2021-07-14] MEDS: AMANTADINE HCL 100 MG TABLET PO SCH (09:39)
[2021-07-14] MEDS: OLANZapine 2.5 MG TABLET PO SCH (21:03)
[2021-07-15] MEDS ORDERED: PT OWN MED DRAWER 7, Y5N ONE ×6 (01:18→20:57)
[2021-07-15] MEDS: CARBIDOPA/LEVODOPA 25/250 TABLET (FP) PO SCH ×6 (01:22→21:17)
[2021-07-15] MEDS: ENTACAPONE 200 MG TABLET PO SCH ×6 (01:25→21:17)
[2021-07-15] MEDS: AMINO ACIDS/PROTEIN HYDROLYS 30 ML LIQUID.PKT PO SCH (08:37)
[2021-07-15] MEDS: ENOXAPARIN NA (PORCINE) 40 MG/0.4 ML DISP.SYRIN SQ SCH (11:02)
[2021-07-15] MEDS ORDERED: OLANZapine 2.5 MG TABLET PO ONE (13:45)
[2021-07-15 15:36] LABS: PH,URINE 8.5 (5.0-8.0); URINE APPEARANCE TURBID; URINE BILIRUBIN NEGATIVE (NEGATIVE); URINE COLOR DK YELLOW; URINE GLUCOSE (UA) NEGATIVE (NEGATIVE); URINE KETONE TRACE (NEGATIVE); URINE LEUK ESTERASE 2+ (NEGATIVE); URINE NITRITE NEGATIVE (NEGATIVE); URINE PROTEIN 2+ (NEGATIVE); URINE UROBILINOGEN 0.2 mg/dL (0.2-1.0)
[2021-07-15 15:50] LABS: EPI CELLS 19.1 /uL (0-25.1); HYALINE CASTS 37.03 /uL (0-3.1); URINE BACTERIA 76930.9 /uL (0-1359); URINE RBC 30.7 /uL (0-23.9); URINE WBC 488.6 /uL (0-25.8)
[2021-07-15] MEDS ORDERED: HALOPERIDOL LACTATE 5 MG/ML IM STA (16:11)
[2021-07-15] MEDS: ACETAMINOPHEN 500 MG TABLET (FP) PO PRN (21:16)
[2021-07-15] MEDS: POLYETHYLENE GLYCOL (HEALTHYLAX) 3350 17 GM PACKET PO SCH (21:16)
[2021-07-15] MEDS: OLANZapine 2.5 MG TABLET PO SCH (21:16)
[2021-07-16] MEDS: ENTACAPONE 200 MG TABLET PO SCH ×6 (02:30→22:07)
[2021-07-16] MEDS: CARBIDOPA/LEVODOPA 25/250 TABLET (FP) PO SCH ×6 (02:30→22:08)
[2021-07-16] MEDS ORDERED: PT OWN MED DRAWER 7, Y5N ONE ×2 (10:03→21:39)
[2021-07-16] MEDS: POLYETHYLENE GLYCOL (HEALTHYLAX) 3350 17 GM PACKET PO SCH ×2 (10:15→22:07)
[2021-07-16] MEDS: AMANTADINE HCL 100 MG TABLET PO SCH (10:15)
[2021-07-16] MEDS: ENOXAPARIN NA (PORCINE) 40 MG/0.4 ML DISP.SYRIN SQ SCH (10:15)
[2021-07-16] MEDS: AMINO ACIDS/PROTEIN HYDROLYS 30 ML LIQUID.PKT PO SCH (10:15)
[2021-07-16] MEDS: OLANZapine 2.5 MG TABLET PO SCH ×2 (10:16→22:08)
[2021-07-16] MEDS ORDERED: cefTRIAXone SODIUM 1 GM VIAL ONE (18:16)
[2021-07-16] MEDS ORDERED: DEXTROSE 5%-WATER - 50 ML IVPB ONE (18:17)
[2021-07-16] MEDS: CEFTRIAXONE 1 GM in DEXTROSE 5%-WATER - 50 ML IVPB SCH (18:22)
[2021-07-17] MEDS: CARBIDOPA/LEVODOPA 25/250 TABLET (FP) PO SCH ×6 (01:36→21:59)
[2021-07-17] MEDS: ENTACAPONE 200 MG TABLET PO SCH ×6 (01:36→21:59)
[2021-07-17] MEDS: AMINO ACIDS/PROTEIN HYDROLYS 30 ML LIQUID.PKT PO SCH (08:22)
[2021-07-17] MEDS ORDERED: DEXTROSE 5%-WATER - 50 ML IVPB ONE (10:04)
[2021-07-17] MEDS ORDERED: cefTRIAXone SODIUM 1 GM VIAL ONE (10:04)
[2021-07-17] MEDS ORDERED: PT OWN MED DRAWER 7, Y5N ONE ×4 (10:04→21:58)
[2021-07-17] MEDS: OLANZapine 2.5 MG TABLET PO SCH ×2 (10:09→21:59)
[2021-07-17] MEDS: DOCUSATE SODIUM 100 MG CAPSULE (FP) PO SCH (10:09)
[2021-07-17] MEDS: CEFTRIAXONE 1 GM in DEXTROSE 5%-WATER - 50 ML IVPB SCH (10:09)
[2021-07-17] MEDS: POLYETHYLENE GLYCOL (HEALTHYLAX) 3350 17 GM PACKET PO SCH ×2 (10:09→22:00)
[2021-07-17] MEDS: ENOXAPARIN NA (PORCINE) 40 MG/0.4 ML DISP.SYRIN SQ SCH (10:10)
[2021-07-18] MEDS ORDERED: PT OWN MED DRAWER 7, Y5N ONE ×4 (02:13→21:05)
[2021-07-18] MEDS: CARBIDOPA/LEVODOPA 25/250 TABLET (FP) PO SCH ×6 (02:18→21:13)
[2021-07-18] MEDS: ENTACAPONE 200 MG TABLET PO SCH ×6 (02:18→21:15)
[2021-07-18] MEDS ORDERED: cefTRIAXone SODIUM 1 GM VIAL ONE (10:44)
[2021-07-18] MEDS ORDERED: DEXTROSE 5%-WATER - 50 ML IVPB ONE (10:44)
[2021-07-18] MEDS: CEFTRIAXONE 1 GM in DEXTROSE 5%-WATER - 50 ML IVPB SCH (10:59)
[2021-07-18] MEDS: POLYETHYLENE GLYCOL (HEALTHYLAX) 3350 17 GM PACKET PO SCH ×2 (11:01→21:13)
[2021-07-18] MEDS: ENOXAPARIN NA (PORCINE) 40 MG/0.4 ML DISP.SYRIN SQ SCH (11:01)
[2021-07-18] MEDS: AMINO ACIDS/PROTEIN HYDROLYS 30 ML LIQUID.PKT PO SCH (11:01)
[2021-07-18] MEDS: OLANZapine 2.5 MG TABLET PO SCH ×2 (11:02→21:13)
[2021-07-18] MEDS: DOCUSATE SODIUM 100 MG CAPSULE (FP) PO SCH (11:02)
[2021-07-18] MEDS: AMANTADINE HCL 100 MG TABLET PO SCH (11:02)
[2021-07-19] MEDS ORDERED: PT OWN MED DRAWER 7, Y5N ONE ×6 (01:14→21:15)
[2021-07-19] MEDS: CARBIDOPA/LEVODOPA 25/250 TABLET (FP) PO SCH ×6 (01:16→21:17)
[2021-07-19] MEDS: ENTACAPONE 200 MG TABLET PO SCH ×6 (01:17→21:17)
[2021-07-19] MEDS ORDERED: cefTRIAXone SODIUM 1 GM VIAL ONE (09:54)
[2021-07-19] MEDS ORDERED: DEXTROSE 5%-WATER - 50 ML IVPB ONE (09:54)
[2021-07-19] MEDS: ENOXAPARIN NA (PORCINE) 40 MG/0.4 ML DISP.SYRIN SQ SCH (09:55)
[2021-07-19] MEDS: DOCUSATE SODIUM 100 MG CAPSULE (FP) PO SCH (09:56)
[2021-07-19] MEDS: AMINO ACIDS/PROTEIN HYDROLYS 30 ML LIQUID.PKT PO SCH (09:56)
[2021-07-19] MEDS: POLYETHYLENE GLYCOL (HEALTHYLAX) 3350 17 GM PACKET PO SCH ×2 (09:56→21:20)
[2021-07-19] MEDS: ACETAMINOPHEN 500 MG TABLET (FP) PO PRN (09:56)
[2021-07-19] MEDS: CEFTRIAXONE 1 GM in DEXTROSE 5%-WATER - 50 ML IVPB SCH (09:56)
[2021-07-19] MEDS: OLANZapine 2.5 MG TABLET PO SCH ×2 (09:58→21:17)
[2021-07-19 10:15] LABS: CREATININE 0.9 mg/dL (0.55-1.3)
[2021-07-19 12:33] LABS: URINE APPEARANCE CLOUDY; URINE BILIRUBIN NEGATIVE (NEGATIVE); URINE COLOR DK YELLOW; URINE GLUCOSE (UA) NEGATIVE (NEGATIVE); URINE KETONE TRACE (NEGATIVE)
[2021-07-19 12:34] LABS: URINE BACTERIA MANY /uL (0-1359); URINE LEUK ESTERASE 2+ (NEGATIVE); URINE NITRITE NEGATIVE (NEGATIVE); URINE PROTEIN TRACE (NEGATIVE); URINE RBC FEW /uL (0-23.9); URINE UROBILINOGEN 0.2 mg/dL (0.2-1.0); URINE WBC MODERATE /uL (0-25.8)
[2021-07-19 12:35] LABS: URINE CRYSTALS MANY PHOSPHATE /hpf
[2021-07-20] MEDS ORDERED: PT OWN MED DRAWER 7, Y5N ONE ×6 (01:48→21:11)
[2021-07-20] MEDS: CARBIDOPA/LEVODOPA 25/250 TABLET (FP) PO SCH ×6 (01:50→21:19)
[2021-07-20] MEDS: ENTACAPONE 200 MG TABLET PO SCH ×6 (01:50→21:18)
[2021-07-20] MEDS ORDERED: DEXTROSE 5%-WATER - 50 ML IVPB ONE (08:57)
[2021-07-20] MEDS ORDERED: cefTRIAXone SODIUM 1 GM VIAL ONE (08:57)
[2021-07-20] MEDS: CEFTRIAXONE 1 GM in DEXTROSE 5%-WATER - 50 ML IVPB SCH (09:01)
[2021-07-20] MEDS: ENOXAPARIN NA (PORCINE) 40 MG/0.4 ML DISP.SYRIN SQ SCH (09:03)
[2021-07-20] MEDS: POLYETHYLENE GLYCOL (HEALTHYLAX) 3350 17 GM PACKET PO SCH ×2 (09:03→21:19)
[2021-07-20] MEDS: DOCUSATE SODIUM 100 MG CAPSULE (FP) PO SCH (09:03)
[2021-07-20] MEDS: AMANTADINE HCL 100 MG TABLET PO SCH (09:04)
[2021-07-20] MEDS: OLANZapine 2.5 MG TABLET PO SCH ×2 (09:04→22:24)
[2021-07-20] MEDS: AMINO ACIDS/PROTEIN HYDROLYS 30 ML LIQUID.PKT PO SCH (09:04)
[2021-07-20] MEDS: CEFUROXIME AXETIL 500 MG TABLET PO SCH (21:19)
[2021-07-21] MEDS ORDERED: PT OWN MED DRAWER 7, Y5N ONE ×2 (01:34→10:16)
[2021-07-21] MEDS: ENTACAPONE 200 MG TABLET PO SCH ×5 (01:36→17:43)
[2021-07-21] MEDS: CARBIDOPA/LEVODOPA 25/250 TABLET (FP) PO SCH ×5 (01:36→17:43)
[2021-07-21] MEDS: AMINO ACIDS/PROTEIN HYDROLYS 30 ML LIQUID.PKT PO SCH (08:50)
[2021-07-21] MEDS: CEFUROXIME AXETIL 500 MG TABLET PO SCH (10:35)
[2021-07-21] MEDS: ENOXAPARIN NA (PORCINE) 40 MG/0.4 ML DISP.SYRIN SQ SCH (10:35)
[2021-07-21] MEDS: DOCUSATE SODIUM 100 MG CAPSULE (FP) PO SCH (10:35)
[2021-07-21] MEDS: OLANZapine 2.5 MG TABLET PO SCH (10:36)
[2021-07-21] MEDS: POLYETHYLENE GLYCOL (HEALTHYLAX) 3350 17 GM PACKET PO SCH (10:43)
[2021-07-21 18:37] VITALS: BP 100/63; PULSE 100; TEMP 97.9
== END 2021-07-21 20:15 | DRG 389 ==
LOC: JER 11:53 → JERBED 16:24 → J6S 23:33
PROVIDERS: ADMIT Internal Medicine; ATTEND Internal Medicine
DX: K56.41 Fecal impaction (principal); F02.81 Dementia in other diseases classified elsewhere, unspecified severity, with behavioral disturbance; N40.0 Benign prostatic hyperplasia without lower urinary tract symptoms; G20 Parkinson's disease; F41.8 Other specified anxiety disorders; K76.89 Other specified diseases of liver; I45.10 Unspecified right bundle-branch block; Z74.09 Other reduced mobility; R00.0 Tachycardia, unspecified; R82.71 Bacteriuria
CPT/HCPCS: 36415; 71045-TC-FY; 74018-TC-FY; 74177-TC; 80048; 80053; 81003; 82550; 82962; 83036; 83735; 84443; 84484; 85025; 87086; 90686; 93005; 93010; 97116-GP; 97161-GP; 99285-25; C9803; G0008; J0131; Q9967; U0003; U0005

== ENCOUNTER 2023-04-12 19:26 | Inpatient (IN) | payer OTHER, MEDICARE ==
[2023-04-12 19:32] VITALS: BMI 17.2
[2023-04-12 20:46] LABS: BASO % 0.3 % (0-2.0); EOS % 0.1 % (0-4.5); HEMATOCRIT 37.3 % (35.4-49); HEMOGLOBIN 12.5 GM/dL (11.7-16.9); LYMPH % 6.2 % (8-40); MCH 30.7 pg (25.7-33.7); MCHC 33.4 g/dl (32.0-35.9); MEAN CELL VOLUME 91.8 fl (80-96); MONO % 7.5 % (3.8-10.2); NEUT % 85.9 % (42.8-82.8); PLATELET COUNT 231 10^3/uL (134-434); RBC 4.07 M/mm3 (4.00-5.60); RDW 13.1 % (11.9-15.9)
[2023-04-12 20:55] LABS: INR 1.1 (0.83-1.09); PROTHROMBIN TIME (PATIENT) 12.8 SEC (9.7-13.0)
[2023-04-12 20:56] LABS: CALCIUM 9.2 mg/dL (8.5-10.1)
[2023-04-12 20:57] LABS: ALBUMIN 3.6 g/dl (3.4-5.0); BLOOD UREA NITROGEN 14.5 mg/dL (7-18)
[2023-04-12 20:58] LABS: ACTIVATED PTT 29.6 SECONDS (25.2-36.5)
[2023-04-12 21:00] LABS: CREATININE 0.9 mg/dL (0.55-1.3); EPI CELLS 7 /uL (0-25.1); HYALINE CASTS 7 /uL (0-3.1); URINE APPEARANCE CLEAR; URINE BACTERIA 2130 /uL (0-1359); URINE BILIRUBIN 1+ (NEGATIVE); URINE COLOR RED; URINE GLUCOSE (UA) NEGATIVE (NEGATIVE); URINE KETONE NEGATIVE (NEGATIVE); URINE LEUK ESTERASE 3+ (NEGATIVE); URINE NITRITE POSITIVE (NEGATIVE); URINE PROTEIN 3+ (NEGATIVE); URINE UROBILINOGEN 0.2 mg/dL (0.2-1.0); URINE WBC 1920 /uL (0-25.8)
[2023-04-12 21:01] LABS: TOT PROT 7.2 g/dl (6.4-8.2)
[2023-04-12 21:02] LABS: BILIRUBIN,TOTAL 0.9 mg/dL (0.2-1)
[2023-04-12] MEDS ORDERED: CEFTRIAXONE 1,000 MG in DEXTROSE 5%-WATER - 50 ML IVPB ONE (21:12)
[2023-04-12] MEDS ORDERED: CEFTRIAXONE 1 GM/50 ML BAG ONE (21:17)
[2023-04-12] MEDS ORDERED: DOCUSATE SODIUM 100 MG CAPSULE (FP) PO PRN (21:50)
[2023-04-12] MEDS ORDERED: MELATONIN 5 MG TABLETS PO ONE (23:45)
[2023-04-12] MEDS ORDERED: CARBIDOPA/LEVODOPA 25/250 TABLET (FP) PO ONE (23:45)
[2023-04-13] MEDS ORDERED: SODIUM CHLORIDE 500 ML IV STA (02:14)
[2023-04-13] MEDS ORDERED: ACETAMINOPHEN 1000 MG/100 ML BAG IVPB ONE (02:17)
[2023-04-13 02:52] LABS: BASO % 0.5 % (0-2.0); HEMATOCRIT 35.8 % (35.4-49); HEMOGLOBIN 12.1 GM/dL (11.7-16.9); LYMPH % 11.5 % (8-40); MCHC 33.9 g/dl (32.0-35.9); MEAN CELL VOLUME 91.4 fl (80-96); MEAN PLT VOLUME 6.7 fl (7.5-11.1); MONO % 9.4 % (3.8-10.2); NEUT % 78.6 % (42.8-82.8); PLATELET COUNT 232 10^3/uL (134-434); RBC 3.91 M/mm3 (4.00-5.60); RDW 13.1 % (11.9-15.9); WHITE BLOOD COUNT 14.2 K/mm3 (4.0-10.0)
[2023-04-13 04:10] LABS: POTASSIUM 4.1 mmol/L (3.5-5.1)
[2023-04-13 04:13] LABS: CALCIUM 9.1 mg/dL (8.5-10.1); MAGNESIUM 1.9 mg/dL (1.8-2.4)
[2023-04-13 04:14] LABS: BLOOD UREA NITROGEN 12.5 mg/dL (7-18)
[2023-04-13 04:16] LABS: PHOSPHOROUS 3.1 mg/dL (2.5-4.9)
[2023-04-13 04:17] LABS: CREATININE 0.8 mg/dL (0.55-1.3)
[2023-04-13 07:57] LABS: BASO % 0.3 % (0-2.0); EOS % 0.3 % (0-4.5); HEMOGLOBIN 11.4 GM/dL (11.7-16.9); LYMPH % 20.3 % (8-40); MCH 31.5 pg (25.7-33.7); MCHC 33.7 g/dl (32.0-35.9); MEAN CELL VOLUME 93.6 fl (80-96); MEAN PLT VOLUME 7.4 fl (7.5-11.1); MONO % 11.5 % (3.8-10.2); NEUT % 67.6 % (42.8-82.8); PLATELET COUNT 220 10^3/uL (134-434); RBC 3.63 M/mm3 (4.00-5.60); RDW 13.2 % (11.9-15.9); WHITE BLOOD COUNT 10.7 K/mm3 (4.0-10.0)
[2023-04-13] MEDS ORDERED: ACETAMINOPHEN 1000 MG/100 ML BAG IVPB PRN (08:30)
[2023-04-13] MEDS: CARBIDOPA/LEVODOPA 25/250 TABLET (FP) PO SCH ×5 (10:34→22:52)
[2023-04-13] MEDS: ENTACAPONE 200 MG TABLET PO SCH ×5 (10:35→22:52)
[2023-04-13] MEDS ORDERED: OLANZapine 7.5 MG TABLET PO SCH (22:00)
[2023-04-13] MEDS: CEFTRIAXONE 1 GM in DEXTROSE 5%-WATER - 50 ML IVPB SCH (22:52)
[2023-04-13] MEDS: OLANZAPINE 5 MG, OLANZAPINE 2.5 MG PO SCH (22:52)
[2023-04-14] MEDS: CARBIDOPA/LEVODOPA 25/250 TABLET (FP) PO SCH ×6 (02:06→22:36)
[2023-04-14] MEDS: ENTACAPONE 200 MG TABLET PO SCH ×6 (02:06→22:35)
[2023-04-14] MEDS: OLANZAPINE 5 MG, OLANZAPINE 2.5 MG PO SCH (22:35)
[2023-04-14] MEDS: CEFTRIAXONE 1 GM in DEXTROSE 5%-WATER - 50 ML IVPB SCH (22:36)
[2023-04-15] MEDS: CARBIDOPA/LEVODOPA 25/250 TABLET (FP) PO SCH ×6 (02:16→21:46)
[2023-04-15] MEDS: ENTACAPONE 200 MG TABLET PO SCH ×6 (02:16→21:46)
[2023-04-15] MEDS: OLANZAPINE 5 MG, OLANZAPINE 2.5 MG PO SCH (21:44)
[2023-04-15] MEDS: CEFTRIAXONE 1 GM in DEXTROSE 5%-WATER - 50 ML IVPB SCH (21:45)
[2023-04-16] MEDS: CARBIDOPA/LEVODOPA 25/250 TABLET (FP) PO SCH ×6 (01:14→22:13)
[2023-04-16] MEDS: ENTACAPONE 200 MG TABLET PO SCH ×6 (01:14→22:12)
[2023-04-16 07:19] LABS: BASO % 0.6 % (0-2.0); EOS % 1.4 % (0-4.5); HEMATOCRIT 31.7 % (35.4-49); HEMOGLOBIN 10.7 GM/dL (11.7-16.9); LYMPH % 23.8 % (8-40); MCH 31.2 pg (25.7-33.7); MCHC 33.7 g/dl (32.0-35.9); MEAN CELL VOLUME 92.8 fl (80-96); MEAN PLT VOLUME 7.1 fl (7.5-11.1); MONO % 7.7 % (3.8-10.2); NEUT % 66.5 % (42.8-82.8); PLATELET COUNT 259 10^3/uL (134-434); RBC 3.42 M/mm3 (4.00-5.60); RDW 13.5 % (11.9-15.9); WHITE BLOOD COUNT 7.9 K/mm3 (4.0-10.0)
[2023-04-16 07:25] LABS: POTASSIUM 3.7 mmol/L (3.5-5.1)
[2023-04-16 07:27] LABS: CALCIUM 8.9 mg/dL (8.5-10.1)
[2023-04-16 07:28] LABS: ALBUMIN 3.2 g/dl (3.4-5.0); BLOOD UREA NITROGEN 12.1 mg/dL (7-18)
[2023-04-16 07:31] LABS: CREATININE 0.7 mg/dL (0.55-1.3)
[2023-04-16 07:33] LABS: BILIRUBIN,TOTAL 0.6 mg/dL (0.2-1); TOT PROT 6.6 g/dl (6.4-8.2)
[2023-04-16] MEDS ORDERED: SODIUM CHLORIDE 0.9% 500 ML INFUS.BAG IV ONE (10:58)
[2023-04-16] MEDS: CLOTRIMAZOLE 1% CREAM TP SCH ×2 (14:20→22:24)
[2023-04-16] MEDS: POLYETHYLENE GLYCOL (HEALTHYLAX) 3350 17 GM PACKET PO SCH (14:20)
[2023-04-16] MEDS: OLANZAPINE 5 MG, OLANZAPINE 2.5 MG PO SCH (22:12)
[2023-04-16] MEDS: CEFTRIAXONE 1 GM in DEXTROSE 5%-WATER - 50 ML IVPB SCH (22:12)
[2023-04-17] MEDS: ENTACAPONE 200 MG TABLET PO SCH ×6 (01:20→22:03)
[2023-04-17] MEDS: CARBIDOPA/LEVODOPA 25/250 TABLET (FP) PO SCH ×6 (01:21→22:03)
[2023-04-17] MEDS ORDERED: SODIUM CHLORIDE 250 ML IV STA (02:08)
[2023-04-17] MEDS: CLOTRIMAZOLE 1% CREAM TP SCH ×2 (11:06→22:12)
[2023-04-17] MEDS: POLYETHYLENE GLYCOL (HEALTHYLAX) 3350 17 GM PACKET PO SCH (11:06)
[2023-04-17] MEDS: OLANZAPINE 5 MG, OLANZAPINE 2.5 MG PO SCH (22:02)
[2023-04-17] MEDS: CEFTRIAXONE 1 GM in DEXTROSE 5%-WATER - 50 ML IVPB SCH (22:05)
[2023-04-18] MEDS: ENTACAPONE 200 MG TABLET PO SCH ×4 (01:29→14:33)
[2023-04-18] MEDS: CARBIDOPA/LEVODOPA 25/250 TABLET (FP) PO SCH ×4 (01:29→14:33)
[2023-04-18] MEDS: CLOTRIMAZOLE 1% CREAM TP SCH (10:57)
[2023-04-18] MEDS: POLYETHYLENE GLYCOL (HEALTHYLAX) 3350 17 GM PACKET PO SCH (10:57)
[2023-04-18 11:42] VITALS: RESP 18
[2023-04-18 15:42] VITALS: BP 107/62; PULSE 104; TEMP 99
== END 2023-04-18 16:30 | DRG 698 ==
LOC: JER 19:26 → JERBED 21:11 → J4S 22:27
PROVIDERS: ADMIT Internal Medicine; ATTEND Internal Medicine
DX: T83.511A Infection and inflammatory reaction due to indwelling urethral catheter, initial encounter (principal); R53.2 Functional quadriplegia; N13.30 Unspecified hydronephrosis; N39.0 Urinary tract infection, site not specified; R31.0 Gross hematuria; I10 Essential (primary) hypertension; J44.9 Chronic obstructive pulmonary disease, unspecified; G20 Parkinson's disease; B96.20 Unspecified Escherichia coli [E. coli] as the cause of diseases classified elsewhere; N40.1 Benign prostatic hyperplasia with lower urinary tract symptoms; N32.0 Bladder-neck obstruction; R33.9 Retention of urine, unspecified; Y83.9 Surgical procedure, unspecified as the cause of abnormal reaction of the patient, or of later complication, without mention of misadventure at the time of the procedure
CPT/HCPCS: 36415; 74230-TC-FY; 76775-TC; 76856-TC; 80048; 80053; 81003; 83735; 84100; 85025; 85610; 85730; 86850; 86900; 86901; 87086; 87186; 87635; 92611-GN; 93005; 93010; 97161-GP; 99285-25

== ENCOUNTER 2023-07-07 16:15 | Inpatient (IN) | payer OTHER, MEDICARE ==
[2023-07-07 16:36] VITALS: BMI 18.8
[2023-07-07 19:20] LABS: BASO % 0.5 % (0-2.0); EOS % 0.2 % (0-4.5); EPI CELLS 0 /uL (0-25.1); HEMATOCRIT 31.3 % (35.4-49); HEMOGLOBIN 10.2 GM/dL (11.7-16.9); HYALINE CASTS 0 /uL (0-3.1); LYMPH % 13.4 % (8-40); MCH 24.1 pg (25.7-33.7); MCHC 32.5 g/dl (32.0-35.9); MEAN CELL VOLUME 74.2 fl (80-96); MEAN PLT VOLUME 5.9 fl (7.5-11.1); MONO % 7.6 % (3.8-10.2); NEUT % 78.3 % (42.8-82.8); PH,URINE 6.5 (5.0-8.0); PLATELET COUNT 560 10^3/uL (134-434); RBC 4.22 M/mm3 (4.00-5.60); RDW 18.5 % (11.9-15.9); URINE APPEARANCE TURBID; URINE BACTERIA 3254 /uL (0-1359); URINE BILIRUBIN NEGATIVE (NEGATIVE); URINE COLOR DK YELLOW; URINE GLUCOSE (UA) NEGATIVE (NEGATIVE); URINE KETONE TRACE (NEGATIVE); URINE LEUK ESTERASE 3+ (NEGATIVE); URINE NITRITE NEGATIVE (NEGATIVE); URINE PROTEIN 2+ (NEGATIVE); URINE RBC 503 /uL (0-23.9); URINE UROBILINOGEN 0.2 mg/dL (0.2-1.0); URINE WBC 3293 /uL (0-25.8); WHITE BLOOD COUNT 14.5 K/mm3 (4.0-10.0)
[2023-07-07 19:39] LABS: CHLORIDE 102 mmol/L (98-107); SODIUM 128 mmol/L (136-145)
[2023-07-07 19:42] LABS: ALBUMIN 2.4 g/dl (3.4-5.0); BLOOD UREA NITROGEN 17.8 mg/dL (7-18); CALCIUM 7.9 mg/dL (8.5-10.1); CO2 25 mmol/L (21-32)
[2023-07-07 19:43] LABS: GLUCOSE,RANDOM 179 mg/dL (74-106)
[2023-07-07 19:46] LABS: CREATININE 0.8 mg/dL (0.55-1.3); SGOT/AST 80 U/L (15-37)
[2023-07-07 19:47] LABS: TOT PROT 8.4 g/dl (6.4-8.2)
[2023-07-07 19:48] LABS: ALK PHOS 111 U/L (45-117)
[2023-07-07 19:57] LABS: ANION GAP 1 MMOL/L (8-16); POTASSIUM > 10.0 mmol/L (3.5-5.1); SGPT/ALT 12 U/L (13-61)
[2023-07-07] MEDS ORDERED: CEFTRIAXONE 1,000 MG in DEXTROSE 5%-WATER - 50 ML IVPB ONE (20:28)
[2023-07-07] MEDS ORDERED: CEFTRIAXONE 1 GM/50 ML BAG ONE (20:31)
[2023-07-07 21:17] LABS: POTASSIUM 5.8 mmol/L (3.5-5.1)
[2023-07-07 21:18] LABS: CALCIUM 8.3 mg/dL (8.5-10.1)
[2023-07-07 21:19] LABS: BLOOD UREA NITROGEN 17.8 mg/dL (7-18)
[2023-07-07 21:22] LABS: CREATININE 0.7 mg/dL (0.55-1.3)
[2023-07-08 07:25] LABS: BASO % 0.9 % (0-2.0); EOS % 2.5 % (0-4.5); HEMOGLOBIN 9.2 GM/dL (11.7-16.9); LYMPH % 22.2 % (8-40); MCHC 31.7 g/dl (32.0-35.9); MEAN CELL VOLUME 75.6 fl (80-96); MEAN PLT VOLUME 6.3 fl (7.5-11.1); MONO % 10.1 % (3.8-10.2); NEUT % 64.3 % (42.8-82.8); PLATELET COUNT 545 10^3/uL (134-434); RBC 3.84 M/mm3 (4.00-5.60); RDW 17.9 % (11.9-15.9); WHITE BLOOD COUNT 12.3 K/mm3 (4.0-10.0)
[2023-07-08 09:57] LABS: ALBUMIN 2.4 g/dl (3.4-5.0); BILIRUBIN,TOTAL 0.7 mg/dL (0.2-1); BLOOD UREA NITROGEN 16.2 mg/dL (7-18); CALCIUM 8.4 mg/dL (8.5-10.1); CREATININE 0.6 mg/dL (0.55-1.3); POTASSIUM 4.3 mmol/L (3.5-5.1); TOT PROT 7.2 g/dl (6.4-8.2)
[2023-07-08] MEDS ORDERED: CARBIDOPA/LEVODOPA 25/250 TABLET (FP) PO SCH (10:00)
[2023-07-08] MEDS: TAMSULOSIN HCL 0.4 MG CAP PO SCH (10:04)
[2023-07-08] MEDS: SODIUM CHLORIDE 1,000 ML IV SCH (10:04)
[2023-07-08] MEDS: CEFTRIAXONE 1 GM in DEXTROSE 5%-WATER - 50 ML IVPB SCH (10:04)
[2023-07-08] MEDS: CARBIDOPA/LEVODOPA 25/250 TABLET (FP) PO SCH ×3 (13:21→22:47)
[2023-07-08] MEDS: ENTACAPONE 200 MG TABLET PO SCH ×3 (13:21→22:47)
[2023-07-08] MEDS: ASCORBIC ACID 500 MG TABLET (FP) PO SCH (17:14)
[2023-07-08] MEDS: POLYETHYLENE GLYCOL (HEALTHYLAX) 3350 17 GM PACKET PO SCH (22:46)
[2023-07-08] MEDS: OLANZapine 5 MG TABLET PO SCH (22:46)
[2023-07-08] MEDS: HEPARIN NA (PORCINE) 5,000 UNITS/ML 1ML VIAL SQ SCH (22:46)
[2023-07-09] MEDS: ENTACAPONE 200 MG TABLET PO SCH ×6 (01:19→21:48)
[2023-07-09] MEDS: CARBIDOPA/LEVODOPA 25/250 TABLET (FP) PO SCH ×6 (01:20→21:48)
[2023-07-09] MEDS: ASCORBIC ACID 500 MG TABLET (FP) PO SCH ×2 (06:14→17:06)
[2023-07-09] MEDS: TAMSULOSIN HCL 0.4 MG CAP PO SCH (08:22)
[2023-07-09] MEDS: SODIUM CHLORIDE 1,000 ML IV SCH (08:24)
[2023-07-09] MEDS: DOCUSATE SODIUM 100 MG CAPSULE (FP) PO SCH (09:24)
[2023-07-09] MEDS: POLYETHYLENE GLYCOL (HEALTHYLAX) 3350 17 GM PACKET PO SCH ×2 (09:25→21:47)
[2023-07-09] MEDS: ASPIRIN COATED 81 MG TABLET.EC PO SCH (09:25)
[2023-07-09] MEDS: CEFTRIAXONE 1 GM in DEXTROSE 5%-WATER - 50 ML IVPB SCH (09:25)
[2023-07-09] MEDS: HEPARIN NA (PORCINE) 5,000 UNITS/ML 1ML VIAL SQ SCH ×2 (09:25→21:49)
[2023-07-09] MEDS: OLANZapine 5 MG TABLET PO SCH (21:47)
[2023-07-10] MEDS: CARBIDOPA/LEVODOPA 25/250 TABLET (FP) PO SCH ×6 (02:36→22:31)
[2023-07-10] MEDS: ENTACAPONE 200 MG TABLET PO SCH ×6 (02:36→22:31)
[2023-07-10] MEDS: ASCORBIC ACID 500 MG TABLET (FP) PO SCH ×2 (06:29→17:07)
[2023-07-10] MEDS: AMINO ACIDS/PROTEIN HYDROLYS 30 ML LIQUID.PKT PO SCH (08:28)
[2023-07-10] MEDS: TAMSULOSIN HCL 0.4 MG CAP PO SCH (08:28)
[2023-07-10 08:31] LABS: BASO % 0.9 % (0-2.0); EOS % 1.9 % (0-4.5); HEMATOCRIT 26.3 % (35.4-49); HEMOGLOBIN 8.3 GM/dL (11.7-16.9); LYMPH % 27.1 % (8-40); MCH 23.9 pg (25.7-33.7); MCHC 31.7 g/dl (32.0-35.9); MEAN CELL VOLUME 75.3 fl (80-96); MEAN PLT VOLUME 6.1 fl (7.5-11.1); MONO % 10.3 % (3.8-10.2); NEUT % 59.8 % (42.8-82.8); PLATELET COUNT 509 10^3/uL (134-434); RBC 3.49 M/mm3 (4.00-5.60); RDW 17.9 % (11.9-15.9); WHITE BLOOD COUNT 6.9 K/mm3 (4.0-10.0)
[2023-07-10] MEDS: SODIUM CHLORIDE 1,000 ML IV SCH ×2 (08:33→17:07)
[2023-07-10] MEDS: POLYETHYLENE GLYCOL (HEALTHYLAX) 3350 17 GM PACKET PO SCH ×2 (09:06→22:32)
[2023-07-10] MEDS: HEPARIN NA (PORCINE) 5,000 UNITS/ML 1ML VIAL SQ SCH ×2 (09:07→22:32)
[2023-07-10] MEDS: DOCUSATE SODIUM 100 MG CAPSULE (FP) PO SCH (09:07)
[2023-07-10] MEDS: ASPIRIN COATED 81 MG TABLET.EC PO SCH (09:07)
[2023-07-10] MEDS: CEFTRIAXONE 1 GM in DEXTROSE 5%-WATER - 50 ML IVPB SCH (09:10)
[2023-07-10] MEDS: MULTIVITAMINS (DAILY MVI) TABLET (FP) PO SCH (09:14)
[2023-07-10 09:19] LABS: CHLORIDE 108 mmol/L (98-107); POTASSIUM 4.1 mmol/L (3.5-5.1); SODIUM 140 mmol/L (136-145)
[2023-07-10 09:26] LABS: ALBUMIN 2.2 g/dl (3.4-5.0); ANION GAP 6 MMOL/L (8-16); CO2 26 mmol/L (21-32)
[2023-07-10 09:27] LABS: BLOOD UREA NITROGEN 9.6 mg/dL (7-18); GLUCOSE,RANDOM 130 mg/dL (74-106)
[2023-07-10 09:29] LABS: CREATININE 0.5 mg/dL (0.55-1.3); SGOT/AST 9 U/L (15-37)
[2023-07-10 09:30] LABS: SGPT/ALT < 6 U/L (13-61); TOT PROT 6.7 g/dl (6.4-8.2)
[2023-07-10 09:31] LABS: BILIRUBIN,TOTAL 0.5 mg/dL (0.2-1)
[2023-07-10 09:32] LABS: ALK PHOS 97 U/L (45-117)
[2023-07-10] MEDS ORDERED: ASCORBIC ACID 500 MG TABLET (FP) PO SCH (10:00)
[2023-07-10] MEDS: AMOX TR/POT CLAV 500MG/125MG TABLETS (FP) PO SCH (17:26)
[2023-07-10] MEDS: OLANZapine 5 MG TABLET PO SCH (22:31)
[2023-07-11] MEDS: ENTACAPONE 200 MG TABLET PO SCH ×6 (03:09→21:34)
[2023-07-11] MEDS: CARBIDOPA/LEVODOPA 25/250 TABLET (FP) PO SCH ×6 (03:09→21:36)
[2023-07-11] MEDS: ASCORBIC ACID 500 MG TABLET (FP) PO SCH ×2 (08:12→17:04)
[2023-07-11 09:13] LABS: BASO % 0.7 % (0-2.0); EOS % 2.5 % (0-4.5); HEMATOCRIT 24.8 % (35.4-49); HEMOGLOBIN 7.9 GM/dL (11.7-16.9); LYMPH % 20.9 % (8-40); MCH 24.1 pg (25.7-33.7); MCHC 31.7 g/dl (32.0-35.9); MEAN CELL VOLUME 75.9 fl (80-96); MEAN PLT VOLUME 6.1 fl (7.5-11.1); MONO % 10.6 % (3.8-10.2); NEUT % 65.3 % (42.8-82.8); PLATELET COUNT 488 10^3/uL (134-434); RBC 3.27 M/mm3 (4.00-5.60); RDW 17.8 % (11.9-15.9); WHITE BLOOD COUNT 7.5 K/mm3 (4.0-10.0)
[2023-07-11] MEDS: AMOX TR/POT CLAV 500MG/125MG TABLETS (FP) PO SCH ×2 (09:22→17:04)
[2023-07-11] MEDS: POLYETHYLENE GLYCOL (HEALTHYLAX) 3350 17 GM PACKET PO SCH ×2 (09:22→21:34)
[2023-07-11] MEDS: TAMSULOSIN HCL 0.4 MG CAP PO SCH (09:22)
[2023-07-11] MEDS: DOCUSATE SODIUM 100 MG CAPSULE (FP) PO SCH (09:22)
[2023-07-11] MEDS: HEPARIN NA (PORCINE) 5,000 UNITS/ML 1ML VIAL SQ SCH ×2 (09:23→21:34)
[2023-07-11] MEDS: MULTIVITAMINS (DAILY MVI) TABLET (FP) PO SCH (09:23)
[2023-07-11] MEDS: ASPIRIN COATED 81 MG TABLET.EC PO SCH (09:23)
[2023-07-11] MEDS: AMINO ACIDS/PROTEIN HYDROLYS 30 ML LIQUID.PKT PO SCH (09:23)
[2023-07-11 09:31] LABS: CHLORIDE 106 mmol/L (98-107); SODIUM 138 mmol/L (136-145)
[2023-07-11 09:44] LABS: CREATININE 0.4 mg/dL (0.55-1.3); GLUCOSE,RANDOM 129 mg/dL (74-106)
[2023-07-11 09:46] LABS: ALBUMIN 2.2 g/dl (3.4-5.0); ALK PHOS 94 U/L (45-117); ANION GAP 6 MMOL/L (8-16); BILIRUBIN,TOTAL 0.5 mg/dL (0.2-1); CO2 27 mmol/L (21-32); TOT PROT 6.5 g/dl (6.4-8.2)
[2023-07-11 09:48] LABS: SGOT/AST 11 U/L (15-37)
[2023-07-11 09:49] LABS: BLOOD UREA NITROGEN 8.1 mg/dL (7-18)
[2023-07-11] MEDS ORDERED: IRON SUCROSE INJECTION 200 MG in SODIUM CHLORIDE 90 ML IVPB ONE (09:55)
[2023-07-11 09:58] LABS: SGPT/ALT < 6 U/L (13-61)
[2023-07-11] MEDS ORDERED: ACETAMINOPHEN 325 MG TABLET (FP) PO PRN (10:29)
[2023-07-11] MEDS ORDERED: OLANZapine 5 MG TABLET PO ONE (10:29)
[2023-07-11] MEDS: SODIUM CHLORIDE 1,000 ML IV SCH (15:04)
[2023-07-11] MEDS: BACITRACIN ZINC 15 GM TUBE TOPICAL OINTMENT TP SCH (17:35)
[2023-07-11] MEDS: OLANZapine 5 MG TABLET PO SCH (21:35)
[2023-07-12] MEDS: ENTACAPONE 200 MG TABLET PO SCH ×6 (01:10→21:54)
[2023-07-12] MEDS: CARBIDOPA/LEVODOPA 25/250 TABLET (FP) PO SCH ×6 (01:10→21:54)
[2023-07-12] MEDS: ASCORBIC ACID 500 MG TABLET (FP) PO SCH ×2 (06:47→16:30)
[2023-07-12] MEDS: TAMSULOSIN HCL 0.4 MG CAP PO SCH (09:39)
[2023-07-12] MEDS: AMINO ACIDS/PROTEIN HYDROLYS 30 ML LIQUID.PKT PO SCH (09:39)
[2023-07-12] MEDS: ASPIRIN COATED 81 MG TABLET.EC PO SCH (09:39)
[2023-07-12] MEDS: AMOX TR/POT CLAV 500MG/125MG TABLETS (FP) PO SCH ×2 (09:40→16:30)
[2023-07-12] MEDS: DOCUSATE SODIUM 100 MG CAPSULE (FP) PO SCH (09:40)
[2023-07-12] MEDS: OLANZapine 5 MG TABLET PO SCH ×2 (09:40→21:53)
[2023-07-12] MEDS: MULTIVITAMINS (DAILY MVI) TABLET (FP) PO SCH (09:40)
[2023-07-12] MEDS: HEPARIN NA (PORCINE) 5,000 UNITS/ML 1ML VIAL SQ SCH ×2 (09:41→21:54)
[2023-07-12] MEDS: BACITRACIN ZINC 15 GM TUBE TOPICAL OINTMENT TP SCH (09:41)
[2023-07-12] MEDS: POLYETHYLENE GLYCOL (HEALTHYLAX) 3350 17 GM PACKET PO SCH ×2 (09:42→21:55)
[2023-07-12 13:42] LABS: HEMATOCRIT 27.3 % (35.4-49); HEMOGLOBIN 8.7 GM/dL (11.7-16.9); MCH 23.9 pg (25.7-33.7); MCHC 31.8 g/dl (32.0-35.9); MEAN CELL VOLUME 75.4 fl (80-96); MEAN PLT VOLUME 6.1 fl (7.5-11.1); PLATELET COUNT 558 10^3/uL (134-434); RBC 3.62 M/mm3 (4.00-5.60); RDW 17.9 % (11.9-15.9); WHITE BLOOD COUNT 8.8 K/mm3 (4.0-10.0)
[2023-07-12] MEDS: SILVER SULFADIAZINE 1% TOP CREAM 50 GM JAR TP SCH (16:28)
[2023-07-12] MEDS: SODIUM CHLORIDE 1,000 ML IV SCH (16:29)
[2023-07-13] MEDS: ENTACAPONE 200 MG TABLET PO SCH ×6 (02:50→21:26)
[2023-07-13] MEDS: CARBIDOPA/LEVODOPA 25/250 TABLET (FP) PO SCH ×6 (02:51→21:26)
[2023-07-13] MEDS: SODIUM CHLORIDE 1,000 ML IV SCH ×3 (06:26→21:31)
[2023-07-13] MEDS: ASCORBIC ACID 500 MG TABLET (FP) PO SCH ×2 (06:26→16:34)
[2023-07-13] MEDS: AMINO ACIDS/PROTEIN HYDROLYS 30 ML LIQUID.PKT PO SCH (08:58)
[2023-07-13] MEDS: AMOX TR/POT CLAV 500MG/125MG TABLETS (FP) PO SCH ×2 (08:58→16:34)
[2023-07-13] MEDS: TAMSULOSIN HCL 0.4 MG CAP PO SCH (08:59)
[2023-07-13] MEDS: ASPIRIN COATED 81 MG TABLET.EC PO SCH (08:59)
[2023-07-13] MEDS: HEPARIN NA (PORCINE) 5,000 UNITS/ML 1ML VIAL SQ SCH ×2 (08:59→21:25)
[2023-07-13] MEDS: POLYETHYLENE GLYCOL (HEALTHYLAX) 3350 17 GM PACKET PO SCH ×2 (08:59→21:26)
[2023-07-13] MEDS: DOCUSATE SODIUM 100 MG CAPSULE (FP) PO SCH (08:59)
[2023-07-13] MEDS: OLANZapine 5 MG TABLET PO SCH ×2 (08:59→21:25)
[2023-07-13] MEDS: MULTIVITAMINS (DAILY MVI) TABLET (FP) PO SCH (08:59)
[2023-07-13] MEDS: SILVER SULFADIAZINE 1% TOP CREAM 50 GM JAR TP SCH (10:15)
[2023-07-14] MEDS: ENTACAPONE 200 MG TABLET PO SCH ×3 (02:04→09:07)
[2023-07-14] MEDS: CARBIDOPA/LEVODOPA 25/250 TABLET (FP) PO SCH ×3 (02:04→09:06)
[2023-07-14] MEDS: ASCORBIC ACID 500 MG TABLET (FP) PO SCH (07:30)
[2023-07-14] MEDS: AMINO ACIDS/PROTEIN HYDROLYS 30 ML LIQUID.PKT PO SCH (08:22)
[2023-07-14] MEDS: AMOX TR/POT CLAV 500MG/125MG TABLETS (FP) PO SCH (08:22)
[2023-07-14] MEDS: TAMSULOSIN HCL 0.4 MG CAP PO SCH (08:22)
[2023-07-14 09:01] VITALS: BP 130/67; PULSE 85; RESP 18; TEMP 98.4
[2023-07-14] MEDS: MULTIVITAMINS (DAILY MVI) TABLET (FP) PO SCH (09:05)
[2023-07-14] MEDS: DOCUSATE SODIUM 100 MG CAPSULE (FP) PO SCH (09:05)
[2023-07-14] MEDS: ASPIRIN COATED 81 MG TABLET.EC PO SCH (09:05)
[2023-07-14] MEDS: OLANZapine 5 MG TABLET PO SCH (09:06)
[2023-07-14] MEDS: HEPARIN NA (PORCINE) 5,000 UNITS/ML 1ML VIAL SQ SCH (09:06)
[2023-07-14] MEDS: POLYETHYLENE GLYCOL (HEALTHYLAX) 3350 17 GM PACKET PO SCH (09:07)
[2023-07-14] MEDS: SILVER SULFADIAZINE 1% TOP CREAM 50 GM JAR TP SCH (09:50)
== END 2023-07-14 10:55 | disposition home health service (06) | DRG 698 ==
LOC: JER 16:15 → JERBED 23:24 → J7W 07-08 08:29
PROVIDERS: ADMIT Internal Medicine; ATTEND Internal Medicine
DX: T83.518A Infection and inflammatory reaction due to other urinary catheter, initial encounter (principal); A41.9 Sepsis, unspecified organism; R53.2 Functional quadriplegia; N39.0 Urinary tract infection, site not specified; E44.0 Moderate protein-calorie malnutrition; Z68.1 Body mass index [BMI] 19.9 or less, adult; N40.0 Benign prostatic hyperplasia without lower urinary tract symptoms; F02.80 Dementia in other diseases classified elsewhere, unspecified severity, without behavioral disturbance, psychotic disturbance, mood disturbance, and anxiety; R33.8 Other retention of urine; F32.A Depression, unspecified; F41.9 Anxiety disorder, unspecified; D64.9 Anemia, unspecified; J44.9 Chronic obstructive pulmonary disease, unspecified; Y84.6 Urinary catheterization as the cause of abnormal reaction of the patient, or of later complication, without mention of misadventure at the time of the procedure
CPT/HCPCS: 36415; 71045-TC-FY; 80048; 80053; 81003; 83605; 85025; 85027; 87086; 87186; 93005; 93010; 94761; 97116-GP; 97162-GP; 99285-25; J1644; J1756

== ENCOUNTER 2023-08-07 10:34 | Inpatient (IN) | payer OTHER, MEDICARE ==
[2023-08-07] MEDS ORDERED: VANCOMYCIN 1,000 MG in DEXTROSE 5%-WATER - 250 ML IVPB ONE (11:17)
[2023-08-07] MEDS ORDERED: PIPERACILLIN/TAZOB 3.375 GM 3.375 GM in DEXTROSE 5%-WATER - 50 ML IVPB ONE (11:17)
[2023-08-07] MEDS ORDERED: VANCOMYCIN 1 GRAM (PRE-DOCKED) 1,000 MG/250 ML BAG IVPB ONE (11:43)
[2023-08-07] MEDS ORDERED: PIPERACILLIN/TAZOB 3.375 GM 3.375 GM/50 ML BAG IVPB ONE (11:43)
[2023-08-07 11:44] LABS: VENOUS BASE EXCESS -1.8 mmol/L (-2-2); VENOUS O2 SATURATION 82.6 % (70-80); VENOUS PCO2 36.4 mmHg (38-52); VENOUS PH 7.408 (7.310-7.410)
[2023-08-07 11:46] LABS: HEMATOCRIT 31.5 % (35.4-49); HEMOGLOBIN 10.1 GM/dL (11.7-16.9); MCH 23.5 pg (25.7-33.7); MCHC 32.1 g/dl (32.0-35.9); MEAN PLT VOLUME 6.5 fl (7.5-11.1); PLATELET COUNT 389 10^3/uL (134-434); RBC 4.31 M/mm3 (4.00-5.60); RDW 20.9 % (11.9-15.9); WHITE BLOOD COUNT 16.4 K/mm3 (4.0-10.0)
[2023-08-07 11:52] LABS: EPI CELLS 1 /uL (0-25.1); HYALINE CASTS 1 /uL (0-3.1); PH,URINE 5.5 (5.0-8.0); URINE APPEARANCE CLOUDY; URINE BACTERIA 1990 /uL (0-1359); URINE BILIRUBIN NEGATIVE (NEGATIVE); URINE COLOR DK YELLOW; URINE GLUCOSE (UA) NEGATIVE (NEGATIVE); URINE KETONE NEGATIVE (NEGATIVE); URINE LEUK ESTERASE 3+ (NEGATIVE); URINE NITRITE NEGATIVE (NEGATIVE); URINE PROTEIN NEGATIVE (NEGATIVE); URINE RBC 464 /uL (0-23.9); URINE UROBILINOGEN 0.2 mg/dL (0.2-1.0); URINE WBC 669 /uL (0-25.8)
[2023-08-07 11:54] LABS: INR 1.33 (0.83-1.09); PROTHROMBIN TIME (PATIENT) 15.4 SEC (9.7-13.0)
[2023-08-07 11:55] VITALS: BMI 19.5
[2023-08-07 11:57] LABS: ACTIVATED PTT 30.8 SECONDS (25.2-36.5)
[2023-08-07 12:07] LABS: CHLORIDE 101 mmol/L (98-107); POTASSIUM 5.1 mmol/L (3.5-5.1); SODIUM 134 mmol/L (136-145)
[2023-08-07 12:08] LABS: CALCIUM 8.4 mg/dL (8.5-10.1)
[2023-08-07 12:09] LABS: ALBUMIN 2.4 g/dl (3.4-5.0); ANION GAP 10 mmol/L (4-13); BLOOD UREA NITROGEN 22.2 mg/dL (7-18); CO2 23 mmol/L (21-32); GLUCOSE,RANDOM 187 mg/dL (74-106)
[2023-08-07 12:12] LABS: CREATININE 1.7 mg/dL (0.55-1.3); SGOT/AST 43 U/L (15-37)
[2023-08-07 12:14] LABS: TOT PROT 7.4 g/dl (6.4-8.2)
[2023-08-07 12:15] LABS: ALK PHOS 132 U/L (45-117)
[2023-08-07 12:18] LABS: SGPT/ALT < 6 U/L (13-61)
[2023-08-07 12:24] LABS: LACTIC ACID 4.8 mmol/L (0.4-2.0)
[2023-08-07] MEDS ORDERED: NOREPINEPHRINE BITARTRATE 4,000 MCG in DEXTROSE 5%-WATER - 496 ML IV SCH (13:00)
[2023-08-07 13:10] LABS: ANISOCYTOSIS 1+; MACROCYTOSIS 0
[2023-08-07] MEDS ORDERED: LACTATED RINGERS SOLUTION 1000 ML INFUS.BAG IV SCH (14:00)
[2023-08-07] MEDS ORDERED: LACTATED RINGERS SOLUTION 1000 ML INFUS.BAG IV ONE (14:16)
[2023-08-09] MEDS ORDERED: VANCOMYCIN/WATER FOR INJ (PEG) 1,000 MG/200 ML BAG IVPB ONE (12:08)
[2023-08-09] MEDS ORDERED: PIPERACILLIN/TAZOB 2.25 GM 2.25 GM in DEXTROSE 5%-WATER - 50 ML IVPB SCH ×2 (12:15→12:30)
[2023-08-09] MEDS: ENTACAPONE 200 MG TABLET PO SCH ×3 (14:22→21:41)
[2023-08-09] MEDS: CARBIDOPA/LEVODOPA 25/250 TABLET (FP) PO SCH ×3 (14:22→21:40)
[2023-08-09] MEDS: PIPERACILLIN/TAZOB 2.25 GM 2.25 GM in DEXTROSE 5%-WATER - 50 ML IVPB SCH (21:20)
[2023-08-09] MEDS: OLANZapine 5 MG TABLET PO SCH (21:40)
[2023-08-10] MEDS: CARBIDOPA/LEVODOPA 25/250 TABLET (FP) PO SCH ×6 (01:58→21:32)
[2023-08-10] MEDS: ENTACAPONE 200 MG TABLET PO SCH ×6 (01:58→21:32)
[2023-08-10] MEDS: PIPERACILLIN/TAZOB 2.25 GM 2.25 GM in DEXTROSE 5%-WATER - 50 ML IVPB SCH ×3 (02:00→14:02)
[2023-08-10] MEDS ORDERED: LORazepam 2 MG/ML SDV VIAL IVPUSH PRN (14:37)
[2023-08-10] MEDS ORDERED: CEFTRIAXONE 2 GM in DEXTROSE 5%-WATER 100 ML IVPB SCH (15:30)
[2023-08-10] MEDS: CEFTRIAXONE 2 GM in DEXTROSE 5%-WATER 100 ML IVPB SCH (19:39)
[2023-08-10] MEDS: OLANZapine 5 MG TABLET PO SCH (21:32)
[2023-08-11] MEDS: CARBIDOPA/LEVODOPA 25/250 TABLET (FP) PO SCH ×6 (01:19→22:06)
[2023-08-11] MEDS: ENTACAPONE 200 MG TABLET PO SCH ×6 (01:19→22:07)
[2023-08-11] MEDS: CEFTRIAXONE 2 GM in DEXTROSE 5%-WATER 100 ML IVPB SCH (10:52)
[2023-08-11] MEDS: OLANZapine 5 MG TABLET PO SCH (22:06)
[2023-08-12] MEDS: CARBIDOPA/LEVODOPA 25/250 TABLET (FP) PO SCH ×6 (02:21→22:39)
[2023-08-12] MEDS: ENTACAPONE 200 MG TABLET PO SCH ×6 (02:21→22:39)
[2023-08-12] MEDS: CEFTRIAXONE 2 GM in DEXTROSE 5%-WATER 100 ML IVPB SCH (10:42)
[2023-08-12] MEDS: OLANZapine 5 MG TABLET PO SCH (22:39)
[2023-08-13] MEDS: CARBIDOPA/LEVODOPA 25/250 TABLET (FP) PO SCH ×7 (01:48→21:48)
[2023-08-13] MEDS: ENTACAPONE 200 MG TABLET PO SCH ×6 (01:48→21:48)
[2023-08-13] MEDS: CEFTRIAXONE 2 GM in DEXTROSE 5%-WATER 100 ML IVPB SCH (10:30)
[2023-08-13] MEDS: OLANZapine 5 MG TABLET PO SCH (21:48)
[2023-08-14] MEDS: ENTACAPONE 200 MG TABLET PO SCH ×6 (02:25→21:47)
[2023-08-14] MEDS: CARBIDOPA/LEVODOPA 25/250 TABLET (FP) PO SCH ×6 (02:25→21:47)
[2023-08-14] MEDS: CEFTRIAXONE 2 GM in DEXTROSE 5%-WATER 100 ML IVPB SCH (09:36)
[2023-08-14 13:22] LABS: BASO % 0.5 % (0-2.0); EOS % 1.7 % (0-4.5); HEMATOCRIT 27.9 % (35.4-49); HEMOGLOBIN 8.8 GM/dL (11.7-16.9); LYMPH % 30.6 % (8-40); MCH 23.1 pg (25.7-33.7); MCHC 31.6 g/dl (32.0-35.9); MEAN CELL VOLUME 73.2 fl (80-96); MEAN PLT VOLUME 6.4 fl (7.5-11.1); MONO % 9.3 % (3.8-10.2); NEUT % 57.9 % (42.8-82.8); PLATELET COUNT 340 10^3/uL (134-434); RBC 3.81 M/mm3 (4.00-5.60); RDW 20.3 % (11.9-15.9)
[2023-08-14 14:02] LABS: CHLORIDE 111 mmol/L (98-107); POTASSIUM 3.8 mmol/L (3.5-5.1); SODIUM 142 mmol/L (136-145)
[2023-08-14 14:06] LABS: CALCIUM 8.4 mg/dL (8.5-10.1)
[2023-08-14 14:07] LABS: ALBUMIN 2.4 g/dl (3.4-5.0); ANION GAP 0 mmol/L (4-13); BLOOD UREA NITROGEN 14.4 mg/dL (7-18); CO2 31 mmol/L (21-32)
[2023-08-14 14:10] LABS: CREATININE 0.5 mg/dL (0.55-1.3); SGOT/AST 8 U/L (15-37); SGPT/ALT < 6 U/L (13-61)
[2023-08-14 14:11] LABS: BILIRUBIN,TOTAL 0.3 mg/dL (0.2-1); TOT PROT 6.9 g/dl (6.4-8.2)
[2023-08-14 14:17] LABS: ALK PHOS 100 U/L (45-117); GLUCOSE,RANDOM 129 mg/dL (74-106)
[2023-08-14 16:06] VITALS: RESP 18
[2023-08-14] MEDS: OLANZapine 5 MG TABLET PO SCH (21:47)
[2023-08-15] MEDS: ENTACAPONE 200 MG TABLET PO SCH ×5 (02:12→18:53)
[2023-08-15] MEDS: CARBIDOPA/LEVODOPA 25/250 TABLET (FP) PO SCH ×5 (02:12→18:53)
[2023-08-15] MEDS: CEFTRIAXONE 2 GM in DEXTROSE 5%-WATER 100 ML IVPB SCH (10:34)
[2023-08-15 15:17] VITALS: BP 100/61; PULSE 96; TEMP 98.6
== END 2023-08-15 20:30 | DRG 871 ==
LOC: JER 10:34 → JERBED 19:42 → J5S 21:31 → OBSVTOIN 08-08 09:00 → J8W 08-08 18:30
PROVIDERS: ADMIT Internal Medicine; ATTEND Internal Medicine
DX: A41.89 Other specified sepsis (principal); R65.21 Severe sepsis with septic shock; N39.0 Urinary tract infection, site not specified; E46 Unspecified protein-calorie malnutrition; Z68.1 Body mass index [BMI] 19.9 or less, adult; N17.9 Acute kidney failure, unspecified; G20.A1 Parkinson's disease without dyskinesia, without mention of fluctuations; N40.0 Benign prostatic hyperplasia without lower urinary tract symptoms; F02.80 Dementia in other diseases classified elsewhere, unspecified severity, without behavioral disturbance, psychotic disturbance, mood disturbance, and anxiety; K59.00 Constipation, unspecified; M54.50 Low back pain, unspecified; J44.9 Chronic obstructive pulmonary disease, unspecified; B96.20 Unspecified Escherichia coli [E. coli] as the cause of diseases classified elsewhere; F41.8 Other specified anxiety disorders; R94.31 Abnormal electrocardiogram [ECG] [EKG]; R33.9 Retention of urine, unspecified; N31.9 Neuromuscular dysfunction of bladder, unspecified; Z51.5 Encounter for palliative care
CPT/HCPCS: 0241U-QW; 36415; 71045-TC-FY; 80053; 81003; 82550; 82553; 82803; 82962; 83605; 84484; 85025; 85610; 85730; 86850; 86900; 86901; 87040; 87086; 87186; 87635; 93005; 93010; 99291; G0378